=== PATIENT | female | born 1955 | race Caucasian/White ===

== ENCOUNTER 2018-10-31 10:34 | Outpatient (RCR) | payer OTHER ==
[~2018-10-31 10:34] MED LIST: LIDOCAINE/PRILOCAINE 2.5-2.5% KIT ONE; MUPIROCIN 2% OINT 22 GM TUBE ONE
[2018-10-31] MEDS ORDERED: MUPIROCIN 2% OINT 22 GM TUBE ONE (12:58)
[2018-10-31] MEDS ORDERED: LIDOCAINE/PRILOCAINE 2.5-2.5% KIT ONE (12:58)
== END 2018-11-01 ==
LOC: WCC 10:34
PROVIDERS: ATTEND Family Medicine
DX: T81.30XA Disruption of wound, unspecified, initial encounter (principal); E11.8 Type 2 diabetes mellitus with unspecified complications; I87.2 Venous insufficiency (chronic) (peripheral); L88 Pyoderma gangrenosum; D89.89 Other specified disorders involving the immune mechanism, not elsewhere classified; G99.0 Autonomic neuropathy in diseases classified elsewhere; I10 Essential (primary) hypertension; I48.91 Unspecified atrial fibrillation; M13.80 Other specified arthritis, unspecified site; W45.8XXA Other foreign body or object entering through skin, initial encounter
CPT/HCPCS: 36415; 82948; 87071; 87075; 87205

== ENCOUNTER 2018-11-20 12:02 | Outpatient (RCR) | payer MEDICARE ==
[2019-02-26] MEDS ORDERED: METFORMIN HCL500 MG PO (13:29)
[2019-02-26] MEDS ORDERED: WARFARIN SODIUM1 MG PO (13:29)
[2019-02-26] MEDS ORDERED: RESTASIS OU (13:29)
[2019-02-26] MEDS ORDERED: CYCLOBENZAPRINE10 MG PO (13:29)
[2019-02-26] MEDS ORDERED: ULTRAM50 MG PO (13:29)
[2019-02-26] MEDS ORDERED: PREDNISONE10 MG PO (13:29)
[2019-02-26] MEDS ORDERED: BETAMETHASONE D15 GM TOP (13:29)
[2019-02-26] MEDS ORDERED: LYRICA75 MG PO (13:29)
[2019-02-26] MEDS ORDERED: VITAMIN D250000 UNIT PO (13:29)
[2019-02-26] MEDS ORDERED: LISINOPRIL10 MG PO (13:29)
[2019-02-26] MEDS ORDERED: OMEPRAZOLE40 MG PO (13:29)
[2019-02-26] MEDS ORDERED: ALIGN4 MG PO (13:29)
[2019-02-26] MEDS ORDERED: FOLIC ACID1 MG PO (13:29)
[2019-02-26] MEDS ORDERED: CYMBALTA30 MG PO (13:29)
== END 2018-12-01 ==
LOC: WCC 12:02
PROVIDERS: ATTEND Family Medicine
DX: T81.30XA Disruption of wound, unspecified, initial encounter (principal); E11.8 Type 2 diabetes mellitus with unspecified complications; I87.2 Venous insufficiency (chronic) (peripheral); L88 Pyoderma gangrenosum; I10 Essential (primary) hypertension; D89.89 Other specified disorders involving the immune mechanism, not elsewhere classified; G99.0 Autonomic neuropathy in diseases classified elsewhere; I48.91 Unspecified atrial fibrillation; M13.80 Other specified arthritis, unspecified site; W45.8XXA Other foreign body or object entering through skin, initial encounter

== ENCOUNTER → 2019-01-01 | Outpatient (RCR) | payer MEDICARE ==
[~2019-01-01] MED LIST changes: +ALIGN4 MG PO; +BETAMETHASONE D15 GM TOP; +CYCLOBENZAPRINE10 MG PO; +CYMBALTA30 MG PO; +FOLIC ACID1 MG PO; +LIDOCAINE VISC 2% SOLN 15 ML UDC ONE; +LISINOPRIL10 MG PO; +LYRICA75 MG PO; +METFORMIN HCL500 MG PO; +OMEPRAZOLE40 MG PO; +PREDNISONE10 MG PO; +RESTASIS OU; +ULTRAM50 MG PO; +VITAMIN D250000 UNIT PO; +WARFARIN SODIUM1 MG PO
== END ==
LOC: WCC 12-04 09:00
PROVIDERS: ATTEND Family Medicine
DX: E11.8 Type 2 diabetes mellitus with unspecified complications (principal); S81.802A Unspecified open wound, left lower leg, initial encounter; I87.2 Venous insufficiency (chronic) (peripheral); L88 Pyoderma gangrenosum; I10 Essential (primary) hypertension; D89.89 Other specified disorders involving the immune mechanism, not elsewhere classified; G99.0 Autonomic neuropathy in diseases classified elsewhere; I48.91 Unspecified atrial fibrillation; M13.80 Other specified arthritis, unspecified site; W45.8XXA Other foreign body or object entering through skin, initial encounter

== ENCOUNTER 2019-01-22 10:50 | Outpatient (RCR) | payer MEDICARE, OTHER ==
[~2019-01-22 10:50] MED LIST changes: -ALIGN4 MG PO; -BETAMETHASONE D15 GM TOP; +COLLAGENASE OINTMENT 30 GM TUBE ONE; -CYCLOBENZAPRINE10 MG PO; -CYMBALTA30 MG PO; -FOLIC ACID1 MG PO; -LIDOCAINE VISC 2% SOLN 15 ML UDC ONE; -LISINOPRIL10 MG PO; -LYRICA75 MG PO; -METFORMIN HCL500 MG PO; -MUPIROCIN 2% OINT 22 GM TUBE ONE; -OMEPRAZOLE40 MG PO; -PREDNISONE10 MG PO; -RESTASIS OU; -ULTRAM50 MG PO; -VITAMIN D250000 UNIT PO; -WARFARIN SODIUM1 MG PO
[2019-01-22] MEDS ORDERED: LIDOCAINE/PRILOCAINE 2.5-2.5% KIT ONE (18:43)
[2019-01-22] MEDS ORDERED: MUPIROCIN 2% OINT 22 GM TUBE ONE (18:43)
[2019-01-22] MEDS ORDERED: COLLAGENASE OINTMENT 30 GM TUBE ONE (18:43)
[2019-02-26] MEDS ORDERED: BETAMETHASONE D15 GM TOP (13:29)
[2019-02-26] MEDS ORDERED: LISINOPRIL10 MG PO (13:29)
[2019-02-26] MEDS ORDERED: OMEPRAZOLE40 MG PO (13:29)
[2019-02-26] MEDS ORDERED: FOLIC ACID1 MG PO (13:29)
[2019-02-26] MEDS ORDERED: CYCLOBENZAPRINE10 MG PO (13:29)
[2019-02-26] MEDS ORDERED: VITAMIN D250000 UNIT PO (13:29)
[2019-02-26] MEDS ORDERED: METFORMIN HCL500 MG PO (13:29)
[2019-02-26] MEDS ORDERED: ALIGN4 MG PO (13:29)
[2019-02-26] MEDS ORDERED: RESTASIS OU (13:29)
[2019-02-26] MEDS ORDERED: LYRICA75 MG PO (13:29)
[2019-02-26] MEDS ORDERED: ULTRAM50 MG PO (13:29)
[2019-02-26] MEDS ORDERED: WARFARIN SODIUM1 MG PO (13:29)
[2019-02-26] MEDS ORDERED: PREDNISONE10 MG PO (13:29)
[2019-02-26] MEDS ORDERED: CYMBALTA30 MG PO (13:29)
== END 2019-02-01 ==
LOC: WCC 10:50
PROVIDERS: ATTEND Family Medicine
DX: E11.8 Type 2 diabetes mellitus with unspecified complications (principal); S81.802A Unspecified open wound, left lower leg, initial encounter; L88 Pyoderma gangrenosum; I87.2 Venous insufficiency (chronic) (peripheral); I10 Essential (primary) hypertension; D89.89 Other specified disorders involving the immune mechanism, not elsewhere classified; G99.0 Autonomic neuropathy in diseases classified elsewhere; I48.91 Unspecified atrial fibrillation; M13.80 Other specified arthritis, unspecified site; W45.8XXA Other foreign body or object entering through skin, initial encounter

== ENCOUNTER → 2019-02-27 | Day surgery (SDC) | payer MEDICARE ==
[2019-02-26 12:53] LABS: BASOPHILS % 0.1 % (0.0-1.0); EOSINOPHILS % 0.2 % (0.0-6.0); HEMATOCRIT 36.6 % (34.2-44.1); HEMOGLOBIN 11.2 g/dL (12.0-16.0); LYMPHOCYTES # (AUTO) 1.3 (1.0-3.2); LYMPHOCYTES % 13.5 % (18.0-39.1); MEAN CORPUSCULAR HEMOGLOBIN 25.3 pg (28-32); MEAN CORPUSCULAR HGB CONC 30.6 g/dL (31-35); MEAN CORPUSCULAR VOLUME 82.6 fL (81-99); MONOCYTES # (AUTO) 0.2 (0.2-0.8); MONOCYTES % 2.3 % (4.4-11.3); NEUTROPHILS # (AUTO) 8.1 (2.1-6.9); NEUTROPHILS % 83.5 % (38.7-80.0); PLATELET COUNT 212 x10e3/uL (140-360); RED BLOOD COUNT 4.43 x10e6/uL (3.6-5.1); RED CELL DISTRIBUTION WIDTH 18.1 % (11.7-14.4)
[2019-02-26 13:09] LABS: ANION GAP 15.6 mmol/L (8-16); BLOOD UREA NITROGEN 15 mg/dL (7-26); BUN/CREATININE RATIO 19 (6-25); CALCIUM 10.2 mg/dL (8.4-10.2); CARBON DIOXIDE 26 mmol/L (22-29); CHLORIDE 101 mmol/L (98-107); CREATININE, SERUM 0.79 mg/dL (0.57-1.11); EST GLOMERULAR FILTRATION RATE > 60 ML/MIN (60-); GLUCOSE 123 mg/dL (74-118); POTASSIUM 4.6 mmol/L (3.5-5.1); SODIUM 138 mmol/L (136-145)
[~2019-02-27] MED LIST changes: +ALIGN4 MG PO; +BETAMETHASONE D15 GM TOP; +CEFAZOLIN SOD 1 GM/NS 50ML 50 ML IV ONE; -COLLAGENASE OINTMENT 30 GM TUBE ONE; +CYCLOBENZAPRINE10 MG PO; +CYMBALTA30 MG PO; +DEXAMETHASONE SOD PHOS INJ 4 MG/ML VIAL ONE; +DEXTROSE 5% 250ML 250 ML IV ONE; +FENTANYL CITRATE/PF 100MCG/2 ML INJ ONE; +FOLIC ACID1 MG PO; +LIDOCAINE HCL 2% LOCAL INJ 5 ML SDV VIAL INJ ONE; -LIDOCAINE/PRILOCAINE 2.5-2.5% KIT ONE; +LISINOPRIL10 MG PO; +LYRICA75 MG PO; +METFORMIN HCL500 MG PO; +MIDAZOLAM HCL 2 MG/2 ML VIAL ONE; +OMEPRAZOLE40 MG PO; +ONDANSETRON HCL INJ 2MG/ML 2ML 2 MG/ML VIAL ONE; +PREDNISONE10 MG PO; +PROPOFOL IV EMULSION 10 MG/ML 20 ML VIAL ONE; +RESTASIS OU; +SEVOFLURANE INHAL SOLN 250 ML PEN BTL ONE; +ULTRAM50 MG PO; +VITAMIN D250000 UNIT PO; +WARFARIN SODIUM1 MG PO
--- OUTSIDE RECORDS SUMMARY | 2019-02-27 07:58 | XMS REPORT | Continuity of Care Document ---
Author Author [employer] Address Unknown Phone Unavailable Care Team Providers Care Steamfitter Apprentice Name Role Phone [employer] Unavailable Unavailable Problems Problem Status Onset Date Classification Date Reported Comments Source Hemangioma of skin and subcutaneous tissue Active Problem 03/22/2018 [facility] Unspecified osteoarthritis, unspecified site Active Problem 03/22/2018 [facility] Pyoderma gangrenosum Active Problem 03/22/2018 Madeline H Jessa,[facility] Pyoderma gangrenosum Active Problem 03/22/2018 [facility] Laceration without foreign body of left forearm, initial encounter Active Problem 03/22/2018 [facility] LDL-c greater than or equal to 100 mg/dl Active Problem 07/14/2017 Madeline H Jessa Leukocytosis, unspecified type Active Problem 07/14/2017 Madeline H Jessa Pyoderma gangrenosa Active Problem 07/14/2017 Madeline H Jessa Hyperlipidemia, unspecified hyperlipidemia type Active Problem 07/14/2017 Madeline H Jessa Diabetes mellitus Active Problem 07/14/2017 Madeline H Jessa Blurry vision Active Problem 07/14/2017 Madeline H Jessa BMI less than 19,adult Active Problem 07/14/2017 Madeline H Jessa Bronchitis Active Problem 07/14/2017 Madeline H Jessa Benign essential hypertension Active Problem 07/14/2017 Madeline H Jessa Generalized weakness Active Problem 07/14/2017 Madeline H Jessa No-show for appointment Active Problem 07/14/2017 Madeline H Jessa Unspecified open wound, left lower leg, initial encounter Active Problem 07/14/2017 Madeline H Jessa Essential hypertension, benign Active Problem 07/14/2017 Madeline H Jessa Unspecified osteoarthritis, unspecified site Active Problem 07/14/2017 Madeline H Jessa Screening for breast cancer Active Problem 07/14/2017 Madeline H Jessa Screening for osteoporosis Active Problem 07/14/2017 Madeline H Jessa Osteoarthritis, unspecified osteoarthritis type, unspecified site Active Problem 07/14/2017 Madeline H Jessa Ulcer of left lower leg Active Problem 07/14/2017 Madeline H Jessa Cellulitis of left lower limb Active Problem 07/14/2017 Madeline H Jessa Chronic pain Active Problem 07/14/2017 Madeline H Jessa BMI less than 19,adult Active Problem 07/14/2017 Madeline H Jessa Non-pressure chronic ulcer of left calf, limited to breakdown of skin Active Problem 07/14/2017 Madeline H Jessa RA Active Diagnosis 07/14/2017 Madeline H Jessa Pre-operative clearance Active Problem 07/14/2017 Madeline H Jessa Cataract, unspecified cataract type, unspecified laterality Active Problem 07/14/2017 Madeline H Jessa Dehydration Active Problem 07/14/2017 Madeline H Jessa Frequency of urination Active Problem 07/14/2017 Madeline H Jessa Gastroenteritis Active Problem 07/14/2017 Madeline H Jessa Urinary tract infection, site not specified Active Problem 03/22/2018 [facility] Dermatitis, unspecified Active Problem 03/22/2018 [facility] Impetigo, unspecified Active Problem 03/22/2018 [facility] Other skin changes due to chronic exposure to nonionizing radiation Active Problem 03/22/2018 [facility] Other respiratory tuberculosis Active Problem 03/22/2018 [facility] Frequency of micturition Active Problem 03/22/2018 [facility] Frequent falls Active Diagnosis 07/14/2017 Madeline Adrianna Germain Medications Medication Details Route Status Patient Instructions Ordering Provider Order Date Source [facility] for pyoderma gangrenosum subcutaneous injection Active 40mg/.8ml subcutaneous injection Inject 160mg on day 1, 80 mg on day 15, 40mg day 29 Kiya 03/21/2018 [facility] K-Dur 1 tablet Orally Active 10meq Orally Daily Jessa 07/10/2017 Madeline H Jessa Lasix 1 tablet Orally Active 20 mg Orally Once a day Jessa 07/10/2017 Madeline H Jessa Cipro 1 tablet Orally Active 500 mg Orally Twice a day [facility] 06/25/2017 Madeline H Jessa Glucophage 1 tablet with meals Orally Active 500 MG Orally Twice a day [facility] 10/12/2016 Madeline H Jessa Lipitor 1 tablet Orally Active 20 MG Orally Once a day [facility] 09/15/2016 Madeline H Jessa Norvasc 1 tablet Orally Active 10 mg Orally once a day [facility] 02/21/2016 Madeline H Jessa PredniSONE 1 tablet Orally Active 10 MG Orally Once a day [facility] Orally Active 20 mg Orally Once a day [facility] 02/21[facility] Om[facility] 2 capsules Orally Active 20 mg Orally Once a day [facility] 02/21/[facility] PredniSONE 1 tablet Orally Active 10 MG Orally Once a day [facility] 02/21/[facility] Norvasc 1 tablet Orally Active 10 mg Orally once a day [facility] 02/21/[facility] PredniSONE 1 tablet Orally Active 20 mg Orally Once a day [facility] 02/21/2016 [facility] Toprol XL 1 tablet Orally Active 100 mg Orally Once a day [facility] as directed Externally Active . Externally Once a Day [facility] X[facility] Petrolatum Dressing as directed Externally Active 1 Externally Once a Day [facility]/05[facility] as directed Externally Active . Externally Once a Day [facility] 10/05[facility] Petrolatum Dressing as directed Externally Active 1 Externally Once a Day [facility] 10/05/2015 [facility] Lidocaine 1 patch to intact skin remove after 12 hours Externally Active 5 % Externally Once a day [facility] 09/21[facility] Lid[facility] 1 patch to intact skin remove after 12 hours Externally Active 5 % Externally Once a day [facility] 09/21/[facility] Ultram 1 tablet as needed Orally Active 50 mg Orally every six to eight hours, PRN for Pain [facility] 05/26/2015 [facility] Protopic 1 application a thin layer to affected areas for atopic dermatitis Externally Active 0.1 % Externally Twice a day [facility] Ascorbic Acid 1 tablet Orally Active 500 MG Orally Once a day [facility] Lisinop[facility] 1 tablet Orally Active 40 MG Orally Once a day [facility] 1 tablet as needed Orally Active 50 mg Orally every six to eight hours, PRN for Pain [facility] Toprol XL 1 tablet Orally Active 200 MG Orally Once a day [facility] Zestril 1 tablet Orally Active 40 MG Orally Once a day Jessa Madeline H Jessa Zestril 1 tablet Orally Active 40 MG Orally Once a day Jessa Madeline H Jessa Glucophage 1 tablet with meals Orally Active 500 MG Orally Twice a day Jessa Madeline H Jessa Lipitor 1 tablet Orally Active 20 mg Orally Once a day Ejssa Madeline H Jessa Ultram 1 tablet as needed Orally Active 50 mg Orally every six to eight hours, PRN for Pain Jessa Madeline H Jessa Ibuprofen 1 tablet Orally Active 800 MG Orally as needed (prn) Jessa Madeline H Jessa Lyrica 1 capsule Orally Active 75 MG Orally Twice a day Jessa Madeline H Jessa Lyrica 1 capsule Orally Active 50 mg Orally Twice a day Jessa Madeline H Jessa Allergies, Adverse Reactions, Alerts Substance Category Reaction Severity Reaction type Status Date Reported Comments Source N.K.D.A. Adverse Reaction Info Not Available Adverse Reaction Active 07/10/2017 Madeline H Jessa Immunizations No Data Provided for This Section Results No Data Provided for This Section Pathology Reports No Data Provided for This Section Diagnostic Reports No Data Provided for This Section Consultation Notes No Data Provided for This Section Discharge Summaries No Data Provided for This Section History and Physicals No Data Provided for This Section Vital Signs Vital Sign Value Date Comments Source Diastolic (mm Hg) 80 07/10/2017 Madeline H Jessa Systolic (mm Hg) 140 07/10/2017 Madeline H Jessa Height 66 07/10/2017 Madeline H Jessa Temperature Oral (F) 98.0 F 07/10/2017 Madeline H Jessa Respitory Rate 16 07/10/2017 Madeline H Jessa Heart Rate 80 07/10/2017 Madeline H Jessa Diastolic (mm Hg) 60 06/25/2017 Madeline H Jessa Systolic (mm Hg) 100 06/25/2017 Madeline H Jessa Height 66 06/25/2017 Madeline H Jessa Temperature Oral (F) 97.5 F 06/25/2017 Madeline H Jessa Respitory Rate 16 06/25/2017 Madeline H Jessa Heart Rate 80 06/25/2017 Madeline H Jessa Diastolic (mm Hg) 80 06/14/2017 Madeline H Jessa Systolic (mm Hg) 140 06/14/2017 Madeline H Jessa Height 66 06/14/2017 Madeline H Jessa Temperature Oral (F) 98.2 F 06/14/2017 Madeline H Jessa Respitory Rate 16 06/14/2017 Madeline H Jessa Heart Rate 80 06/14/2017 Madeline H Jessa Diastolic (mm Hg) 80 02/26/2017 Madeline H Jessa Systolic (mm Hg) 120 02/26/2017 Madeline H Jessa Height 66 02/26/2017 Madeline H Jessa Temperature Oral (F) 98.0 F 02/26/2017 Madeline H Jessa Respitory Rate 16 02/26/2017 Madeline H Jessa Heart Rate 80 02/26/2017 Madeline H Jessa Weight 108 02/09/2017 Madeline H Jessa Height 66 02/09/2017 Madeline H Jessa Respitory Rate 16 02/09/2017 Madeline H Jessa Heart Rate 80 02/09/2017 Madeline H Jessa Diastolic (mm Hg) 80 02/09/2017 Madeline H Jessa Systolic (mm Hg) 120 02/09/2017 Madeline H Jessa Temperature Oral (F) 98.2 F 02/09/2017 Madeline H Jessa Diastolic (mm Hg) 70 10/12/2016 Madeline H Jessa Systolic (mm Hg) 120 10/12/2016 Madeline H Jessa Height 66 10/12/2016 Madeline H Jessa Temperature Oral (F) 98.0 F 10/12/2016 Madeline H Jessa Respitory Rate 16 10/12/2016 Madeline H Jessa Heart Rate 80 10/12/2016 Madeline H Jessa Weight 108 09/15/2016 Madeline H Jessa Height 66 09/15/2016 Madeline H Jessa Respitory Rate 16 09/15/2016 Madeline H Jessa Heart Rate 80 09/15/2016 Madeline H Jessa Diastolic (mm Hg) 70 09/15/2016 Madeline H Jessa Systolic (mm Hg) 120 09/15/2016 Madeline H Jessa Temperature Oral (F) 98.0 F 09/15/2016 Madeline H Jessa Weight 107 05/30/2016 Madeline H Jessa Height 66 05/30/2016 Madeline H Jessa Respitory Rate 16 05/30/2016 Madeline H Jessa Heart Rate 80 05/30/2016 Madeline H Jessa Diastolic (mm Hg) 80 05/30/2016 Madeline H Jessa Systolic (mm Hg) 130 05/30/2016 Madeline H Jessa Temperature Oral (F) 98.2 F 05/30/2016 Madeline H Jessa Diastolic (mm Hg) 80 02/21/2016 Madeline H Jessa Systolic (mm Hg) 140 02/21/2016 Madeline H Jessa Height 66 02/21/2016 Madeline H Jessa Temperature Oral (F) 98.2 F 02/21/2016 Madeline H Jessa Respitory Rate 16 02/21/2016 Madeline H Jessa Heart Rate 80 02/21/2016 Madeline H Jessa Weight 110 09/21/2015 Madeline H Jessa Height 66 09/21/2015 Madeline H Jessa Respitory Rate 16 09/21/2015 Madeline H Jessa Heart Rate 80 09/21/2015 Madeline H Jessa Diastolic (mm Hg) 80 09/21/2015 Madeline H Jessa Systolic (mm Hg) 120 09/21/2015 Madeline H Jessa Temperature Oral (F) 98.2 F 09/21/2015 Madeline H Jessa Diastolic (mm Hg) 80 07/28/2015 Madeline H Jessa Systolic (mm Hg) 120 07/28/2015 Madeline H Jessa Height 66 07/28/2015 Amdeline H Jessa Temperature Oral (F) 98.0 F 07/28/2015 Madeline H Jessa Respitory Rate 16 07/28/2015 Madeline H Jessa Heart Rate 80 07/28/2015 Madeline H Jessa Diastolic (mm Hg) 80 05/26/2015 Madeline H Jessa Systolic (mm Hg) 120 05/26/2015 Madeline H Jessa Height 66 05/26/2015 Madeline H Jessa Temperature Oral (F) 98.2 F 05/26/2015 Madeline H Jessa Respitory Rate 16 05/26/2015 Madeline H Jessa Heart Rate 80 05/26/2015 Madeline H Jessa Weight 112 02/01/2015 Madeline H Jessa Height 66 02/01/2015 Madeline H Jessa Respitory Rate 16 02/01/2015 Madeline H Jessa Heart Rate 80 02/01/2015 Madeline H Jessa Diastolic (mm Hg) 80 02/01/2015 Madeline H Jessa Systolic (mm Hg) 160 02/01/2015 Madeline H Jessa Temperature Oral (F) 98.2 F 02/01/2015 Madeline H Jessa Encounters Location Location Details Encounter Type Encounter Number Reason For Visit Attending Provider ADM Date DC Date Status Source Madeline Germain MD Refill [id number] 10/05/2015 10/05/2015 Madeline Germain MD Refill [id number] 10/05/2015 10/05/2015 Madeline Germain MD Refill [id number] 10/05/2015 10/05/2015 Madeline Germain MD Refill [id number] 10/05/2015 10/05/2015 Madeline Germain MD Referral - Eye Dr. [id number] 02/21/2016 02/21/2016 Madeline Germain MD Referral - Eye Dr. [id number] 02/21/2016 02/21/2016 Madeline Germain MD Referral - Eye Dr. [id number] 02/21/2016 02/21/2016 Madeline Germain MD F/Up from [facility] [id number] 05/30/2016 05/30/2016 Madeline Germain MD Mammogram/BMD Orders [id number] 05/30/2016 05/30/2016 Madeline Germain MD Mammogram/BMD Orders [id number] 05/30/2016 05/30/2016 Madeline Germain Procedures No Data Provided for This Section Assessment and Plan No Data Provided for This Section Plan of Care No Data Provided for This Section Social History Social History Date Source Social History ElementQualifiersDate Reported Tobacco Use: . Are you a: never smoker May 30, 2016 Marital Status: . Single May 30, 2016 Caffeine intake? . Status: Yes, What type: Coffee, 2 Cups Per Day May 30, 2016 Do you drink alcohol? . Status: No May 30, 2016 05/30/2016 Madeline Germain Family History Value Date Source QualifierDescriptionCommentDate Reported Maternal Grandmother Comment not available Feb 21, 2016 Paternal Grandmother Comment not available Feb 21, 2016 Siblings Comment not available Feb 21, 2016 Maternal Grandfather Comment not available Feb 21, 2016 Children Comment not available Feb 21, 2016 Father Parkinson Feb 21, 2016 Paternal Grandfather Comment not available Feb 21, 2016 Mother Alzheimer Feb 21, 2016 Other: Comment not available Feb 21, 2016 02/28/2016 Madeline Germain Advance Directives No Data Provided for This Section Functional Status No Data Provided for This Section
--- OUTSIDE RECORDS SUMMARY | 2019-02-27 07:58 | XMS REPORT ---
Author Author Madeline Germain Organization [employer] Address Unknown Phone Unavailable Care Team Providers Care Non Destructive Evaluation Technician Name Role Phone Madeline Germain CP Unavailable Allergies, Adverse Reactions, Alerts Substance Reaction Event Type N.K.D.A. Info Not Available Non Drug Allergy Problems Problem Type Condition Code Onset Dates Condition Status Assessment Non-pressure chronic ulcer of left calf, 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 Active Problem Unspecified osteoarthritis, unspecified site 715.90 Active Problem BMI less than 19,adult V85.0 Active Problem Pyoderma gangrenosum L88 Active Problem Ulcer of left lower leg L97.929 Active Problem Non-pressure chronic ulcer of left calf, 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 Active Problem Unspecified open wound, left lower leg, initial encounter 891.0 Active Problem Essential hypertension, benign 401.1 Active Problem Chronic pain G89.29 Active Problem Cellulitis of left lower limb 682.6 Active Assessment Chronic pain G89.29 Active Assessment Ulcer of left lower leg L97.929 Active Assessment Pyoderma gangrenosum L88 Active Medications Medication Code System Code Instructions Start Date End Date Status Dosage Lyrica [facility] [address]-21 50 mg Orally Twice a day Active 1 capsule Ibuprofen [facility] [address]-96 800 MG Orally as needed (prn) Active 1 tablet Ultram [facility] [address]-23 50 mg Orally every six to eight hours, PRN for Pain May 26, 2015 Active 1 [place] [address]-96 50 mg Orally every six to eight hours, PRN for Pain Active 1 tablet as needed Vital Signs Date/Time: May 26, 2015 Blood Pressure Diastolic 80 mm Hg Blood Pressure Systolic 120 mm Hg Height 66 in Temperature 98.2 F Respiratory Rate 16 /min Cardiac Monitoring Heart Rate 80 /min Results No Known Results Summary Purpose [employer] Submission
--- OUTSIDE RECORDS SUMMARY | 2019-02-27 07:58 | XMS REPORT ---
Author Author Madeline Germain Organization [employer] Address Unknown Phone Unavailable Care Team Providers Care Laser Beam Trim Operator Name Role Phone Madeline Germain CP Unavailable Allergies, Adverse Reactions, Alerts Substance Reaction Event Type N.K.D.A. Info Not Available Non Drug Allergy Problems Problem Type Condition Code Onset Dates Condition Status Assessment BMI less than 19,adult V85.0 Active Assessment Essential hypertension, benign 401.1 Active Assessment Unspecified osteoarthritis, unspecified site 715.90 Active Problem Unspecified open wound, left lower leg, initial encounter 891.0 Active Problem Essential hypertension, benign 401.1 Active Problem Cellulitis of left lower limb 682.6 Active Assessment Cellulitis of left lower limb 682.6 Active Assessment Unspecified open wound, left lower leg, initial encounter 891.0 Active Problem Unspecified osteoarthritis, unspecified site 715.90 Active Problem BMI less than 19,adult V85.0 Active Medications Medication Code System Code Instructions Start Date End Date Status Dosage Ibuprofen [facility] [address]-91 800 MG Orally as needed (prn) Active 1 tablet Vital Signs Date/Time: Feb 01, 2015 BMI 18.08 Index Weight 112 lbs Height 66 in Respiratory Rate 16 /min Cardiac Monitoring Heart Rate 80 /min Blood Pressure Diastolic 80 mm Hg Blood Pressure Systolic 160 mm Hg Temperature 98.2 F Results No Known Results Summary Purpose [employer] Submission
--- OUTSIDE RECORDS SUMMARY | 2019-02-27 07:58 | XMS REPORT ---
Author Author Madeline Germain Organization [employer] Address Unknown Phone Unavailable Care Team Providers Care Recovery Collector Name Role Phone Madeline Germain CP Unavailable Allergies, Adverse Reactions, Alerts Substance Reaction Event Type N.K.D.A. Info Not Available Non Drug Allergy Problems Problem Type Condition Code Onset Dates Condition Status Problem Unspecified open wound, left lower leg, initial encounter 891.0 Active Problem Chronic pain G89.29 Active Problem Cellulitis of left lower limb 682.6 Active Problem BMI less than 19,adult Z68.1 Active Problem Pyoderma gangrenosa L88 Active Problem Diabetes mellitus E11.9 Active Problem Pyoderma gangrenosum L88 Active Problem Ulcer of left lower leg L97.929 Active Problem RA (rheumatoid arthritis) M06.9 Active Problem Non-pressure chronic ulcer of left calf, 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 Active Assessment BMI less than 19,adult Z68.1 Active Assessment RA (rheumatoid arthritis) M06.9 Active Assessment Diabetes mellitus E11.9 Active Problem BMI less than 19,adult V85.0 Active Assessment Chronic pain G89.29 Active Problem Unspecified osteoarthritis, unspecified site 715.90 Active Assessment Pyoderma gangrenosa L88 Active Problem Essential hypertension, benign 401.1 Active Medications Medication Code System Code Instructions Start Date End Date Status Dosage Ultram [facility] [address]-46 50 mg Orally every six to eight hours, PRN for Pain [facility] 1 tablet [facility] [address] . Externally Once a Day October 05, 2015 Active as directed Ibuprofen [facility] [address]-89 800 MG Orally as needed (prn) Active 1 tablet Lyrica [facility] [address]-66 50 mg Orally Twice a day Active 1 capsule Lidocaine [facility] [address]-74 5 % Externally Once a day September 21, 2015 Active 1 patch to intact skin remove after 12 hours Vital Signs Date/Time: September 21, 2015 BMI 17.75 Index Weight 110 lbs Height 66 in Respiratory Rate 16 /min Cardiac Monitoring Heart Rate 80 /min Blood Pressure Diastolic 80 mm Hg Blood Pressure Systolic 120 mm Hg Temperature 98.2 F Results No Known Results Summary Purpose [employer] Submission
--- OUTSIDE RECORDS SUMMARY | 2019-02-27 07:58 | XMS REPORT ---
Author Author Madeline Germain Organization [employer] Address Unknown Phone Unavailable Care Team Providers Care Computer Network Specialist Name Role Phone Madeline Germain CP Unavailable Allergies, Adverse Reactions, Alerts Substance Reaction Event Type N.K.D.A. Info Not Available Non Drug Allergy Problems Problem Type Condition Code Onset Dates Condition Status Problem Unspecified osteoarthritis, unspecified site 715.90 Active Problem Unspecified open wound, left lower leg, initial encounter 891.0 Active Problem Essential hypertension, benign 401.1 Active Problem RA (rheumatoid arthritis) M06.9 Active Problem Non-pressure chronic ulcer of left calf, 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 Active Problem Pyoderma gangrenosa L88 Active Problem Chronic pain G89.29 Active Problem Cellulitis of left lower limb 682.6 Active Problem Pyoderma gangrenosum L88 Active Problem Ulcer of left lower leg L97.929 Active Assessment RA (rheumatoid arthritis) M06.9 Active Assessment Pyoderma gangrenosa L88 Active Problem BMI less than 19,adult V85.0 Active Medications Medication Code System Code Instructions Start Date End Date Status Dosage Ibuprofen [facility] [address]-76 800 MG Orally as needed (prn) Active 1 tablet Ultram [facility] [address]-03 50 mg Orally every six to eight hours, PRN for Pain Active 1 tablet as needed Lyrica [facility] [address]-96 50 mg Orally Twice a day Active 1 capsule Vital Signs Date/Time: Jul 28, 2015 Blood Pressure Diastolic 80 mm Hg Blood Pressure Systolic 120 mm Hg Height 66 in Temperature 98.0 F Respiratory Rate 16 /min Cardiac Monitoring Heart Rate 80 /min Results No Known Results Summary Purpose [employer] Submission
--- OUTSIDE RECORDS SUMMARY | 2019-02-27 07:58 | XMS REPORT ---
Author Author Madeline Germain Organization [employer] Address Unknown Phone Unavailable Care Team Providers Care Zoo Veterinarian Name Role Phone Madeline Germain CP Unavailable Allergies, Adverse Reactions, Alerts Substance Reaction Event Type N.K.D.A. Info Not Available Non Drug Allergy Problems Problem Type Condition Code Onset Dates Condition Status Assessment LDL-c greater than or equal to 100 mg/dl Z78.9 Active Assessment Leukocytosis, unspecified type D72.829 Active Assessment Pyoderma gangrenosa L88 Active Assessment Hyperlipidemia, unspecified hyperlipidemia type E78.5 Active Problem Diabetes mellitus E11.9 Active Assessment Diabetes mellitus E11.9 Active Problem Blurry vision H53.8 Active Problem BMI less than 19,adult V85.0 Active Problem Bronchitis J40 Active Problem Benign essential hypertension I10 Active Problem Generalized weakness R53.1 Active Problem LDL-c greater than or equal to 100 mg/dl Z78.9 Active Problem No-show for appointment Z53.29 Active Problem Unspecified open wound, left lower leg, initial encounter 891.0 Active Problem Essential hypertension, benign 401.1 Active Problem Leukocytosis, unspecified type D72.829 Active Problem Unspecified osteoarthritis, unspecified site 715.90 Active Problem Screening for breast cancer Z12.39 Active Problem Screening for osteoporosis Z13.820 Active Problem Hyperlipidemia, unspecified hyperlipidemia type E78.5 Active Problem Osteoarthritis, unspecified osteoarthritis type, unspecified site M19.90 Active Problem Ulcer of left lower leg L97.929 Active Problem Pyoderma gangrenosum L88 Active Problem Cellulitis of left lower limb 682.6 Active Problem Chronic pain G89.29 Active Problem Pyoderma gangrenosa L88 Active Problem BMI less than 19,adult Z68.1 Active Problem Non-pressure chronic ulcer of left calf, 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 Active Problem RA (rheumatoid arthritis) M06.9 Active Medications Medication Code System Code Instructions Start Date End Date Status Dosage Lipitor [facility] [address]-67 20 MG Orally Once a day September 15, 2016 Active 1 tablet Ascorbic Acid [facility] [address]-05 500 MG Orally Once a day Active 1 tablet Lisinopril [facility] [address]-55 40 MG Orally Once a day Active 1 tablet Lidocaine [facility] [address]-22 5 % Externally Once a day September 21, 2015 Active 1 patch to intact skin remove after 12 hours Norvasc [facility] [address]-58 10 mg Orally once a day Feb 21, 2016 Active 1 tablet Medihoney Wound/Burn Dressing [facility] [address]856 . Externally Once a Day October 05, 2015 Active as directed Glucophage [facility] [address]-64 500 MG Orally Twice a day October 12, 2016 Active 1 tablet with meals PredniSONE [facility] [address]-48 10 MG Orally Once a day Feb 21, 2016 Active 1 tablet Ultram [facility] [address]-86 50 mg Orally every six to eight hours, PRN for Pain Active 1 tablet as needed Omeprazole [facility] [address]-80 20 mg Orally Once a day Feb 21, 2016 Active 2 capsules Xeroform Petrolatum Dressing [facility] 8884-577480 1 Externally Once a Day October 05, 2015 Active as directed Toprol XL [facility] [address]-14 200 MG Orally Once a day Active 1 tablet Zestril [facility] [address]-61 40 MG Orally Once a day Active 1 tablet Vital Signs Date/Time: October 12, 2016 Blood Pressure Diastolic 70 mm Hg Blood Pressure Systolic 120 mm Hg Height 66 in Temperature 98.0 F Respiratory Rate 16 /min Cardiac Monitoring Heart Rate 80 /min Results No Known Results Summary Purpose [employer] Submission
--- OUTSIDE RECORDS SUMMARY | 2019-02-27 07:58 | XMS REPORT ---
Author Author Holland Huertas Organization [employer] Address Unknown Phone Unavailable Care Team Providers Care Emergency Physician Name Role Phone Holland Huertas CP Unavailable Allergies No Known Allergies Problems Problem Type Condition Code Onset Dates Condition Status Problem Hemangioma of skin and subcutaneous tissue D18.01 Active Problem Unspecified osteoarthritis, unspecified site M19.90 Active Problem Pyoderma gangrenosum L88 Active Medications No Known Medications Results No Known Results Summary Purpose [employer] Submission
--- OUTSIDE RECORDS SUMMARY | 2019-02-27 07:58 | XMS REPORT ---
Author Author Madeline Germain Organization [employer] Address Unknown Phone Unavailable Care Team Providers Care Ampoule Filler Name Role Phone Madeline Germain CP Unavailable Allergies, Adverse Reactions, Alerts Substance Reaction Event Type N.K.D.A. Info Not Available Non Drug Allergy Problems Problem Type Condition Code Onset Dates Condition Status Assessment Osteoarthritis, unspecified osteoarthritis type, unspecified site M19.90 Active Problem RA (rheumatoid arthritis) M06.9 Active Assessment Hyperlipidemia, unspecified hyperlipidemia type E78.5 Active Problem Pyoderma gangrenosa L88 Active Assessment Pyoderma gangrenosa L88 Active Problem BMI less than 19,adult Z68.1 Active Problem Blurry vision H53.8 Active Problem Diabetes mellitus E11.9 Active Problem Osteoarthritis, unspecified osteoarthritis type, unspecified site M19.90 Active Problem Screening for breast cancer Z12.39 Active Problem BMI less than 19,adult V85.0 Active Assessment Benign essential hypertension I10 Active Problem Hyperlipidemia, unspecified hyperlipidemia type E78.5 Active Assessment Diabetes mellitus E11.9 Active Problem Generalized weakness R53.1 Active Problem Bronchitis J40 Active Problem Screening for osteoporosis Z13.820 Active Problem Benign essential hypertension I10 Active Problem Unspecified open wound, left lower leg, initial encounter 891.0 Active Problem Cellulitis of left lower limb 682.6 Active Problem Unspecified osteoarthritis, unspecified site 715.90 Active Problem Essential hypertension, benign 401.1 Active Problem Pyoderma gangrenosum L88 Active Problem Non-pressure chronic ulcer of left calf, 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 Externally Once a Day October 05, 2015 Active as directed Lisinopril [facility] [address]-89 40 MG Orally Once a day Active 1 tablet Ascorbic Acid [facility] [address]-40 500 MG Orally Once a day Active 1 tablet Omeprazole [facility] [address]-96 20 mg Orally Once a day Feb 21, 2016 Active 2 capsules Lidocaine [facility] [address]-89 5 % Externally Once a day September 21, 2015 Active 1 patch to intact skin remove after 12 hours Lyrica [facility] [address]-10 75 MG Orally Twice a day Inactive 1 capsule Norvasc [facility] [address]-15 10 mg Orally once a day Feb 21, 2016 Active 1 tablet Toprol XL [facility] [address]-49 200 MG Orally Once a day Active 1 tablet Lipitor [facility] [address]-03 20 MG Orally Once a day September 15, 2016 Active 1 tablet PredniSONE [facility] [address]-09 10 MG Orally Once a day Feb 21, 2016 Active 1 tablet Ultram [facility] [address]-96 50 mg Orally every six to eight hours, PRN for Pain Active 1 tablet as needed Vital Signs Date/Time: September 15, 2016 BMI 17.43 Index Weight 108 lbs Height 66 in Respiratory Rate 16 /min Cardiac Monitoring Heart Rate 80 /min Blood Pressure Diastolic 70 mm Hg Blood Pressure Systolic 120 mm Hg Temperature 98.0 F Results No Known Results Summary Purpose [employer] Submission
--- OUTSIDE RECORDS SUMMARY | 2019-02-27 07:59 | XMS REPORT ---
Author Author Madeline Germain Organization [employer] Address Unknown Phone Unavailable Care Team Providers Care Cabinet Finisher Name Role Phone Madeline Germain CP Unavailable Allergies No Known Allergies Problems Problem Type Condition Code Onset Dates Condition Status Assessment Pre-operative clearance Z01.818 Active Problem Blurry vision H53.8 Active Problem BMI less than 19,adult V85.0 Active Problem Bronchitis J40 Active Problem Unspecified osteoarthritis, unspecified site 715.90 Active Problem Generalized weakness R53.1 Active Problem Screening for osteoporosis Z13.820 Active Problem Benign essential hypertension I10 Active Problem Leukocytosis, unspecified type D72.829 Active Problem LDL-c greater than or equal to 100 mg/dl Z78.9 Active Problem Cellulitis of left lower limb 682.6 Active Problem Unspecified open wound, left lower leg, initial encounter 891.0 Active Problem Pre-operative clearance Z01.818 Active Problem Essential hypertension, benign 401.1 Active Problem Osteoarthritis, unspecified osteoarthritis type, unspecified site M19.90 Active Problem Screening for breast cancer Z12.39 Active Problem No-show for appointment Z53.29 Active Problem Hyperlipidemia, unspecified hyperlipidemia type E78.5 Active Problem Pyoderma gangrenosum L88 Active Problem Non-pressure chronic ulcer of left calf, 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
--- OUTSIDE RECORDS SUMMARY | 2019-02-27 07:59 | XMS REPORT ---
Author Author Madeline Germain Organization [employer] Address Unknown Phone Unavailable Care Team Providers Care Credit Reporting Clerk Name Role Phone Madeline Germain CP Unavailable Allergies, Adverse Reactions, Alerts Substance Reaction Event Type N.K.D.A. Info Not Available Non Drug Allergy Problems Problem Type Condition Code Onset Dates Condition Status Assessment Pyoderma gangrenosa L88 Active Assessment Hyperlipidemia, unspecified hyperlipidemia type E78.5 Active Assessment Benign essential hypertension I10 Active Assessment Diabetes mellitus E11.9 Active Problem [...] Active Problem Pyoderma gangrenosa L88 Active Medications Medication Code System Code Instructions Start Date End Date Status Dosage Medihoney Wound/Burn Dressing [facility] [address] . Externally Once a Day October 05, 2015 Active as directed Lidocaine [facility] [address]-17 5 % Externally Once a day September 21, 2015 Active 1 patch to intact skin remove after 12 hours Lipitor [facility] 92373952177 20 MG Orally Once a day Active 1 tablet Ascorbic Acid [facility] [address]-44 500 MG Orally Once a day Active 1 tablet Glucophage [facility] [address]-63 500 MG Orally Twice a day October 12, 2016 Active 1 tablet with meals Ultram [facility] [address]-65 50 mg Orally every six to eight hours, PRN for Pain Active 1 tablet as needed Zestril [facility] [address]-45 40 MG Orally Once a day Active 1 tablet PredniSONE [facility] [address]-70 10 MG Orally Once a day Feb 21, 2016 Active 1 tablet Omeprazole [facility] [address]-49 20 mg Orally Once a day Feb 21, 2016 Active 2 capsules Xeroform Petrolatum Dressing [facility] 8884-474991 1 Externally Once a Day October 05, 2015 Active as directed Norvasc [facility] [address]-90 10 mg Orally once a day Feb 21, 2016 Active 1 tablet Toprol XL [facility] [address]-16 200 MG Orally Once a day Active 1 tablet Vital Signs Date/Time: Feb 26, 2017 Blood Pressure Diastolic 80 mm Hg Blood Pressure Systolic 120 mm Hg Height 66 in Temperature 98.0 F Respiratory Rate 16 /min Cardiac Monitoring Heart Rate 80 /min Results No Known Results Summary Purpose [employer]Clinical[employer] Submission
--- OUTSIDE RECORDS SUMMARY | 2019-02-27 07:59 | XMS REPORT ---
Author Author Holland Huertas Organization [employer] Address Unknown Phone Unavailable Care Team Providers Care Batch Heat Treat Operator Name Role Phone Holland Huertas CP Unavailable Allergies No Known Allergies Problems Problem Type Condition Code Onset Dates Condition Status Problem Pyoderma gangrenosum L88 Active Problem Hemangioma of skin and subcutaneous tissue D18.01 Active Problem Pyoderma gangrenosum 686.01 Active Problem Unspecified osteoarthritis, unspecified site M19.90 Active Assessment Pyoderma gangrenosum L88 Active Medications Medication Code System Code Instructions Start Date End Date Status Dosage Protopic [facility] [address]-96 0.1 % Externally Twice a day Active 1 application a thin layer to affected areas for atopic dermatitis Results No Known Results Summary Purpose [employer]ClinicalWorks Submission
--- OUTSIDE RECORDS SUMMARY | 2019-02-27 07:59 | XMS REPORT ---
Author Author Holland Huertas Organization [employer] Address Unknown Phone Unavailable Care Team Providers Care Instrument Calibrator Name Role Phone Holland Huertas CP Unavailable Allergies No Known Allergies Problems Problem Type Condition Code Onset Dates Condition Status Problem Pyoderma gangrenosum L88 Active Problem Pyoderma gangrenosum 686.01 Active Problem Hemangioma of skin and subcutaneous tissue D18.01 Active Problem Unspecified osteoarthritis, unspecified site M19.90 Active Problem Urinary tract infection, site not specified N39.0 Active Problem Frequency of micturition R35.0 Active Problem Impetigo, unspecified L01.00 Active Problem 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
--- OUTSIDE RECORDS SUMMARY | 2019-02-27 07:59 | XMS REPORT ---
Author Author Holland Huertas Organization [employer] Address Unknown Phone Unavailable Care Team Providers Care Machine Group Leader Name Role Phone Holland Huertas CP Unavailable Allergies No Known Allergies Problems Problem Type Condition Code Onset Dates Condition Status Problem Unspecified osteoarthritis, unspecified site M19.90 Active Problem Hemangioma of skin and subcutaneous tissue D18.01 Active Problem Pyoderma gangrenosum L88 Active Problem Urinary tract infection, site not specified N39.0 Active Problem Dermatitis, unspecified L30.9 Active Problem Impetigo, unspecified L01.00 Active Problem Laceration without foreign body of left forearm, initial encounter S51.812A Active Problem Pyoderma gangrenosum 686.01 Active Problem Other skin changes due to chronic exposure to nonionizing radiation L57.8 Active Problem 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
--- OUTSIDE RECORDS SUMMARY | 2019-02-27 07:59 | XMS REPORT ---
Author Author Holland Huertas Organization [employer] Address Unknown Phone Unavailable Care Team Providers Care Seal Extrusion Operator Name Role Phone Holland Huertas CP [...] exposure to nonionizing radiation L57.8 Active Medications Medication Code System Code Instructions Start Date End Date Status Dosage Humira [facility] [id number] 40mg/.8ml subcutaneous injection Inject 160mg on day 1, 80 mg on day 15, 40mg day 29 Mar 21, 2018 Active for pyoderma gangrenosum Results No Known Results Summary Purpose [employer]ClinicalWorks Submission
--- OUTSIDE RECORDS SUMMARY | 2019-02-27 07:59 | XMS REPORT ---
Author Author Madeline Germain Organization [employer] Address Unknown Phone Unavailable Care Team Providers Care Pari Mutuel Ticket Cashier Name Role Phone Madeline Germain CP Unavailable Encounters Encounter Location Date Refill Madeline Germain MD October 05, 2015 Problems Problem Type Condition ICD-9 Code Onset Dates Condition Status Problem Unspecified [...] to breakdown of skin L97.221 Active Problem BMI less than 19,adult V85.0 Active Problem Unspecified osteoarthritis, unspecified site 715.90 Active Problem Essential hypertension, benign 401.1 Active Medications Medication Code System Code Instructions Start Date End Date Status Dosage Xeroform Petrolatum Dressing [facility] 8884-050160 1 Externally Once a Day October 05, 2015 Active as directed Social History Social History Element Qualifiers Date Reported Tobacco Use: . Are you a: never smoker September 21, 2015 Marital Status: . Single September 21, 2015 Caffeine intake? . Status: Yes, What type: Coffee, 2 Cups Per Day September 21, 2015 Do you drink alcohol? . Status: No September 21, 2015 Summary Purpose eClinicalWorks Submission
--- OUTSIDE RECORDS SUMMARY | 2019-02-27 07:59 | XMS REPORT ---
Author Author Madeline Germain [facility] [employer] Address Unknown Phone Unavailable Care Team Providers Care Presidential Helicopter Crew Chief Name Role Phone Madeline Germain Unavailable Allergies, Adverse Reactions, Alerts Substance Reaction Event Type N.K.D.A. Info Not Available Non Drug Allergy Encounters Encounter Location Date F/Up from Hospital Madeline Germain MD May 30, 2016 Refill Madeline Germain MD October 05, 2015 Referral - Eye DrDivya Germain MD Feb 21, 2016 Mammogram/BMD Orders Madeline Germain MD May 30, 2016 Problems Problem Type Condition ICD-9 Code Onset Dates Condition Status Problem RA (rheumatoid arthritis) M06.9 Active Problem BMI less than 19,adult Z68.1 Active Problem Pyoderma gangrenosa L88 Active Problem Screening for osteoporosis Z13.820 Active Assessment Benign essential hypertension I10 Active Problem Benign essential hypertension I10 Active Assessment Diabetes mellitus E11.9 Active Problem Screening for breast cancer Z12.39 Active Problem Blurry vision H53.8 Active Problem Diabetes mellitus E11.9 Active Problem Generalized weakness R53.1 Active Problem Bronchitis J40 Active Problem Unspecified osteoarthritis, unspecified site 715.90 Active Problem Essential hypertension, benign 401.1 Active Assessment Pyoderma gangrenosum L88 Active Problem BMI less than 19,adult V85.0 Active Problem Chronic pain G89.29 Active Problem Ulcer of left lower leg L97.929 Active Problem Unspecified open wound, left lower leg, initial encounter 891.0 Active Problem Pyoderma gangrenosum L88 Active Problem Cellulitis of left lower limb 682.6 Active Problem Non-pressure chronic ulcer of left calf, 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 Externally Once a Day October 05, 2015 Active as directed Ibuprofen [facility] [address]-23 800 MG Orally as needed (prn) Active 1 tablet Xeroform Petrolatum Dressing [facility] 8884-588217 1 Externally Once a Day October 05, 2015 Active as directed Toprol XL [facility] [address]-59 200 MG Orally Once a day Active 1 tablet Omeprazole [facility] [address]-77 20 mg Orally Once a day Feb 21, 2016 Active 2 capsules PredniSONE [facility] [address]-33 20 mg Orally Once a day Feb 21, 2016 Active 1 tablet Ultram [facility] [address]-85 50 mg Orally every six to eight hours, PRN for Pain Active 1 tablet as needed Lidocaine [facility] [address]-60 5 % Externally Once a day September 21, 2015 Active 1 patch to intact skin remove after 12 hours Lyrica [facility] [address]-76 50 mg Orally Twice a day Active 1 capsule Norvasc [facility] [address]-51 10 mg Orally once a day Feb 21, 2016 Active 1 tablet Lisinopril [facility] [address]-99 40 MG Orally Once a day Active 1 tablet Ascorbic Acid [facility] [address]-26 500 MG Orally Once a day Active 1 tablet Toprol XL [facility] [address]-38 100 mg Orally Once a day Feb 21, 2016 Active 1 tablet Social History Social History Element Qualifiers Date Reported Tobacco Use: . Are you a: never smoker May 30, 2016 Marital Status: . Single May 30, 2016 Caffeine intake? . Status: Yes, What type: Coffee, 2 Cups Per Day May 30, 2016 Do you drink alcohol? . Status: No May 30, 2016 Vital Signs Date/Time: May 30, 2016 Weight 107 lbs Height 66 in Respiratory Rate 16 /min Cardiac Monitoring Heart Rate 80 /min Blood Pressure Diastolic 80 mm Hg Blood Pressure Systolic 130 mm Hg Temperature 98.2 F Summary Purpose eClinicalWorks Submission
--- OUTSIDE RECORDS SUMMARY | 2019-02-27 07:59 | XMS REPORT ---
Author Author Madeline Germain Organization [employer] Address Unknown Phone Unavailable Care Team Providers Care Surgical Assist Name Role Phone Madeline Germain Unavailable Allergies, Adverse Reactions, Alerts Substance Reaction Event Type N.K.D.A. Info Not Available Non Drug Allergy Encounters Encounter Location Date Refill Madeline Germain MD October 05, 2015 Referral - Eye Dr. 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 Active Problem Generalized weakness R53.1 Active Assessment Generalized weakness R53.1 Active Problem Bronchitis J40 Active Assessment Bronchitis J40 Active Assessment Blurry vision H53.8 Active Problem Benign essential hypertension I10 Active Problem BMI less than 19,adult Z68.1 Active Problem Pyoderma gangrenosa L88 Active Problem Blurry vision H53.8 Active Problem Diabetes mellitus E11.9 Active Assessment Pyoderma gangrenosum L88 Active Problem BMI less than 19,adult V85.0 Active Assessment Benign essential hypertension I10 Active Assessment Non-pressure chronic ulcer of left calf, 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 Externally Once a Day October 05, 2015 Active as directed Toprol XL MEDISPAN [address]-91 100 mg Orally Once a day Feb 21, 2016 Active 1 tablet Norvasc [facility] [address]-04 10 mg Orally once a day Feb 21, 2016 Active 1 tablet Lyrica [facility] [address]-92 50 mg Orally Twice a day Active 1 capsule Lidocaine [facility] [address]-64 5 % Externally Once a day September 21, 2015 Active 1 patch to intact skin remove after 12 hours Omeprazole [facility] [address]-88 20 mg Orally Once a day Feb 21, 2016 Active 2 capsules Ibuprofen [facility] [address]-57 800 MG Orally as needed (prn) Active 1 tablet Xeroform Petrolatum Dressing [facility] 8884-906239 1 Externally Once a Day October 05, 2015 Active as directed PredniSONE [facility] [address]-41 20 mg Orally Once a day Feb 21, 2016 Active 1 tablet Social History Social History Element Qualifiers Date Reported Tobacco Use: . Are you a: never smoker Feb 21, 2016 Marital Status: . Single Feb 21, 2016 Caffeine intake? . Status: Yes, What type: Coffee, 2 Cups Per Day Feb 21, 2016 Do you drink alcohol? . Status: No Feb 21, 2016 Family history Qualifier Description Comment Date Reported Maternal Grandmother Comment not available Feb [...] Other: Comment not available Feb 21, 2016 Vital Signs Date/Time: Feb 21, 2016 Blood Pressure Diastolic 80 mm Hg Blood Pressure Systolic 140 mm Hg Height 66 in Temperature 98.2 F Respiratory Rate 16 /min Cardiac Monitoring Heart Rate 80 /min Summary Purpose eClinicalWorks Submission
--- OUTSIDE RECORDS SUMMARY | 2019-02-27 07:59 | XMS REPORT ---
Author Author Madeline Germain Organization [employer] Address Unknown Phone Unavailable Care Team Providers Care Computer Systems Security Administrator Name Role Phone Madeline Germain CP Unavailable Allergies, Adverse Reactions, Alerts Substance Reaction Event Type N.K.D.A. Info Not Available Non Drug Allergy Problems Problem Type Condition Code Onset Dates Condition Status Assessment Dehydration E86.0 Active Assessment Frequency of urination R35.0 Active Assessment Generalized weakness R53.1 Active Assessment Gastroenteritis K52.9 Active Problem Unspecified osteoarthritis, unspecified site 715.90 Active Problem Unspecified open wound, left lower leg, initial encounter 891.0 Active Problem Cellulitis of left lower limb 682.6 Active Problem Essential hypertension, benign 401.1 Active Problem BMI less than 19,adult V85.0 Active Problem Screening for breast cancer Z12.39 Active Problem Chronic pain G89.29 Active Problem Osteoarthritis, unspecified osteoarthritis type, unspecified site M19.90 Active Problem Ulcer of left lower leg L97.929 Active Problem Hyperlipidemia, unspecified hyperlipidemia type E78.5 Active Problem LDL-c greater than or equal to 100 mg/dl Z78.9 Active Problem No-show for appointment Z53.29 Active Problem Dehydration E86.0 Active Problem Frequency of urination R35.0 Active Problem Pyoderma gangrenosa L88 Active Problem Pyoderma gangrenosum L88 Active Problem Gastroenteritis K52.9 Active Problem Non-pressure chronic ulcer of left calf, 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 Active Problem Pre-operative clearance Z01.818 Active Problem Leukocytosis, unspecified type D72.829 Active Problem No history of influenza vaccination Z78.9 Active Problem Cataract, unspecified cataract type, unspecified laterality H26.9 Active Problem BMI less than 19,adult Z68.1 Active Assessment Diabetes mellitus E11.9 Active Problem Blurry vision H53.8 Active Problem RA (rheumatoid arthritis) M06.9 Active Problem Diabetes mellitus E11.9 Active Problem Bronchitis J40 Active Problem Screening for osteoporosis Z13.820 Active Problem Benign essential hypertension I10 Active Problem Generalized weakness R53.1 Active Medications Medication Code System Code Instructions Start Date End Date Status Dosage Ultram [facility] 20855204676 50 mg Orally every six to eight hours, PRN for Pain Active 1 tablet as needed Cipro [facility] 53319025750 500 mg Orally Twice a day Jun 25, 2017 Active 1 tablet Lipitor [facility] 42984272645 20 MG Orally Once a day Active 1 tablet Lipitor [facility] 17531993599 20 mg Orally Once a day Active 1 tablet Norvasc [facility] 73167200029 10 mg Orally once a day Feb 21, 2016 Active 1 tablet Toprol XL [facility] [address]-26 200 MG Orally Once a day Active 1 tablet Omeprazole [facility] 37273163691 20 mg Orally Once a day Feb 21, 2016 Active 2 capsules PredniSONE [facility] 15837832336 10 MG Orally Once a day Feb 21, 2016 Active 1 tablet Glucophage [facility] 10207925333 500 MG Orally Twice a day Active 1 tablet with meals Zestril [facility] 12260281303 40 MG Orally Once a day Active 1 tablet Vital Signs Date/Time: Jun 25, 2017 Blood Pressure Diastolic 60 mm Hg Blood Pressure Systolic 100 mm Hg Height 66 in Temperature 97.5 F Respiratory Rate 16 /min Cardiac Monitoring Heart Rate 80 /min Results No Known Results Summary Purpose eClinicalWorks Submission
--- OUTSIDE RECORDS SUMMARY | 2019-02-27 07:59 | XMS REPORT ---
Author Author Holland Huertas Organization [employer] Address Unknown Phone Unavailable Care Team Providers Care Research Associate Name Role Phone Holland Huertas CP Unavailable Allergies No Known Allergies Problems Problem Type Condition Code Onset Dates Condition Status Problem Pyoderma gangrenosum L88 Active Problem Hemangioma of skin and subcutaneous tissue D18.01 Active Problem Pyoderma gangrenosum 686.01 Active Problem Unspecified osteoarthritis, unspecified site M19.90 Active Medications No Known Medications Results No Known Results Summary Purpose eClinicalWorks Submission
--- OUTSIDE RECORDS SUMMARY | 2019-02-27 07:59 | XMS REPORT ---
Author Author Madeline Germain Organization [employer] Address Unknown Phone Unavailable Care Team Providers Care Metal Solderer Name Role Phone Madeline Germain CP Unavailable Allergies, Adverse Reactions, Alerts Substance Reaction Event Type N.K.D.A. Info Not Available Non Drug Allergy Problems Problem Type Condition Code Onset Dates Condition Status Assessment BMI less than 19,adult Z68.1 Active Assessment Pre-operative clearance Z01.818 Active Assessment Pyoderma gangrenosum L88 Active Assessment Hyperlipidemia, unspecified hyperlipidemia type [...] End Date Status Dosage Medihoney Wound/Burn Dressing [facility] [address] . Externally Once a Day October 05, 2015 Active as directed Lidocaine [facility] [address]-96 5 % Externally Once a day September 21, 2015 Active 1 patch to intact skin remove after 12 hours PredniSONE [facility] [address]-06 10 MG Orally Once a day Feb 21, 2016 Active 1 tablet Xeroform Petrolatum Dressing [facility] 8884-410588 1 Externally Once a Day October 05, 2015 Active as directed Glucophage [facility] [address]-90 500 MG Orally Twice a day October 12, 2016 Active 1 tablet with meals Ultram [facility] [address]-51 50 mg Orally every six to eight hours, PRN for Pain Active 1 tablet as needed Toprol XL [facility] [address]-73 200 MG Orally Once a day Active 1 tablet Omeprazole [facility] [address]-14 20 mg Orally Once a day Feb 21, 2016 Active 2 capsules Lipitor [facility] 06798145631 20 MG Orally Once a day Active 1 tablet Ascorbic Acid [facility] [address]-28 500 MG Orally Once a day Active 1 tablet Norvasc [facility] [address]-69 10 mg Orally once a day Feb 21, 2016 Active 1 tablet Zestril [facility] [address]-58 40 MG Orally Once a day Active 1 tablet Vital Signs Date/Time: Feb 09, 2017 BMI 17.43 Index Weight 108 lbs Height 66 in Respiratory Rate 16 /min Cardiac Monitoring Heart Rate 80 /min Blood Pressure Diastolic 80 mm Hg Blood Pressure Systolic 120 mm Hg Temperature 98.2 F Results No Known Results Summary Purpose eClinicalWorks Submission
--- OUTSIDE RECORDS SUMMARY | 2019-02-27 07:59 | XMS REPORT ---
Author Author Madeline Germain Organization [employer] Address Unknown Phone Unavailable Care Team Providers Care Hatchery Supervisor Name Role Phone Madeline Germain CP Unavailable Allergies, Adverse Reactions, Alerts Substance Reaction Event Type N.K.D.A. Info Not Available Non Drug Allergy Problems Problem Type Condition Code Onset Dates Condition Status Assessment Benign essential hypertension I10 Active Assessment Hyperlipidemia, unspecified hyperlipidemia type E78.5 Active Problem Unspecified osteoarthritis, unspecified site 715.90 Active Assessment Diabetes mellitus E11.9 Active Problem Unspecified open wound, left lower leg, initial encounter 891.0 Active Problem Cellulitis of left lower limb 682.6 Active Problem Essential hypertension, benign 401.1 Active Problem BMI less than 19,adult V85.0 Active Problem Chronic pain G89.29 Active Problem Osteoarthritis, unspecified osteoarthritis type, unspecified site M19.90 Active Problem Ulcer of left lower leg L97.929 Active Problem Hyperlipidemia, unspecified hyperlipidemia type E78.5 Active Problem Non-pressure chronic ulcer of left calf, 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 Active Problem No-show for appointment Z53.29 Active Problem Leukocytosis, unspecified type D72.829 Active Problem LDL-c greater than or equal to 100 mg/dl Z78.9 Active Problem Dehydration E86.0 Active Problem Gastroenteritis K52.9 Active Problem RA (rheumatoid arthritis) M06.9 Active Problem Pyoderma gangrenosa L88 Active Problem Frequent falls R29.6 Active Problem Pyoderma gangrenosum L88 Active Problem Cataract, unspecified cataract type, unspecified laterality H26.9 Active Problem Pre-operative clearance Z01.818 Active Problem Frequency of urination R35.0 Active Problem No history of influenza vaccination Z78.9 Active Assessment Frequent falls R29.6 Active Problem Blurry vision H53.8 Active Assessment RA (rheumatoid arthritis) M06.9 Active Problem Benign essential hypertension I10 Active Problem Diabetes mellitus E11.9 Active Assessment Frequency of urination R35.0 Active Problem BMI less than 19,adult Z68.1 Active Problem Screening for osteoporosis Z13.820 Active Problem Screening for breast cancer Z12.39 Active Problem Generalized weakness R53.1 Active Problem Bronchitis J40 Active Medications Medication Code System Code Instructions Start Date End Date Status Dosage Omeprazole [facility] 77464132714 20 mg Orally Once a day Feb 21, 2016 Active 2 capsules PredniSONE [facility] 51300402805 10 MG Orally Once a day Feb 21, 2016 Active 1 tablet Ultram [facility] 05856533069 50 mg Orally every six to eight hours, PRN for Pain Active 1 tablet as needed Lipitor [facility] 99826389844 20 mg Orally Once a day Active 1 tablet Toprol XL [facility] [address]-11 200 MG Orally Once a day Active 1 tablet K-Dur [facility] 40510256602 10meq Orally Daily Jul 10, 2017 Active 1 tablet Lipitor [facility] 82711301076 20 MG Orally Once a day Active 1 tablet Norvasc [facility] 59874634605 10 mg Orally once a day Feb 21, 2016 Active 1 tablet Glucophage [facility] 44468234534 500 MG Orally Twice a day Active 1 tablet with meals Cipro [facility] 75285942684 500 mg Orally Twice a day Jun 25, 2017 Active 1 tablet Zestril [facility] 50825420989 40 MG Orally Once a day Active 1 tablet Lasix [facility] 03498741660 20 mg Orally Once a day Jul 10, 2017 Active 1 tablet Vital Signs Date/Time: Jul 10, 2017 Blood Pressure Diastolic 80 mm Hg Blood Pressure Systolic 140 mm Hg Height 66 in Temperature 98.0 F Respiratory Rate 16 /min Cardiac Monitoring Heart Rate 80 /min Results No Known Results Summary Purpose eClinicalWorks Submission
--- OUTSIDE RECORDS SUMMARY | 2019-02-27 07:59 | XMS REPORT ---
Author Author Madeline Germain Organization [employer] Address Unknown Phone Unavailable Care Team Providers Care Boring Machine Operator Double End Name Role Phone Madeline Germain CP Unavailable Allergies No Known Allergies Problems Problem Type Condition Code Onset Dates Condition Status Assessment RA (rheumatoid arthritis) M06.9 Active Problem Unspecified osteoarthritis, unspecified site 715.90 Active Assessment Frequent falls R29.6 Active Problem Unspecified open wound, left lower [...] history of influenza vaccination Z78.9 Active Problem Blurry vision H53.8 Active Problem Benign essential hypertension I10 Active Problem Diabetes mellitus E11.9 Active Problem BMI less than 19,adult Z68.1 Active Problem Screening for osteoporosis Z13.820 Active Problem Screening for breast cancer Z12.39 Active Problem Generalized weakness R53.1 Active Problem Bronchitis J40 Active Medications No Known Medications Results No Known Results Summary Purpose eClinicalWorks Submission
--- OUTSIDE RECORDS SUMMARY | 2019-02-27 07:59 | XMS REPORT ---
Author Author Holland Huertas Organization [employer] Address Unknown Phone Unavailable Care Team Providers Care Gate Supervisor Name Role Phone Holland Huertas CP Unavailable [...]
--- OUTSIDE RECORDS SUMMARY | 2019-02-27 07:59 | XMS REPORT ---
Author Author Madeline Germain Organization [employer] Address Unknown Phone Unavailable Care Team Providers Care Research Dietitian Name Role Phone Madeline Germain Unavailable Encounters Encounter Location Date Refill Madeline Germain MD October 05, 2015 Referral - Eye Dr. Madeline Germain MD Feb 21, 2016 Mammogram/BMD Orders Madeline Germain MD May 30, 2016 Problems Problem Type Condition ICD-9 Code Onset Dates Condition Status Problem RA (rheumatoid arthritis) M06.9 Active Problem BMI less than 19,adult Z68.1 Active Problem Pyoderma gangrenosa L88 Active Problem Screening for osteoporosis Z13.820 Active Assessment Screening for osteoporosis Z13.820 Active Problem Benign essential hypertension I10 Active Problem Screening for breast cancer Z12.39 Active Problem Blurry vision H53.8 Active Problem Diabetes mellitus E11.9 Active Problem Generalized weakness R53.1 Active Problem Bronchitis J40 Active Problem Unspecified osteoarthritis, unspecified site 715.90 Active Problem Essential hypertension, benign 401.1 Active Assessment Screening for breast cancer Z12.39 Active Problem [...] 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 Active Social History Social History Element Qualifiers Date Reported Tobacco Use: . Are you a: never smoker May 30, 2016 Marital Status: . Single May 30, 2016 Caffeine intake? . Status: Yes, What type: Coffee, 2 Cups Per Day May 30, 2016 Do you drink alcohol? . Status: No May 30, 2016 Summary Purpose eClinicalWorks Submission
--- OUTSIDE RECORDS SUMMARY | 2019-02-27 07:59 | XMS REPORT ---
Author Author Holland Huertas Organization [employer] Address Unknown Phone Unavailable Care Team Providers Care Vault Maker Name Role Phone Holland Huertas CP Unavailable Allergies No Known Allergies Problems Problem Type Condition Code Onset Dates Condition Status Problem Pyoderma gangrenosum 686.01 Active Problem Pyoderma gangrenosum L88 Active Problem Laceration without foreign body of left forearm, initial encounter S51.812A Active Assessment Pyoderma gangrenosum L88 Active Problem Hemangioma of skin and subcutaneous tissue D18.01 Active Problem Unspecified osteoarthritis, unspecified site M19.90 Active Medications Medication Code System Code Instructions Start Date End Date Status Dosage Protopic [facility] [address]-38 0.1 % Externally Twice a day Active 1 application a thin layer to affected areas for atopic dermatitis Results No Known Results Summary Purpose eClinicalWorks Submission
--- OUTSIDE RECORDS SUMMARY | 2019-02-27 07:59 | XMS REPORT ---
Author Author Madeline Germain Organization [employer] Address Unknown Phone Unavailable Care Team Providers Care Cleat Thrower Name Role Phone Madeline Germain CP Unavailable Allergies, Adverse Reactions, Alerts Substance Reaction Event Type N.K.D.A. Info Not Available Non Drug Allergy Problems Problem Type Condition Code Onset Dates Condition Status Assessment Cataract, unspecified cataract type, unspecified laterality H26.9 Active Assessment Pyoderma gangrenosa L88 Active Assessment RA (rheumatoid arthritis) M06.9 Active Assessment Hyperlipidemia, unspecified hyperlipidemia type E78.5 Active Assessment Diabetes mellitus E11.9 Active Assessment No history of influenza vaccination Z78.9 Active Problem Unspecified osteoarthritis, unspecified site 715.90 Active Problem Unspecified open wound, left lower leg, initial encounter 891.0 Active Problem Bronchitis J40 Active Problem Cellulitis of left lower limb 682.6 Active Problem Generalized weakness R53.1 Active Problem Essential hypertension, benign 401.1 Active Problem Screening for osteoporosis Z13.820 Active Problem Osteoarthritis, unspecified osteoarthritis type, unspecified site M19.90 Active Problem Screening for breast cancer Z12.39 Active Problem Cataract, unspecified cataract type, unspecified laterality H26.9 Active Problem Pre-operative clearance Z01.818 Active Problem Ulcer of left lower leg L97.929 Active Problem Chronic pain G89.29 Active Problem No history of influenza vaccination Z78.9 Active Problem BMI less than 19,adult V85.0 Active Problem No-show for appointment Z53.29 Active Problem Hyperlipidemia, unspecified hyperlipidemia type E78.5 Active Problem Leukocytosis, unspecified type D72.829 Active Problem LDL-c greater than or equal to 100 mg/dl Z78.9 Active Problem Pyoderma gangrenosa L88 Active Problem RA (rheumatoid arthritis) M06.9 Active Problem Non-pressure chronic ulcer of left calf, 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 64774526882 40 MG Orally Once a day Active 1 tablet Omeprazole [facility] 79401729505 20 mg Orally Once a day Feb 21, 2016 Active 2 capsules Medihoney Wound/Burn Dressing [facility] 17272791651 . Externally Once a Day October 05, 2015 Inactive as directed PredniSONE [facility] 14372646020 10 MG Orally Once a day Feb 21, 2016 Active 1 tablet Toprol XL [facility] [address]-28 200 MG Orally Once a day Active 1 tablet Glucophage [facility] 59621967070 500 MG Orally Twice a day Active 1 tablet with meals Lipitor [facility] 60208964445 20 mg Orally Once a day Active 1 tablet Xeroform Petrolatum Dressing [facility] 20058173788 1 Externally Once a Day October 05, 2015 Inactive as directed Ascorbic Acid [facility] [address]-24 500 MG Orally Once a day Inactive 1 tablet Lidocaine [facility] 45047673047 5 % Externally Once a day September 21, 2015 Inactive 1 patch to intact skin remove after 12 hours Norvasc [facility] 58684207116 10 mg Orally once a day Feb 21, 2016 Active 1 tablet Ultram [facility] 48722174596 50 mg Orally every six to eight hours, PRN for Pain Active 1 tablet as needed Lipitor [facility] 57056551672 20 MG Orally Once a day Active 1 tablet Vital Signs Date/Time: Jun 14, 2017 Blood Pressure Diastolic 80 mm Hg Blood Pressure Systolic 140 mm Hg Height 66 in Temperature 98.2 F Respiratory Rate 16 /min Cardiac Monitoring Heart Rate 80 /min Results No Known Results Summary Purpose eClinicalWorks Submission
--- OUTSIDE RECORDS SUMMARY | 2019-02-27 08:03 | XMS REPORT | Summary of Care ---
Author Author [facility] Organization [facility] Address Unknown Phone Unavailable Care Team Providers Care Paste Up Artist Name Role Phone Kelley Brody MD PCP Martín Mendoza MD Unavailable Reason for Visit * Reason Comments Disease Management * Consult, Test & Treat (Routine) Referred By Contact Referred To Contact Status Reason Specialty Diagnoses / Procedures Referral, Self Kourtney Santos MD [address] [place] [id number] Authorization Infectious Diagnoses Not Needed Diseases 2 month fu 2 month fu// OB ok'd per Simi P rocedures ESTABLISHED OFFICE VISIT Encounter Details Care Team Description [place] [address] [place] [id number] Disease Management 01/13/2019 Office Visit [facility] Infectious Disease [address] [place] [address]. 8[address]; [address] [place] [phone] Allergies No Known Allergiesdocumented as of this encounter (statuses as of 01/13/2019) Medications End Date Status Medication Sig Dispensed Refills Start Date Active RESTASIS 0.05 % ADMINISTER 1 3 ophthalmic emulsion DROP BOTH 8 EYES TWICE A DAY Active lisinopril (PRINIVIL, TAKE 1 TABLET ZESTRIL) 40 MG tablet BY MOUTH 8 EVERY DAY Active omeprazole (PRILOSEC) 40 TAKE ONE 5 MG capsule CAPSULE BY 8 MOUTH DAILY Active predniSONE (DELTASONE) 10 TAKE 1 TABLET 1 MG tablet TWICE A DAY 8 WITH MEALS Active LYRICA 75 MG capsule TAKE ONE 3 CAPSULE BY 8 MOUTH 3 TIMES A DAY Active metformin (GLUCOPHAGE-XR) TAKE 2 TABS 5 500 MG XR tablet ORAL 8 DAILY,INSTR:W ITH EVENING MEAL Active Vitamin D, TAKE 1 0 Ergocalciferol, [address]492 CAPSULE BY 8 units CAPS MOUTH EVERY WEEK FOR 8 WEEKS, THEN TAKE OTC VITAMIN D/ CALCIUM EVERY DAY Active ACCU-CHEK KELLEY PLUS TEST BLOOD 0 SUGAR EVERY 8 DAY Active ACCU-CHEK SOFTCLIX TEST BLOOD 0 LANCETS MISC SUGAR EVERY 8 DAY 07/11/2019 Active folic acid (FOLVITE) 1 MG Take 1 mg by 0 tablet mouth. 9 07/11/2019 Active senna-docusate Take 1 Tab by 0 (PERICOLACE) 8.6-50 MG mouth. 9 per tablet Active tramadol (ULTRAM) 50 MG 0 tablet 9 07/11/2019 Active warfarin (COUMADIN) 2.5 Take 5 mg by 0 MG tablet mouth. 9 Active duloxetine (CYMBALTA) 30 0 MG capsule 9 Active BD PEN NEEDLE RIKY U/F See Admin 32G X 4 MM [facility] Instructions. 9 Active betamethasone 0 dipropionate (DIPROLENE) 9 0.05 % ointment Active duloxetine (CYMBALTA) 60 TAKE 1 5 MG capsule CAPSULE BY 9 MOUTH EVERY DAY Active metoprolol (LOPRESSOR) 50 TAKE 1 TABLET 5 MG tablet BY MOUTH 9 TWICE A DAY Active mupirocin (BACTROBAN) 2 % 0 ointment 9 Active Probiotic Product (ALIGN) TAKE 1 1 CAPS CAPSULE BY 9 MOUTH EVERY DAY 01/13/2019 Discontinued thiamine 100 MG tablet Take 100 mg 0 by mouth. 9 01/13/2019 Discontinued furosemide (LASIX) 20 MG TAKE 1 TABLET 0 tablet BY MOUTH 9 EVERY DAY documented as of this encounter (statuses as of 01/13/2019) Active Problems Problem Noted Date Cellulitis of right elbow 09/06/2018 Inflammation of bursa 09/06/2018 Acute on chronic systolic (congestive) heart failure 07/13/2018 NICM (nonischemic cardiomyopathy) 07/13/2018 Essential hypertension 07/11/2018 LV (left ventricular) mural thrombus 07/11/2018 Type 2 diabetes mellitus with complication, without long-term current use 07/11/2018 of insulin Severe protein-calorie malnutrition 07/02/2018 Acute metabolic encephalopathy 06/27/2018 Chronic osteomyelitis of right humerus 06/27/2018 MRSA bacteremia 06/27/2018 Severe sepsis due to methicillin resistant Staphylococcus aureus (MRSA) 06/27/2018 with acute organ dysfunction Staphylococcal arthritis of right elbow 06/27/2018 Other specified sepsis 06/22/2018 Pyoderma gangrenosum 05/20/2018 Type 2 diabetes mellitus with diabetic neuropathic arthropathy, without 05/20/2018 long-term current use of insulin Diabetic peripheral neuropathy 05/20/2018 Corticosteroid dependence 05/20/2018 History of positive PPD 05/20/2018 documented as of this encounter (statuses as of 01/13/2019) Social History Date Tobacco Use Types Packs/Day Years Used Former Smoker Smokeless Tobacco: Never Used Drinks/Week oz/Week Comments Alcohol Use quit 13 years ago Not Currently Sex Assigned at Date Recorded Not on file Industry Job Start Date Occupation Not on file Not on file Not on file Travel End Travel History Travel Start No recent travel history available. documented as of this encounter Last Filed Vital Signs Reading Time Taken Comments Vital Sign 139/80 01/13/2019 10:01 AM CDT Blood Pressure 78 01/13/2019 10:01 AM CDT Pulse 36.6 C (97.9 F) 01/13/2019 10:01 AM CDT Temperature 18 01/13/2019 10:01 AM CDT Respiratory Rate 97% 01/13/2019 10:01 AM CDT Oxygen Saturation - - Inhaled Oxygen Concentration 57.6 kg (127 lb) 01/13/2019 10:01 AM CDT Weight - - Height 23.23 12/19/2018 2:57 PM CDT Body Mass Index documented in this encounter Patient Instructions * Patient Instructions* Kourtney Santos MD - 01/13/2019 9:30 AM CDT Thank you choosing the Infectious Diseases clinic at [facility]. Please let us know what we can do better by providing comments on the survey you will receive. We value your feedback! Here are some helpful general instructions: 1. If you have not already done so, we encourage you to sign up for [employer] as i t is a very efficient way to contact the Infectious Diseases team for non-emerge nt questions / requests. 2. Labs and X-rays can be performed / scheduled in our clinic on the 8th floor. Results will be provided to you either through [employer] or a personal communicati on (letter or phone call) from the Infectious Diseases team. 3. For medication refills, please contact your pharmacy one week before you run out of medications. 4. Please go to the service desk director on your way out today to schedule your next appoi ntment in prn 5. If you have questions after your visit, please contact us in one of the follo wing ways: For non-emergent questions / requests: PeeP Mobile Digital message For appointments: For clinical matters: ; you will be asked to leave a message an d our team will call you back as soon as possible, and definitely within 1 busin ess day. For emergent clinical issues: please call 911 or go to the emergency room. To send in clinical records: please use the fax number at . Please see below for specific information related to your diagnosis or symptoms. We appreciate the opportunity to take part in your care. Continue off abx Return as needed! Kourtney Santos MD [employer] [facility] Infectious Diseases (O)[phone] (F)[phone] 01/13/2019 10:43 AM documented in this encounter Progress Notes * Kourtney Santos MD - 01/13/2019 9:30 AM CDT Kourtney Santos MD Section of Infectious Diseases [address] [facility] [address] [place] [id number] email: [email or web address] Date: 01/13/19 Patient Name: Laly Nunes Patient Date of : 1955 Chief Complaint: Chief Complaint Patient presents with Disease Management RFC: R elbow chronic osteomyelitis REQUESTED BY: Jorge Hopkins* Subjective History of Present Illness: 63 y.o. female with history ofnon-ischemic CMP, h/o LV thrombus on warfarin, A fib, pyoderma gangrenosum of the legs (dx 2014) with h/o chronic immunosuppress ion, LTBI s/p INH x 9 months, now presenting to ID clinic for post hospital foll ow up of R distal humerus osteomyelitis / septic arthritis. Patient had compartment syndrome of the RUE in the requiring surgical inte rvention. In Jun 2018, she was admitted to [facility] for R elbow septic arthritis and distal h umerus OM complicated by MRSA bacteremia - she underwent I&D 06/25/18 and was treated with IV vancomycin for 6 weeks (end date 08/08/18). However, she developed recurrent swelling and erythema and discharge and was danielle dmitted in September 2018, s/p debridement by orthopedics 09/06/18 - intra-operative c ultures grew CoNS (sensitive to linezolid, vancomycin, rifampin, doxycycline). S urgical pathology confirmed chronic OM. The patient was discharged on oral doxycycline plus rifampin to complete 6 weeks of antibiotics (through 10/17/18 - 6 weeks from date of procedure). She saw Dr. Welch (orthopedics) in follow up and the current plan it to monito r ESR / CRP following completion of antibotics; if chronic infection persists, a mputation is under consideration. If infection is felt to be cured, orthopedics will consider fusion surgery. Initially seen in ID clinic 10/07/2018; we discussed concern regarding potential f or cure given complex history include immune suppression. Remains on prednisone 10 mg daily. Patient STOPPED doxycycline and rifampin on 11/06/2018 and has remained clinically stable off abx. Last seen in ID clinic 11/18/18 - was doing well in RUE but was working with Dr. Mendoza - wound care related to LLE prado ulceration. Also sees PCP, Dr. Mary Grace dickeyularly regarding other medical problems. INTERIM HX -saw Dr. Welch 12-19-18 -CRP 1.1; ESR 27 on 12/19/18 -R elbow with no pain and no drainage. -last imaging 12/19/18 of elbow - Dr. Welch' note indicates interpretation as f ollows: 2 views of the R elbow show absent joint, but good alignment and some donna ne formation along the anterior humerus. -overall clinically stable but still dealing with LLE prado wound - (Pyoderma ro grenosum). Dr. Mendoza is working on getting approval for a mesh overlay to spee d healing. In the meantime, she is dressing with an anti-itch cream and [facility] every other day to help with dressing changes. -ROS no fever / chills; reports she deeloped a rash on the RLE related to a medi cation but this is now improving; previously with edema - PCP is concerned for p ossible subacute heart failure - seeing veterinary manager next week. Also being evalu ated by hematology for anemia per PCP. -continues on prednisone 10 mg daily CRP levels: CRP levels 06/23 > 32 07/02 3.48 08/08 (Logan) 1.7 09/06 8.08 09/07 12.01 10/07 4.6 11/21 2.7 12/19 1.1 ESR 27 on 12/19/18 Current Medications: Current Outpatient Medications: ACCU-CHEK KELLEY PLUS, TEST BLOOD SUGAR EVERY DAY, Disp: , Rfl: 0 ACCU-CHEK SOFTCLIX LANCETS MISC, TEST BLOOD SUGAR EVERY DAY, Disp: , Rfl: 0 BD PEN NEEDLE RIKY U/F 32G X 4 MM MISC, See Admin Instructions., Disp: , Rf l: 5 betamethasone dipropionate (DIPROLENE) 0.05 % ointment, , Disp: , Rfl: duloxetine (CYMBALTA) 30 MG capsule, , Disp: , Rfl: duloxetine (CYMBALTA) 60 MG capsule, TAKE 1 CAPSULE BY MOUTH EVERY DAY, Dis p: , Rfl: 5 folic acid (FOLVITE) 1 MG tablet, Take 1 mg by mouth., Disp: , Rfl: lisinopril (PRINIVIL, ZESTRIL) 40 MG tablet, TAKE 1 TABLET BY MOUTH EVERY D AY, Disp: , Rfl: 5 LYRICA 75 MG capsule, TAKE ONE CAPSULE BY MOUTH 3 TIMES A DAY, Disp: , Rfl: 3 metformin (GLUCOPHAGE-XR) 500 MG XR tablet, TAKE 2 TABS ORAL DAILY,INSTR:WI EVENING MEAL, Disp: , Rfl: 5 metoprolol (LOPRESSOR) 50 MG tablet, TAKE 1 TABLET BY MOUTH TWICE A DAY, Di sp: , Rfl: 5 mupirocin (BACTROBAN) 2 % ointment, , Disp: , Rfl: omeprazole (PRILOSEC) 40 MG capsule, TAKE ONE CAPSULE BY MOUTH DAILY, Disp: , Rfl: 5 predniSONE (DELTASONE) 10 MG tablet, TAKE 1 TABLET TWICE A DAY WITH MEALS, Disp: , Rfl: 1 Probiotic Product (ALIGN) CAPS, TAKE 1 CAPSULE BY MOUTH EVERY DAY, Disp: , Rfl: 1 RESTASIS 0.05 % ophthalmic emulsion, ADMINISTER 1 DROP BOTH EYES TWICE A DA Y, Disp: , Rfl: 3 senna-docusate (PERICOLACE) 8.6-50 MG per tablet, Take 1 Tab by mouth., Dis p: , Rfl: tramadol (ULTRAM) 50 MG tablet, , Disp: , Rfl: Vitamin D, Ergocalciferol, 90983 units CAPS, TAKE 1 CAPSULE BY MOUTH EVERY WEEK FOR 8 WEEKS, THEN TAKE OTC VITAMIN D/ CALCIUM EVERY DAY, Disp: , Rfl: 0 warfarin (COUMADIN) 2.5 MG tablet, Take 5 mg by mouth., Disp: , Rfl: Allergies: No Known Allergies Past Medical History: Past Medical History: Diagnosis Date Pancreatic cyst Past Surgical History: Past Surgical History: Procedure Laterality Date HX ARM SURGERY Right Social History: Social History Tobacco Use Smoking status: Former Smoker Smokeless tobacco: Never Used Substance Use Topics Alcohol use: Not Currently Comment: quit 13 years ago Family History: family history is not on file. Review of Systems: Per HPI; o/w 10 pt ROS neg Examination: BP 139/80 | Pulse 78 | Temp 97.9 F (36.6 C) (Oral) | Resp 18 | Wt 127 lb (57.6 kg) | SpO2 97% | BMI 23.23 kg/m Physical Exam General calm, in no acute distress RUE - no open sores, no tenderness along elbow joint despite chronic deformities Images reviewed of open sore L prado Currently dressing in place with oozing vis ible Data: Laboratory Testing: Reviewed in Epic 09/06/18 surgical cx - CoNS Susceptibility Coagulase negative Staphylococcus Not Specified Clindamycin >=4 R Erythromycin >=8 R Linezolid 1 S Oxacillin >=4 R Rifampin <=0.5 S Tetracycline 2 S Trimethoprim + Sulfamethoxazole 160 R Vancomycin 1 S Blood cultures 06/26/18: Organism Antibiotic Method Susceptibility Methicillin resistant Staphylococcus aureus Clindamycin 0.25: Susceptible Daptomycin 0.25: Susceptible Erythromycin >=8: Resistant Linezolid 2: Susceptible Oxacillin >=4: Resistant Rifampin <=0.5: Susceptible Tetracycline >=16: Resistant Trimethoprim + Sulfamethoxazole <=10: Susceptible Vancomycin 1: Susceptible Radiology Studies: Reviewed in [facility] Impression: This is 63 y.o. female with multiple medical comorbidities, with remote h/o surg isaías to RUE for compartment syndrome, and more recently with chronic R elbow sept ic arthritis / distal humerus ostoemyelitis, requiring hospitalization and I&D in June 2018 (c/b MRSA bacteremia), s/p IV vancomycin x 6 weeks, and most r ecently s/p I&D 09/06/[address] with [address] path showing chronic OM and with cultures growing CoNS. Discharged on oral doxycycline plus rifampin, but has been OFF antibiotics since 11/06/18 and has remained clinically stable in the RUE. No e/o open sores / infection. Also following with orthopedics, Dr. Welch. ICD-10-CM 1. Chronic osteomyelitis of right humerus M86.621 2. Pyoderma gangrenosum L88 Plan: Patient continues to do well OFF antibiotics Will defer management to orthopedics regarding plan for additional surgeries Defer to wound care team re: pyoderma gangrenosum although no need for abx / no e/o superinfection at this time Last CRP downtrending on 12/19/18 Can follow up with ID on prn basis Will send notes to other members of care team COUNSELING TIME >50% of 15 min visit The plan was discussed with the patient and caregiver, Jahaira, who verbalized understanding. Kourtney Santos MD [employer] [facility] Infectious Diseases (O)[phone] (F)[phone] 01/13/2019 10:41 AM documented in this encounter Plan of Treatment Care Team Description Date Type Specialty Jorge Welch MD [address] [facility] [address] [place] [address] [phone] 01/30/2019 Office Visit Orthopedic Surgery Health Maintenance Due Date Last Done Comments COLON CANCER SCREENIN1955 COLONOSCOPY MAMMOGRAM ANNUAL 1955 MEDICARE AWV 1955 TETANUS SHOT (ADULT) 1972 ANNUAL DIABETIC FOOT EXAM 1975 ANNUAL DIABETIC 1975 RETINOPATHY SCREENING HIV SCREENING 1975 CERVICAL CANCER SCREENING 1978 3 YEAR FOLLOW UP FLU VACCINE > 6 MONTHS 01/02/2019 HEPATITIS C SCREENING Completed 06/26/2018, 05/20/2018 documented as of this encounter Results Not on filedocumented in this encounter Visit Diagnoses Diagnosis Chronic osteomyelitis of right humerus - Primary Pyoderma gangrenosum documented in this encounter Insurance Type Payer Benefit Subscriber ID Effective Phone Address Plan / Dates Group Medicare [employer] CHO[employer]/JHONATHAN xxxxxxxxx 2018-P [address] [place] [id number] PPO/[place] [address] documented as of this encounter"
--- OUTSIDE RECORDS SUMMARY | 2019-02-27 08:03 | XMS REPORT | Summary of Care ---
Author Author DREW Pettit, JENARO Organization Unknown Address [facility] Phone Unavailable Care Team Providers Care Health Services Rn Name Role Phone TONY Pettit, BRIGETTE Unavailable Unavailable Rome Pettit, Yolanda Unavailable Unavailable DREW Pettit, JENARO Unavailable Unavailable JEAN CLAUDE Pettit, PROSPER Unavailable Unavailable CAROLEE MOHR, TOMER Díaz Unavailable Unavailable Luis Carlos MOHR, Barry Unavailable Unavailable KARON MOHR, NICHO BOSCH) Unavailable Unavailable Drew MOHR, Jenaro Unavailable Unavailable Unavailable Unavailable Functional Status Name Dates Details Functional status health issues are not documented Status: Name Dates Details Cognitive status health issues are not documented Status: Problems Name Dates Details Former smoker (V15.82, Z87.891) Status: Active Chronic cough (786.2, R05) Status: Active Weight loss, unintentional (783.21, R63.4) Status: Active History of renal stone (V13.01, Z87.442) Status: Active Myopathy (359.9, G72.9) Status: Active Cachexia (799.4, R64) Status: Active Encounter for long-term current use of high risk medication (V58.69, Z79.899) Status: Active Pyoderma gangrenosum (686.01, L88) Status: Active Neuropathy (355.9, G62.9) Status: Active Malignancy (199.1, C80.1) Status: Active Anxiety (300.00, F41.9) Status: Active 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 * Start : 12-Oct-2015 Active Lyrica 75 MG Oral Capsule TAKE 1 CAPSULE 3 TIMES DAILY. * Quantity: 1 Refills: 1 Yolanda Peter M.D. Active 90 Capsule Bottle Metoprolol Succinate ER 200 MG Oral Tablet Extended Release 24 Hour * Refills: 0 Active Doxycycline Hyclate 100 MG Oral Capsule * Refills: 0 Active Omeprazole 40 MG Oral Capsule Delayed Release * Refills: 0 Active PredniSONE 10 MG Oral Tablet * Refills: 0 Active Cyclobenzaprine HCl - 10 MG Oral Tablet * Refills: 0 Active Ibuprofen 800 MG Oral Tablet * Refills: 0 Active CycloSPORINE 100 MG Oral Capsule Take 1 tablets po bid * Quantity: 60 Refills: 2 JENARO SOLIMAN M.D. * Start : 27-Mar-2018 Active Vitamin D (Ergocalciferol) 90169 UNIT Oral Capsule TAKE 1 CAPSULE BY MOUTH EVERY WEEK FOR 8 WEEKS, THEN TAKE OTC VITAMIN D/ CALCIUM EVERY DAY * Quantity: 8 Refills: 0 BRIGETTE JIMENEZ M.D. * Start : 29-Mar-2018 Active DiazePAM 5 MG Oral Tablet TAKE 1 TABLET 30 MINUTES PRIOR TO PROCEDURE. * Quantity: 2 Refills: 0 BRIGETTE JIMENEZ M.D. * Start : 10-Apr-2018 Active Allergies and Adverse Reactions Name Dates Details No Known Drug Allergies (Allergy) Status: Active Past Medical History Name Dates Details History of chronic pain (V13.89, Z87.898) Status: Resolved History of Hypertension, essential, benign (401.1, I10) Status: Resolved History of On prednisone therapy (V58.65, Z79.52) Status: Resolved History of Osteoarthritis, chronic (715.90, M19.90) Status: Resolved History of Traumatic compartment syndrome of right upper extremity, sequela (908.6, T79.A11S) Status: Resolved Procedures Procedure Dates Details Physical Therapy Date: 02-Apr-[address] Tumor imaging-whole body 31955 Date: 02-Apr-2018 History of Arm surgery Completed History of Anterior cruciate ligament repair Completed Immunization Name Dates Details Immunizations not documented Family History Name Dates Details Family history of Alzheimer's disease, familial (331.0, G30.8) Status: Active Name Dates Details Family history of Parkinson's disease, Lewy body (332.0, G31.83) Status: Active Social History Name Dates Details - Status: Name Dates Details Former smoker Former smoker Vital Signs Date Test Result Details No Known Vitals to report Results Date Description Value Details [id number] Tumor imaging-whole body [address] Tumor imaging-whole body SEE NOTES Comments: F 18 FDG PET/CT SKULL BASE TO MID THIGHDATE: 04/26/2018 1:03 PM CSTCLINICAL INDICATION: C80.1 Malignant (primary) neoplasm, unspecified -Recent blood sugar level: 69 mg/dl Total body radiation dose: CTDI: 9.2 mGyDLP: 1164 mGy-cmTECHNIQUE: Following the intravenous administration of 13.5 mCi of F-18 FDG,tomographic images were obtained from the skull base to the proximal thighs,after an interval of [address] was performed for purposesof attenuation correction and anatomical mapping.COMPARISON: Chest CT dated 01/17/2018FINDINGS:HEAD AND NECK:There are areas of white matter hypodensity bilaterally.No associated hypermetabolic activity is seen, and there may be mild photopeniaof the overlying cortex.There is increased activity in the region of the soft palate on the left with amax SUV of 3.6. However, this is in an area of misregistration due to patientmotion and may represent normal physiologic activity.There is no hypermetabolic lymphadenopathy.CHEST:There is no abnormal activity within the esophagus.There are no hypermetabolic pulmonary nodules.There is no hypermetabolic lymphadenopathy.ABDOMEN AND PELVIS: There is nonspecific activity throughout the bowel.The organs demonstrate physiologic FDG activity.There is no hypermetabolic lymphadenopathy.MUSCULOSKELETAL: The visualized portion of the skeleton and musculature demonstrate physiologicFDG uptake.IMPRESSION:1. Multiple areas of white matter hypodensity bilaterally are of uncertainclinical significance and not well characterized on this study. No associatedhypermetabolic activity is seen, but further evaluation with brain MR isrecommended.2. Possible asymmetric activity in the soft palate on the left versusmisregistration artifact.3. Otherwise no hypermetabolic disease.--Read by: Hope Gilmore MDictated Date/time: 04/26/18 14:15Electronically Signed by: Hope Gilmore 04/26/1814:46FINAL REPORT Plan of Care Name Dates Details Planned Observations Planned Goals not documented Planned Encounters Appointment; CHAPARRITA ROLDAN NP On: 02-May-2018 10:30 Appointment; JENARO SOLIMAN M.D. On: 10-Jun-2018 9:20 Interventions Provided Plan* 1. Muscle wasting/cachexia w/ neurologic symptoms: * -had elevated CEA and CA19-9 but repeat in GI showed normal levels in the [facility] system. 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 Pyoderma gangrenosum * - will increase cellcept to 1g BID, cont prednisone 10 mg BID, and doxycycline 100 mg PO daily, and Dr. Davis in wound care. * - never started cyclosporine because of interaction with omeprazole so the pharmacist didn't dispense it * RTC 6 weeks. Instructions Name Dates Details Instructions not documented Encounters Appointment; JENARO SOLIMAN M.D. Encounter Diagnosis: Problem not documented On: 23-May-2016 10:30 Appointment; JENARO SOLIMAN M.D. Encounter Diagnosis: Problem not documented On: 25-Dec-2017 9:40 Appointment; DONITA LOUISE M.D. Encounter Diagnosis: Problem not documented On: 04-Jan-2018 14:30 Appointment; BRIGETTE JIMENEZ M.D. Encounter Diagnosis: Problem not documented On: 21-Feb-2018 9:00 Appointment; JENARO SOLIMAN M.D. Encounter Diagnosis: Problem not documented On: 25-Feb-2018 9:30 Appointment; CHAPARRITA ROLDAN NP Encounter Diagnosis: Problem not documented On: 28-Feb-2018 9:30 Appointment; RAMILA RAMOS M.D. Encounter Diagnosis: Problem not documented On: 05-Mar-2018 14:30 Appointment; CHAPARRITA ROLDAN NP Encounter Diagnosis: Problem not documented On: 21-Mar-2018 9:30 Appointment; BRIGETTE JIMENEZ M.D. Encounter Diagnosis: Problem not documented On: 26-Mar-2018 13:00 Appointment; JENARO SOLIMAN M.D. Encounter Diagnosis: Problem not documented On: 27-Mar-2018 9:15 Appointment; BRIGETTE JIMENEZ M.D. Encounter Diagnosis: Problem not documented On: 02-Apr-2018 14:30 Appointment; JENARO SOLIMAN M.D. Encounter Diagnosis: Problem not documented On: 29-Apr-2018 9:20
--- OUTSIDE RECORDS SUMMARY | 2019-02-27 08:03 | XMS REPORT | Summary of Care ---
Author Author [facility] Organization [facility] Address Unknown Phone Unavailable Care Team Providers Care Seed Packer Name Role Phone Kelley Brody MD PCP Martín Mendoza MD Unavailable Reason for Visit * Reason Comments Follow Up * Consult, Test & Treat (Routine) Referred By Contact Referred To Contact Status Reason Specialty Diagnoses / Procedures Jorge Welch MD [address] [address] Jorge Welch MD [address] [address] Authorization Orthopedic Procedures Not Needed Surgery FOLLOW UP OFFICE VISIT 10 Encounter Details Care Team Description Date Type Department Jorge Welch MD [address] [address] [phone] Follow Up 01/30/2019 Office Visit [facility] Orthopedic Surgery [address] [place] [address] [address], [place] [phone] Allergies No Known Allergiesdocumented as of this encounter (statuses as of 01/30/2019) Medications End Date Status Medication Sig Dispensed Refills Start Date Active RESTASIS 0.05 % ADMINISTER 1 3 ophthalmic emulsion DROP BOTH 8 EYES TWICE A DAY Active lisinopril (PRINIVIL, TAKE 1 TABLET ZESTRIL) 40 MG tablet BY MOUTH 8 EVERY DAY Active omeprazole (PRILOSEC) 40 TAKE ONE MG capsule CAPSULE BY 8 MOUTH DAILY Active predniSONE (DELTASONE) 10 TAKE 1 TABLET 1 MG tablet TWICE A DAY 8 WITH MEALS Active LYRICA 75 MG capsule TAKE ONE 3 CAPSULE BY 8 MOUTH 3 TIMES A DAY Active metformin (GLUCOPHAGE-XR) TAKE 2 TABS 5 500 MG XR tablet ORAL 8 DAILY,INSTR:W ITH EVENING MEAL Active Vitamin D, TAKE 1 0 Ergocalciferol, [address]222 CAPSULE BY 8 units CAPS MOUTH EVERY [...] by 0 MG tablet mouth. 9 Active BD PEN NEEDLE RIKY U/F See Admin [address] [facility] Instructions. 9 Active betamethasone 0 dipropionate (DIPROLENE) 9 0.05 % ointment Active duloxetine (CYMBALTA) 60 TAKE 1 5 MG capsule CAPSULE BY 9 MOUTH EVERY DAY Active mupirocin (BACTROBAN) 2 % 0 ointment 9 Active Probiotic Product (ALIGN) TAKE 1 1 CAPS CAPSULE BY 9 MOUTH EVERY DAY Active SANTYL 250 UNIT/GM 0 ointment 9 Active cyclobenzaprine TAKE 1 TABLET 5 (FLEXERIL) 10 MG tablet BY MOUTH 9 THREE TIMES A DAY Active lidocaine-prilocaine APPLY SMALL 0 (EMLA) 2.5-2.5 % cream AMOUNT TO 9 AFFECTED AREA DAILY FOR 30 DAYS 01/30/2019 Discontinued duloxetine (CYMBALTA) 30 0 06/17/201 MG capsule 9 01/30/2019 Discontinued metoprolol (LOPRESSOR) 50 TAKE 1 TABLET 5 11/26/201 MG tablet BY MOUTH 9 TWICE A DAY documented as of this encounter (statuses as of 01/30/2019) Active Problems Problem Noted Date Cellulitis of [...] as of this encounter (statuses as of 01/30/2019) Social History Date Tobacco Use Types Packs/Day [...] Signs Reading Time Taken Comments Vital Sign - - Blood Pressure - - Pulse - - Temperature - - Respiratory Rate - - Oxygen Saturation - - Inhaled Oxygen Concentration 57.6 kg (127 lb) 01/30/2019 3:02 PM CDT Weight 157.5 cm (5' 2") 01/30/2019 3:02 PM CDT Height 23.23 01/30/2019 3:02 PM CDT Body Mass Index documented in this encounter Progress Notes * Jorge Welch MD - 01/30/2019 2:30 PM CDT [facility] Orthopedic Surgery ESTABLISHED Patient Clinic Visit ASSESSMENT: 1. Chronic osteomyelitis of right humerus 2. Staphylococcal arthritis of right elbow PLAN: Treatment Plan: Patient has resolved most pain and is currently functioning well . She has no infectious signs or symptoms off ABX and CRP nearly normal. She d oes not want to proceed with elbow fusion at this time and is functioning well w ith what she has. She may return PRN if things change. Medications: None Weight Bearing Status: WBAT PT / OT: None Follow-Up: PRN Radiographs at Follow-Up: N/A CHIEF COMPLAINT: Chief Complaint Patient presents with Follow Up HISTORY OF PRESENT ILLNESS: 63 yo F with distal humerus recurrent chronic osteomyelitis s/p debridement x 2. Last debridement 4+ months ago. She took ABX x 6 weeks and has not had return of infectious signs or symptoms since stopping. Last CRP near normal. Sees Dr. Santos from [place] who thinks her infection is resolved. Since the last visit, her p ain has reduced to minimal and she is functioning very well. ALLERGIES: No Known Allergies CURRENT MEDICATIONS: Current Outpatient Medications: ACCU-CHEK KELLEY PLUS, TEST BLOOD SUGAR EVERY DAY, Disp: , Rfl: 0 ACCU-CHEK SOFTCLIX LANCETS MISC, TEST BLOOD SUGAR EVERY DAY, Disp: , Rfl: 0 BD PEN NEEDLE RIKY U/F 32G X 4 MM MISC, See Admin Instructions., Disp: , Rf l: 5 betamethasone dipropionate (DIPROLENE) 0.05 % ointment, , Disp: , Rfl: cyclobenzaprine (FLEXERIL) 10 MG tablet, TAKE 1 TABLET BY MOUTH THREE TIMES A DAY, Disp: , Rfl: 5 duloxetine (CYMBALTA) 60 MG capsule, TAKE 1 CAPSULE BY MOUTH EVERY DAY, Dis p: , Rfl: 5 folic acid (FOLVITE) 1 MG tablet, Take 1 mg by mouth., Disp: , Rfl: lidocaine-prilocaine (EMLA) 2.5-2.5 % cream, APPLY SMALL AMOUNT TO AFFECTED AREA DAILY FOR 30 DAYS, Disp: , Rfl: 0 lisinopril (PRINIVIL, ZESTRIL) 40 MG tablet, TAKE 1 TABLET BY MOUTH EVERY D AY, Disp: , Rfl: 5 LYRICA 75 MG capsule, TAKE ONE CAPSULE BY MOUTH 3 TIMES A DAY, Disp: , Rfl: 3 metformin (GLUCOPHAGE-XR) 500 MG XR tablet, TAKE 2 TABS ORAL DAILY,INSTR:WI TH EVENING MEAL, Disp: , Rfl: 5 mupirocin (BACTROBAN) 2 % [...] A DA Y, Disp: , Rfl: 3 SANTYL 250 UNIT/GM ointment, , Disp: , Rfl: senna-docusate (PERICOLACE) 8.6-50 MG per tablet, Take 1 Tab by mouth., Dis p: , Rfl: tramadol (ULTRAM) 50 MG tablet, , Disp: , Rfl: Vitamin D, Ergocalciferol, 85547 units CAPS, TAKE 1 CAPSULE BY MOUTH EVERY WEEK FOR 8 WEEKS, THEN TAKE OTC VITAMIN D/ CALCIUM EVERY DAY, Disp: , Rfl: 0 warfarin (COUMADIN) 2.5 MG tablet, Take 5 mg by mouth., Disp: , Rfl: ACTIVE PROBLEMS: Patient Active Problem List Diagnosis Pyoderma gangrenosum Type 2 diabetes mellitus with diabetic neuropathic arthropathy, without long -term current use of insulin Diabetic peripheral neuropathy Corticosteroid dependence History of positive PPD Acute metabolic encephalopathy Acute on chronic systolic (congestive) heart failure Chronic osteomyelitis of right humerus Essential hypertension LV (left ventricular) mural thrombus MRSA bacteremia NICM (nonischemic cardiomyopathy) Other specified sepsis Severe protein-calorie malnutrition Severe sepsis due to methicillin resistant Staphylococcus aureus (MRSA) with acute organ dysfunction Staphylococcal arthritis of right elbow Type 2 diabetes mellitus with complication, without long-term current use of insulin Cellulitis of right elbow Inflammation of bursa REVIEW OF SYSTEMS: General: denies fever, chills, night sweats, nausea, or vomiting Neurologic: denies numbness, tingling, weakness, or problems with balance VITAL SIGNS: Vital Signs Height: 5' 2" (157.5 cm) Weight - Scale: 127 lb (57.6 kg) PHYSICAL EXAM: Constitutional: awake, alert, follows commands, and in no acute distress Skin: intact without abrasions, rashes, or draining sinuses Neurologic: normal gait, normal strength and sensation in extremities Musculoskeletal: right arm with healed wounds. ROM present in elbow with minima l pain. No signs of infection. No change in function of hand. IMAGING / LABORATORY FINDINGS: Last CRP 1.1 Previous CRP 2.7 PROCEDURES: None COUNSELING / PATIENT EDUCATION: None Jorge Welch M.D. [facility] [employer] Machine Servicer - Orthopedic Trauma Medical Student Selective Course Director Departmental Lead Elective Officer [facility] Department of Orthopedic Surgery C DT documented in this encounter Plan of Treatment Health Maintenance Due Date Last Done Comments [...] Chronic osteomyelitis of right humerus - Primary Staphylococcal arthritis of right elbow Pyogenic arthritis, upper arm documented in this encounter Insurance Type Payer Benefit Subscriber ID Effective Phone Address Plan / Dates Group Medicare [employer] CHOICE/JHONATHAN xxxxxxxxx 2018-P [address] [place] [id number] PPO/[place] [address] (Home) [place] [address] documented as of this encounter
--- OUTSIDE RECORDS SUMMARY | 2019-02-27 08:03 | XMS REPORT ---
Author Author [facility] Address Unknown Phone Unavailable Care Team Providers Care Trust Vault Clerk Name Role Phone Quinton Campbell Unavailable Unavailable REILLY JARQUIN Unavailable Unavailable ERICK HARPER Unavailable Unavailable DR RADHA BERNAL Unavailable Unavailable Arjun ZARCO Unavailable Unavailable AGUSTINA, SEBASTIAN Unavailable Unavailable JAITLY, KLAUS Unavailable Unavailable Problems This patient has no known problems. Allergies, Adverse Reactions, Alerts This patient has no known allergies or adverse reactions. Medications This patient has no known medications. Encounters Start Date/Time End Date/Time Encounter Type Admission Type Attending [facility] Care Facility Care Department Encounter ID 2019-02-24 11:43:00 2019-02-24 11:43:00 Emergency E [facility] [address] 2018-04-11 11:17:00 2018-05-23 23:59:00 Outpatient C RADHA BERNAL [facility] [place] [id number] 2018-03-01 09:00:00 2018-04-22 23:59:00 Outpatient TOMER PANIAGUA [facility] [place] [id number] 2017-08-06 08:30:00 2018-03-04 23:59:00 Outpatient SEBASTIAN SANDERS [facility] [place] [id number] 2017-07-05 07:53:00 2017-08-05 23:59:00 Outpatient SEBASTIAN SANDERS [facility] [place] PT [id number] Results Test Description Test Time Test Comments Text Results Atomic Results Result Comments CR - XRAY TIB-FIB XR AP/LAT LT 2018-11-04 14:07:43 CLINICAL INDICATION: D89.89 Oth disrd involving the immune mechanism, NECProcedure Code 31941 Description CR - XRAY TIB-FIB XR AP/LAT LT FINDINGS:COMPARISON: 03/07/2018No acute fracture or dislocation. No new lytic or blastic lesion. The left tibia and fibula remain intact. There is some minor hypertrophic spurring at the intercondylar tibial spines. No significant change in the soft tissues.IMPR ESSION:No significant interval change 03/07/2018 AFB CULTURE + SMEAR 2018-10-23 09:26:00 CULTURE (BEAKER) (test tpku=7394) No acid-fast bacilli isolated in 42 days AFB SMEAR (BEAKER) (test wzxa=728) No acid fast bacilli seen AFB CULTURE + [id number] 09:26:00* Test Item Value Reference Range Comments CULTURE (BEAKER) (test keqw=2781) No acid-fast bacilli isolated in 42 days AFB SMEAR (BEAKER) (test trbc=104) No acid fast bacilli seen AFB CULTURE + [id number] 09:26:00* Test Item Value Reference Range Comments CULTURE (BEAKER) (test kexj=8583) No acid-fast bacilli isolated in 42 days AFB SMEAR (BEAKER) (test kmkg=088) No acid fast bacilli seen AFB CULTURE + [id number] 09:26:00* Test Item Value Reference Range Comments CULTURE (BEAKER) (test qhsh=4382) No acid-fast bacilli isolated in 42 days AFB SMEAR (BEAKER) (test jyfa=381) No acid fast bacilli seen AFB CULTURE + [id number] 09:26:00* Test Item Value Reference Range Comments CULTURE (BEAKER) (test lrhk=3955) No acid-fast bacilli isolated in 42 days AFB SMEAR (BEAKER) (test crac=390) No acid fast bacilli seen FUNGUS CULTURE + [id number] 18:41:00* Test Item Value Reference Range Comments CULTURE (BEAKER) (test hbzq=4298) No fungus isolated in 28 days FUNGUS SMEAR (BEAKER) (test trzj=4363) No fungi seen FUNGUS CULTURE + [id number] 18:41:00* Test Item Value Reference Range Comments CULTURE (BEAKER) (test izxd=7002) No fungus isolated in 28 days FUNGUS SMEAR (BEAKER) (test ulfd=3556) No fungi seen FUNGUS CULTURE + [id number] 18:41:00* Test Item Value Reference Range Comments CULTURE (BEAKER) (test zrcp=1136) No fungus isolated in 28 days FUNGUS SMEAR (BEAKER) (test ojfc=7992) No fungi seen FUNGUS CULTURE + [id number] 18:41:00* Test Item Value Reference Range Comments CULTURE (BEAKER) (test gxxp=5657) No fungus isolated in 28 days FUNGUS SMEAR (BEAKER) (test dwyk=4765) No fungi seen FUNGUS CULTURE + [id number] 18:41:00* Test Item Value Reference Range Comments CULTURE (BEAKER) (test olqh=3037) No fungus isolated in 28 days FUNGUS SMEAR (BEAKER) (test rtlb=8521) No fungi seen POCT-GLUCOSE [id number] 12:59:00* Test Item Value Reference Range Comments POC-GLUCOSE METER (BEAKER) (test krgz=4175) 207 mg/dL 70-110 TESTED AT [facility] [address] [address] CBC W/PLT COUNT & AUTO [id number] 10:49:00* Test Item Value Reference Range Comments WHITE BLOOD CELL COUNT (BEAKER) (test xtit=782) 14.3 K/ L 3.5-10.5 RED BLOOD CELL COUNT (BEAKER) (test tvpc=379) 3.64 M/ L 3.93-5.22 HEMOGLOBIN (BEAKER) (test iozb=749) 10.1 GM/DL 11.2-15.7 HEMATOCRIT (BEAKER) (test siqv=911) 33.2 % 34.1-44.9 MEAN CORPUSCULAR VOLUME (BEAKER) (test awvx=764) 91.2 fL 79.4-94.8 MEAN CORPUSCULAR HEMOGLOBIN (BEAKER) (test rceo=560) 27.7 pg 25.6-32.2 MEAN CORPUSCULAR HEMOGLOBIN CONC (BEAKER) (test xtoh=580) 30.4 GM/DL 32.2-35.5 RED CELL DISTRIBUTION WIDTH (BEAKER) (test wzuy=669) 15.9 % 11.7-14.4 PLATELET COUNT (BEAKER) (test nbwf=276) 452 K/CU MM 150-450 MEAN PLATELET VOLUME (BEAKER) (test jofp=221) 9.5 fL 9.4-12.3 NUCLEATED RED BLOOD CELLS (BEAKER) (test pcat=272) 0 /100 WBC 0-0 (CELLAVISION MANUAL DIFF)2018-09-16 10:49:00* Test Item Value Reference Range Comments NEUTROPHILS - REL (CELLAVISION)(BEAKER) (test qfhs=4022) 65 % LYMPHOCYTES - REL (CELLAVISION)(BEAKER) (test bkvp=3811) 18 % MONOCYTES - REL (CELLAVISION)(BEAKER) (test xyjt=0322) 9 % EOSINOPHILS - REL (CELLAVISION)(BEAKER) (test gpzn=3483) 2 % ATYPICAL LYMPHOCYTES - REL (CELLAVISION)(BEAKER) (test xpju=2187) 5 % 0-0 NEUTROPHILS - ABS (CELLAVISION)(BEAKER) (test ksrt=1064) 9.30 K/ul 1.56-6.13 LYMPHOCYTES - ABS (CELLAVISION)(BEAKER) (test emkv=0646) 2.57 K/ul 1.18-3.74 MONOCYTES - ABS (CELLAVISION)(BEAKER) (test eygv=1478) 1.29 K/uL 0.24-0.36 EOSINOPHILS - ABS (CELLAVISION)(BEAKER) (test ibqc=3848) 0.29 K/uL 0.04-0.36 ATYPICAL LYMPHOCYTES - ABS (CELLAVISION)(BEAKER) (test bawp=1398) 0.72 K/uL 0.00-0.00 TOTAL COUNTED (BEAKER) (test wnmh=9062) 100 LARGE PLT(BEAKER) (test whmp=8713) Present PLASMA CELLS(BEAKER) (test fyof=1526) Present POLYCHROMATOPHILLIC RBCS(BEAKER) (test sxbr=663) 1+ few ANISOCYTOSIS (BEAKER) (test wclc=656) 2+ moderate POIKILOCYTES (BEAKER) (test anwq=137) 1+ few OVALOCYTES (BEAKER) (test knup=608) 1+ few TEAR DROP CELLS (BEAKER) (test pajn=084) 1+ few FARRAH CELLS (BEAKER) (test cyxd=654) 2+ moderate ARTIFACT (CELLAVISION)(BEAKER) (test snrj=3426) Present PLATELET CONCENTRATION (CELLAVISION)(BEAKER) (test jxqr=5760) Adequate Received comment: User comments: Slide comments: WBC: SEGMENTED WITH TOXIC GRANU LATION PRESENT BASIC METABOLIC [id number] 06:29:00* Test Item Value Reference Range Comments SODIUM (BEAKER) (test ounp=022) 137 meq/L 136-145 POTASSIUM (BEAKER) (test ktpd=573) 4.0 meq/L 3.5-5.1 CHLORIDE (BEAKER) (test nizq=852) 104 meq/L 98-107 CO2 (BEAKER) (test zwbu=476) 24 meq/L 22-29 BLOOD UREA NITROGEN (BEAKER) (test kfpn=003) 21 mg/dL 7-21 CREATININE (BEAKER) (test etau=422) 0.68 mg/dL 0.57-1.25 GLUCOSE RANDOM (BEAKER) (test innn=061) 105 mg/dL 70-105 CALCIUM (BEAKER) (test tygh=090) 9.6 mg/dL 8.4-10.2 EGFR (BEAKER) (test ebej=9031) 88 mL/min/1.73 sq m ESTIMATED GFR IS NOT ACCURATE CREATININE CLEARANCE IN PREDICTING GLOMERULAR FILTRATION RATE. ESTIMATED GFR IS NOT APPLICABLE FOR DIALYSIS PATIENTS. PROTHROMBIN TIME/[id number] 05:20:00* Test Item Value Reference Range Comments PROTIME (BEAKER) (test mbaf=719) 24.9 seconds 11.7-14.7 INR (BEAKER) (test pvuw=332) 2.3 <=5.9 RECOMMENDED COUMADIN/WARFARIN INR THERAPY RANGESSTANDARD DOSE: 2.0 - 3.0 Inclu earl: PROPHYLAXIS for venous thrombosis, systemic embolization; TREATMENT for zahra ous thrombosis and/or pulmonary embolus.HIGH RISK: Target INR is 2.5-3.5 for pat ients with mechanical heart valves.While on warfarin.POCT-GLUCOSE METER 2018-09-15 23:42:00* Test Item Value Reference Range Comments POC-GLUCOSE METER (BEAKER) (test upom=9084) 247 mg/dL 70-110 TESTED AT [facility] [address] [address] POCT-GLUCOSE [id number] 17:19:00* Test Item Value Reference Range Comments POC-GLUCOSE METER (BEAKER) (test pmyx=7694) 250 mg/dL 70-110 TESTED AT [facility] [address] [address] POCT-GLUCOSE [id number] 12:24:00* Test Item Value Reference Range Comments POC-GLUCOSE METER (BEAKER) (test oorw=3365) 157 mg/dL 70-110 TESTED AT [address] [address] POCT-GLUCOSE [id number] 08:57:00* Test Item Value Reference Range Comments POC-GLUCOSE METER (BEAKER) (test wwpa=3840) 119 mg/dL 70-110 TESTED AT [address] [address] PROTHROMBIN TIME/[id number] 06:45:00* Test Item Value Reference Range Comments PROTIME (BEAKER) (test rxjo=128) 23.9 seconds 11.7-14.7 INR (BEAKER) (test gexx=543) 2.1 <=5.9 RECOMMENDED COUMADIN/WARFARIN INR THERAPY RANGESSTANDARD DOSE: 2.0 - 3.0 Inclu earl: PROPHYLAXIS for venous thrombosis, systemic embolization; TREATMENT for zahra ous thrombosis and/or pulmonary embolus.HIGH RISK: Target INR is 2.5-3.5 for pat ients with mechanical heart valves.While on warfarin.POCT-GLUCOSE METER 2018-09-14 21:50:00* Test Item Value Reference Range Comments POC-GLUCOSE METER (BEAKER) (test sfac=1928) 152 mg/dL 70-110 TESTED AT [address] [address] POCT-GLUCOSE [id number] 17:24:00* Test Item Value Reference Range Comments POC-GLUCOSE METER (BEAKER) (test qetu=0905) 382 mg/dL 70-110 Verify with Lab draw/TESTED AT [address] [address] POCT-GLUCOSE [id number] 11:54:00* Test Item Value Reference Range Comments POC-GLUCOSE METER (BEAKER) (test fgdw=7464) 221 mg/dL 70-110 TESTED AT [address] [address] POCT-GLUCOSE [id number] 08:38:00* Test Item Value Reference Range Comments POC-GLUCOSE METER (BEAKER) (test nixp=3161) 109 mg/dL 70-110 TESTED AT [address] [address] PROTHROMBIN TIME/[id number] 06:09:00* Test Item Value Reference Range Comments PROTIME (BEAKER) (test bjjw=150) 25.2 seconds 11.7-14.7 INR (BEAKER) (test ieqe=313) 2.3 <=5.9 RECOMMENDED COUMADIN/WARFARIN INR THERAPY RANGESSTANDARD DOSE: 2.0 - 3.0 Inclu earl: PROPHYLAXIS for venous thrombosis, systemic embolization; TREATMENT for zahra ous thrombosis and/or pulmonary embolus.HIGH RISK: Target INR is 2.5-3.5 for pat ients with mechanical heart valves.While on warfarin.CBC (HEMOGRAM ONLY) 2018-09-14 05:58:00* Test Item Value Reference Range Comments WHITE BLOOD CELL COUNT (BEAKER) (test dlrw=142) 12.9 K/ L 3.5-10.5 RED BLOOD CELL COUNT (BEAKER) (test phhh=947) 3.29 M/ L 3.93-5.22 HEMOGLOBIN (BEAKER) (test dvxc=276) 9.2 GM/DL 11.2-15.7 HEMATOCRIT (BEAKER) (test moef=240) 30.1 % 34.1-44.9 MEAN CORPUSCULAR VOLUME (BEAKER) (test xlex=750) 91.5 fL 79.4-94.8 MEAN CORPUSCULAR HEMOGLOBIN (BEAKER) (test jlds=434) 28.0 pg 25.6-32.2 MEAN CORPUSCULAR HEMOGLOBIN CONC (BEAKER) (test gvkl=750) 30.6 GM/DL 32.2-35.5 RED CELL DISTRIBUTION WIDTH (BEAKER) (test oecq=305) 15.5 % 11.7-14.4 PLATELET COUNT (BEAKER) (test oqng=306) 436 K/CU MM 150-450 MEAN PLATELET VOLUME (BEAKER) (test bzvi=629) 9.9 fL 9.4-12.3 NUCLEATED RED BLOOD CELLS (BEAKER) (test czmy=567) 0 /100 WBC 0-0 POCT-GLUCOSE [id number] 22:13:00* Test Item Value Reference Range Comments POC-GLUCOSE METER (BEAKER) (test qtev=4449) 211 mg/dL 70-110 TESTED AT [facility] [address] [address] POCT-GLUCOSE [id number] 17:58:00* Test Item Value Reference Range Comments POC-GLUCOSE METER (BEAKER) (test sdsh=3238) 288 mg/dL 70-110 TESTED AT [address] [address] POCT-GLUCOSE [id number] 12:14:00* Test Item Value Reference Range Comments POC-GLUCOSE METER (BEAKER) (test yqiz=5632) 235 mg/dL 70-110 TESTED AT [address] [address] POCT-GLUCOSE [id number] 08:29:00* Test Item Value Reference Range Comments POC-GLUCOSE METER (BEAKER) (test pdkg=3962) 128 mg/dL 70-110 TESTED AT [address] [address] PROTHROMBIN TIME/[id number] 06:44:00* Test Item Value Reference Range Comments PROTIME (BEAKER) (test syvg=789) 26.5 seconds 11.7-14.7 INR (BEAKER) (test rici=831) 2.5 <=5.9 RECOMMENDED COUMADIN/WARFARIN INR THERAPY RANGESSTANDARD DOSE: 2.0 - 3.0 Inclu earl: PROPHYLAXIS for venous thrombosis, systemic embolization; TREATMENT for zahra ous thrombosis and/or pulmonary embolus.HIGH RISK: Target INR is 2.5-3.5 for pat ients with mechanical heart valves.While on warfarin.POCT-GLUCOSE METER 2018-09-13 00:15:00* Test Item Value Reference Range Comments POC-GLUCOSE METER (BEAKER) (test ysyi=8889) 245 mg/dL 70-110 TESTED AT [address] [address] POCT-GLUCOSE [id number] 18:25:00* Test Item Value Reference Range Comments POC-GLUCOSE METER (BEAKER) (test qjda=5823) 206 mg/dL 70-110 TESTED AT [address] [address] POCT-GLUCOSE [id number] 12:48:00* Test Item Value Reference Range Comments POC-GLUCOSE METER (BEAKER) (test rwjf=8074) 324 mg/dL 70-110 Notified SINAN MOHR/TESTED AT [address] [address] [id number] 07:56:00* Test Item Value Reference Range Comments MAGNESIUM (BEAKER) (test wiac=577) 1.7 mg/dL 1.6-2.6 POCT-GLUCOSE [id number] 07:48:00* Test Item Value Reference Range Comments POC-GLUCOSE METER (BEAKER) (test vmux=1634) 100 mg/dL 70-110 TESTED AT [facility] [address] [address] BASIC METABOLIC [id number] 07:35:00* Test Item Value Reference Range Comments SODIUM (BEAKER) (test kyng=985) 140 meq/L 136-145 POTASSIUM (BEAKER) (test wcey=820) 3.4 meq/L 3.5-5.1 CHLORIDE (BEAKER) (test lmqj=571) 108 meq/L 98-107 CO2 (BEAKER) (test hmlh=115) 23 meq/L 22-29 BLOOD UREA NITROGEN (BEAKER) (test puoq=043) 15 mg/dL 7-21 CREATININE (BEAKER) (test tpya=918) 0.59 mg/dL 0.57-1.25 GLUCOSE RANDOM (BEAKER) (test oqdv=055) 90 mg/dL 70-105 CALCIUM (BEAKER) (test vogo=158) 8.9 mg/dL 8.4-10.2 EGFR (BEAKER) (test ibgq=8489) 104 mL/min/1.73 sq m ESTIMATED GFR IS NOT ACCURATE CREATININE CLEARANCE IN PREDICTING GLOMERULAR FILTRATION RATE. ESTIMATED GFR IS NOT APPLICABLE FOR DIALYSIS PATIENTS. VANCOMYCIN LEVEL, [id number] 06:55:00* Test Item Value Reference Range Comments VANCOMYCIN TROUGH (BEAKER) (test ioou=329) 14.6 ug/mL 10.0-20.0 Please draw 1 hr before am vanc dose.PROTHROMBIN TIME/[id number] 06:52:00* Test Item Value Reference Range Comments PROTIME (BEAKER) (test aaqa=564) 25.7 seconds 11.7-14.7 INR (BEAKER) (test ajdp=366) 2.4 <=5.9 RECOMMENDED COUMADIN/WARFARIN INR THERAPY RANGESSTANDARD DOSE: 2.0 - 3.0 Inclu earl: PROPHYLAXIS for venous thrombosis, systemic embolization; TREATMENT for zahra ous thrombosis and/or pulmonary embolus.HIGH RISK: Target INR is 2.5-3.5 for pat ients with mechanical heart valves.While on warfarin.CBC W/PLT COUNT & AUTO [id number] 06:48:00* Test Item Value Reference Range Comments WHITE BLOOD CELL COUNT (BEAKER) (test admj=039) 9.6 K/ L 3.5-10.5 RED BLOOD CELL COUNT (BEAKER) (test zohp=006) 3.05 M/ L 3.93-5.22 HEMOGLOBIN (BEAKER) (test vyhf=469) 8.6 GM/DL 11.2-15.7 HEMATOCRIT (BEAKER) (test tlxs=214) 28.4 % 34.1-44.9 MEAN CORPUSCULAR VOLUME (BEAKER) (test nrlo=341) 93.1 fL 79.4-94.8 MEAN CORPUSCULAR HEMOGLOBIN (BEAKER) (test klzf=031) 28.2 pg 25.6-32.2 MEAN CORPUSCULAR HEMOGLOBIN CONC (BEAKER) (test dwxp=488) 30.3 GM/DL 32.2-35.5 RED CELL DISTRIBUTION WIDTH (BEAKER) (test abhy=453) 15.2 % 11.7-14.4 PLATELET COUNT (BEAKER) (test wzzt=532) 365 K/CU MM 150-450 MEAN PLATELET VOLUME (BEAKER) (test ryny=616) 9.9 fL 9.4-12.3 NUCLEATED RED BLOOD CELLS (BEAKER) (test rtpo=587) 0 /100 WBC 0-0 NEUTROPHILS RELATIVE PERCENT (BEAKER) (test facz=460) 57 % LYMPHOCYTES RELATIVE PERCENT (BEAKER) (test zcic=841) 29 % MONOCYTES RELATIVE PERCENT (BEAKER) (test ibqi=133) 10 % EOSINOPHILS RELATIVE PERCENT (BEAKER) (test bzkp=746) 2 % BASOPHILS RELATIVE PERCENT (BEAKER) (test uqco=283) 0 % NEUTROPHILS ABSOLUTE COUNT (BEAKER) (test gcjj=354) 5.49 K/ L 1.56-6.13 LYMPHOCYTES ABSOLUTE COUNT (BEAKER) (test hdap=555) 2.74 K/ L 1.18-3.74 MONOCYTES ABSOLUTE COUNT (BEAKER) (test bojp=660) 0.99 K/ L 0.24-0.36 EOSINOPHILS ABSOLUTE COUNT (BEAKER) (test kziq=628) 0.23 K/ L 0.04-0.36 BASOPHILS ABSOLUTE COUNT (BEAKER) (test qsmc=210) 0.04 K/ L 0.01-0.08 IMMATURE GRANULOCYTES-RELATIVE PERCENT (BEAKER) (test uobb=6852) 1 % 0-1 POCT-GLUCOSE [id number] 21:25:00* Test Item Value Reference Range Comments POC-GLUCOSE METER (BEAKER) (test zhms=0472) 238 mg/dL 70-110 TESTED AT [facility] [address] [address] POCT-GLUCOSE [id number] 18:35:00* Test Item Value Reference Range Comments POC-GLUCOSE METER (BEAKER) (test iwgh=3684) 240 mg/dL 70-110 TESTED AT [place] [id number] [address] ANAEROBIC [id number] 17:05:00* Test Item Value Reference Range Comments CULTURE (BEAKER) (test spnm=7810) No anaerobes isolated ANAEROBIC [id number] 17:04:00* Test Item Value Reference Range Comments CULTURE (BEAKER) (test oxlp=8131) No anaerobes isolated ANAEROBIC [id number] 17:03:00* Test Item Value Reference Range Comments CULTURE (BEAKER) (test ruyw=3155) No anaerobes isolated SURGICALLY OBTAINED CULTURE + GRAM [id number] 14:20:00* Test Item Value Reference Range Comments CULTURE (BEAKER) (test lkgx=7180) COAGULASE NEGATIVE STAPHYLOCOCCUS From Broth Only Coagulase negative Staphylococcus Clindamycin (test code=10) Erythromycin (test code=4) Linezolid (test code=40) Nitrofurantoin (test code=23) Oxacillin (test code=14) Rifampin (test code=43) Tetracycline (test code=2) Trimethoprim + Sulfamethoxazole (test code=47) Vancomycin (test code=13) GRAM STAIN RESULT (BEAKER) (test ooxu=8453) 1+ WBCs GRAM STAIN RESULT (BEAKER) (test keve=789442) <1+ gram positive rods TISSUE [id number] 14:08:00Surgical Pathology Report Case: [id number] Authorizing Provider: Jorge Welch Collected: 09/06/2018 1549 MD [place] Ordering Location: [address] Received: 09/09/2018 1005 Service Pathologist: Kathleen Crandall MD Specimens: A) - Elbow, Right, Right elbow synovium B) - Bone, Distal Humerus Bone C) - Bone, Heterotopic Bone D) - Elbow, Right, Right elbow, intramedullary A. SOFT TISSUE, RIGHT ELBOW, EXCISION: - CHRONIC SYNOVITIS - BONE WITH REACTIVE CHANGES B. BONE, DISTAL HUMERUS, EXCISION: - OSTEONECROSIS AND REACTIVE CHANGES - CONSISTENT WITH CHRONIC OSTEOMYELITISC. BONE, HETEROTOPIC, EXCISION: - REACTIVE WOVEN BONE AND CARTILAGE - CONSISTENT WITH HETEROTOPIC BONE FORMATIOND. BONE, RIGHT ELBOW INTRAMEDULLARY, EXCISION: - BONE SPICULES WITH AREAS OF OSTEONECROSIS - FIBROTIC MARROW - CONSISTENT WITH CHRONIC OSTEOMYELITIS Signing Pathologist Direct Phone Line: [phone] signed by Kathleen Crandall MD on 09/11/2018 at 2:08 PMA. 41027 X 1B. 35408 X 1; 87138 X 1C. 45303 X 1; 72052 X 1D. 14077 X 1; 50449 X 1Septic arthritis, osteomyelitis right elbowA. Right elbow synovium; B. Distal humerus bone; C. Heterotopic bone; D. Right elbow intramedullary The specimen is received in four containers of formalin all labeled with the patient's information. Part A labeled "right elbow synovium" consists of christensen- holliday soft tissue measuring 1.5 x 1 x 0.4 cm. The specimen is sectioned and submitted entirely A1. Part B labeled "distal humerus bone" consists of two seg ments of christensen-holliday bone measuring 1 and 2 cm, submitted entirely B1 for decalcifi cation. Part C labeled "heterotopic bone" consists of a segment of christensen-holliday bone and soft tissue measuring 1.5 x 1 x 0.5 cm. The specimen is bisected, submitted entirely C1 for decalcification. Part D labeled "right elbow intramedullary" co nsists of multiple fragments of christensen bone measuring 1.5 x 1 x 0.4 cm in aggregate . Submitted entirely D1 for decalcification. CG/pl A-D: [facility], [facility] of [facility]ology, [address] [place] [address] [phone], NTIM-GLUCOSE [id number] 12:02:00* Test Item Value Reference Range Comments POC-GLUCOSE METER (BIENVENIDO) (test dpda=6540) 199 mg/dL 70-110 TESTED AT [address] [address] POCT-GLUCOSE [id number] 10:37:00* Test Item Value Reference Range Comments POC-GLUCOSE METER (BEAKER) (test dwww=9136) 156 mg/dL 70-110 TESTED AT [place] [id number] BLOOD [id number] 08:01:00* Test Item Value Reference Range Comments CULTURE (BEAKER) (test lwjl=6442) No growth in 5 days BLOOD [id number] 08:01:00* Test Item Value Reference Range Comments CULTURE (BEAKER) (test gsan=1793) No growth in 5 days PROTHROMBIN TIME/[id number] 05:27:00* Test Item Value Reference Range Comments PROTIME (BEAKER) (test etgq=965) 20.0 seconds 11.7-14.7 INR (BEAKER) (test cplb=430) 1.7 <=5.9 RECOMMENDED COUMADIN/WARFARIN INR THERAPY RANGESSTANDARD DOSE: 2.0 - 3.0 Inclu earl: PROPHYLAXIS for venous thrombosis, systemic embolization; TREATMENT for zahra ous thrombosis and/or pulmonary embolus.HIGH RISK: Target INR is 2.5-3.5 for pat ients with mechanical heart valves.While on warfarin.POCT-GLUCOSE METER 2018-09-10 21:32:00* Test Item Value Reference Range Comments POC-GLUCOSE METER (BEAKER) (test prxh=3758) 211 mg/dL 70-110 TESTED AT [place] [id number] POCT-GLUCOSE [id number] 18:56:00* Test Item Value Reference Range Comments POC-GLUCOSE METER (BEAKER) (test dngx=1413) 299 mg/dL 70-110 TESTED AT [place] [id number] POCT-GLUCOSE [id number] 13:56:00* Test Item Value Reference Range Comments POC-GLUCOSE METER (BEAKER) (test svix=3600) 239 mg/dL 70-110 TESTED AT [place] [id number] POCT-GLUCOSE [id number] 07:50:00* Test Item Value Reference Range Comments POC-GLUCOSE METER (BEAKER) (test lnzi=5747) 97 mg/dL 70-110 TESTED AT [place] [id number] ANAEROBIC [id number] 07:30:00* Test Item Value Reference Range Comments CULTURE (BEAKER) (test wxbx=9284) No anaerobes isolated ANAEROBIC [id number] 07:30:00* Test Item Value Reference Range Comments CULTURE (BEAKER) (test rumc=9279) No anaerobes isolated [id number] 05:06:00* Test Item Value Reference Range Comments PHOSPHORUS (BEAKER) (test enmc=328) 2.9 mg/dL 2.3-4.7 [id number] 05:06:00* Test Item Value Reference Range Comments MAGNESIUM (BEAKER) (test iosg=119) 1.5 mg/dL 1.6-2.6 BASIC METABOLIC [id number] 05:06:00* Test Item Value Reference Range Comments SODIUM (BEAKER) (test jjrd=714) 141 meq/L 136-145 POTASSIUM (BEAKER) (test qmgs=583) 3.9 meq/L 3.5-5.1 CHLORIDE (BEAKER) (test kquj=222) 108 meq/L 98-107 CO2 (BEAKER) (test qzsd=416) 24 meq/L 22-29 BLOOD UREA NITROGEN (BEAKER) (test wxfp=067) 13 mg/dL 7-21 CREATININE (BEAKER) (test gcph=679) 0.66 mg/dL 0.57-1.25 GLUCOSE RANDOM (BEAKER) (test sckm=702) 106 mg/dL 70-105 CALCIUM (BEAKER) (test gcoz=375) 9.2 mg/dL 8.4-10.2 EGFR (BEAKER) (test qrca=3052) 91 mL/min/1.73 sq m ESTIMATED GFR IS NOT ACCURATE CREATININE CLEARANCE IN PREDICTING GLOMERULAR FILTRATION RATE. ESTIMATED GFR IS NOT APPLICABLE FOR DIALYSIS PATIENTS. VANCOMYCIN LEVEL, [id number] 05:03:00* Test Item Value Reference Range Comments VANCOMYCIN TROUGH (BEAKER) (test wddd=202) 19.9 ug/mL 10.0-20.0 PROTHROMBIN [id number] 04:57:00* Test Item Value Reference Range Comments PROTIME (BEAKER) (test ouzi=136) 21.7 seconds 11.7-14.7 INR (BEAKER) (test fwwu=903) 1.9 <=5.9 RECOMMENDED COUMADIN/WARFARIN INR THERAPY RANGESSTANDARD DOSE: 2.0 - 3.0 Inclu earl: PROPHYLAXIS for venous thrombosis, systemic embolization; TREATMENT for zahra ous thrombosis and/or pulmonary embolus.HIGH RISK: Target INR is 2.5-3.5 for pat ients with mechanical heart valves.While on warfarin.CBC W/PLT COUNT & AUTO [id number] 04:46:00* Test Item Value Reference Range Comments WHITE BLOOD CELL COUNT (BEAKER) (test hfpq=214) 12.4 K/ L 3.5-10.5 RED BLOOD CELL COUNT (BEAKER) (test qyvc=841) 3.15 M/ L 3.93-5.22 HEMOGLOBIN (BEAKER) (test bhqg=765) 8.9 GM/DL 11.2-15.7 HEMATOCRIT (BEAKER) (test vsfz=521) 29.2 % 34.1-44.9 MEAN CORPUSCULAR VOLUME (BEAKER) (test pmzv=251) 92.7 fL 79.4-94.8 MEAN CORPUSCULAR HEMOGLOBIN (BEAKER) (test yele=482) 28.3 pg 25.6-32.2 MEAN CORPUSCULAR HEMOGLOBIN CONC (BEAKER) (test xwtb=434) 30.5 GM/DL 32.2-35.5 RED CELL DISTRIBUTION WIDTH (BEAKER) (test risz=109) 14.8 % 11.7-14.4 PLATELET COUNT (BEAKER) (test diqf=072) 341 K/CU MM 150-450 MEAN PLATELET VOLUME (BEAKER) (test nbzc=408) 9.8 fL 9.4-12.3 NUCLEATED RED BLOOD CELLS (BEAKER) (test kiik=319) 0 /100 WBC 0-0 NEUTROPHILS RELATIVE PERCENT (BEAKER) (test xaab=818) 65 % LYMPHOCYTES RELATIVE PERCENT (BEAKER) (test todj=755) 24 % MONOCYTES RELATIVE PERCENT (BEAKER) (test wiqh=063) 8 % EOSINOPHILS RELATIVE PERCENT (BEAKER) (test wnik=820) 1 % BASOPHILS RELATIVE PERCENT (BEAKER) (test atae=811) 0 % NEUTROPHILS ABSOLUTE COUNT (BEAKER) (test bxvj=454) 8.07 K/ L 1.56-6.13 LYMPHOCYTES ABSOLUTE COUNT (BEAKER) (test qqes=432) 2.98 K/ L 1.18-3.74 MONOCYTES ABSOLUTE COUNT (BEAKER) (test hwgv=177) 1.03 K/ L 0.24-0.36 EOSINOPHILS ABSOLUTE COUNT (BEAKER) (test xgvt=707) 0.15 K/ L 0.04-0.36 BASOPHILS ABSOLUTE COUNT (BEAKER) (test fmod=249) 0.04 K/ L 0.01-0.08 IMMATURE GRANULOCYTES-RELATIVE PERCENT (BEAKER) (test mesr=3811) 1 % 0-1 POCT-GLUCOSE [id number] 21:50:00* Test Item Value Reference Range Comments POC-GLUCOSE METER (BEAKER) (test vgea=0366) 301 mg/dL 70-110 TESTED AT [place] [id number] [facility] [address] HEMOGLOBIN [id number] 14:06:00* Test Item Value Reference Range Comments HEMOGLOBIN A1C (BEAKER) (test ymfs=730) 6.1 % 4.3-6.1 POCT-GLUCOSE [id number] 11:59:00* Test Item Value Reference Range Comments POC-GLUCOSE METER (BEAKER) (test toxq=2875) 178 mg/dL 70-110 TESTED AT [address] [address] SURGICALLY OBTAINED CULTURE + GRAM [id number] 09:37:00* Test Item Value Reference Range Comments CULTURE (BEAKER) (test osmv=1487) No growth GRAM STAIN RESULT (BEAKER) (test bpck=7659) <1+ WBCs GRAM STAIN RESULT (BEAKER) (test ukez=99197) No organisms seen SURGICALLY OBTAINED CULTURE + GRAM [id number] 09:37:00* Test Item Value Reference Range Comments CULTURE (BEAKER) (test avul=0077) No growth GRAM STAIN RESULT (BEAKER) (test egxq=3600) <1+ WBCs GRAM STAIN RESULT (BEAKER) (test qbgm=76864) No organisms seen SURGICALLY OBTAINED CULTURE + GRAM [id number] 09:35:00* Test Item Value Reference Range Comments CULTURE (BEAKER) (test wxyg=9187) No growth GRAM STAIN RESULT (BEAKER) (test rcho=6138) <1+ WBCs GRAM STAIN RESULT (BEAKER) (test deju=46619) No organisms seen SURGICALLY OBTAINED CULTURE + GRAM [id number] 09:35:00* Test Item Value Reference Range Comments CULTURE (BEAKER) (test rdkb=2321) No growth GRAM STAIN RESULT (BEAKER) (test bblx=4006) 1+ WBCs GRAM STAIN RESULT (BEAKER) (test muhq=35724) No organisms seen POCT-GLUCOSE [id number] 08:59:00* Test Item Value Reference Range Comments POC-GLUCOSE METER (BEAKER) (test alxm=7965) 95 mg/dL 70-110 TESTED AT [address] [address] PROTHROMBIN [id number] 07:16:00* Test Item Value Reference Range Comments PROTIME (BEAKER) (test ktcd=200) 20.1 seconds 11.7-14.7 INR (BEAKER) (test tmkc=932) 1.7 <=5.9 RECOMMENDED COUMADIN/WARFARIN INR THERAPY RANGESSTANDARD DOSE: 2.0 - 3.0 Inclu earl: PROPHYLAXIS for venous thrombosis, systemic embolization; TREATMENT for zahra ous thrombosis and/or pulmonary embolus.HIGH RISK: Target INR is 2.5-3.5 for pat ients with mechanical heart valves.While on warfarin.[id number] 06:48:00 * Test Item Value Reference Range Comments FERRITIN (BEAKER) (test kqdd=358) 848 ng/mL 5-275 IRON, TIBC, % SAT. (WITHOUT FERRITIN)2018-09-09 06:42:00* Test Item Value Reference Range Comments IRON (BEAKER) (test usff=240) 18.0 ug/dL 40.0-160.0 TOTAL IRON BINDING CAPACITY (BEAKER) (test bvdm=514) 189 ug/dL 250-450 IRON % SATURATION (2) (BEAKER) (test vjkw=2729) 10 % 20-55 POCT-GLUCOSE [id number] 05:52:00* Test Item Value Reference Range Comments POC-GLUCOSE METER (BEAKER) (test efis=1309) 178 mg/dL 70-110 TESTED AT [place] [id number] [facility] [address] [id number] 05:36:00* Test Item Value Reference Range Comments PHOSPHORUS (BEAKER) (test nvkx=732) 3.5 mg/dL 2.3-4.7 [id number] 05:36:00* Test Item Value Reference Range Comments MAGNESIUM (BEAKER) (test tjst=547) 1.6 mg/dL 1.6-2.6 BASIC METABOLIC [id number] 05:36:00* Test Item Value Reference Range Comments SODIUM (BEAKER) (test xpyv=724) 140 meq/L 136-145 POTASSIUM (BEAKER) (test dxkv=399) 3.7 meq/L 3.5-5.1 CHLORIDE (BEAKER) (test fuak=281) 109 meq/L 98-107 CO2 (BEAKER) (test ocfs=832) 23 meq/L 22-29 BLOOD UREA NITROGEN (BEAKER) (test euln=150) 13 mg/dL 7-21 CREATININE (BEAKER) (test jbrl=213) 0.72 mg/dL 0.57-1.25 GLUCOSE RANDOM (BEAKER) (test dcjc=198) 113 mg/dL 70-105 CALCIUM (BEAKER) (test hpmu=249) 8.7 mg/dL 8.4-10.2 EGFR (BEAKER) (test yulm=3226) 82 mL/min/1.73 sq m ESTIMATED GFR IS NOT ACCURATE CREATININE CLEARANCE IN PREDICTING GLOMERULAR FILTRATION RATE. ESTIMATED GFR IS NOT APPLICABLE FOR DIALYSIS PATIENTS. CBC W/PLT COUNT & AUTO [id number] 04:45:00* Test Item Value Reference Range Comments WHITE BLOOD CELL COUNT (BEAKER) (test tebg=931) 10.5 K/ L 3.5-10.5 RED BLOOD CELL COUNT (BEAKER) (test uqqo=266) 2.91 M/ L 3.93-5.22 HEMOGLOBIN (BEAKER) (test jpof=787) 8.1 GM/DL 11.2-15.7 HEMATOCRIT (BEAKER) (test ibot=749) 27.1 % 34.1-44.9 MEAN CORPUSCULAR VOLUME (BEAKER) (test tsqw=534) 93.1 fL 79.4-94.8 MEAN CORPUSCULAR HEMOGLOBIN (BEAKER) (test eagb=585) 27.8 pg 25.6-32.2 MEAN CORPUSCULAR HEMOGLOBIN CONC (BEAKER) (test ddmo=938) 29.9 GM/DL 32.2-35.5 RED CELL DISTRIBUTION WIDTH (BEAKER) (test mazf=480) 14.9 % 11.7-14.4 PLATELET COUNT (BEAKER) (test fvbk=789) 268 K/CU MM 150-450 MEAN PLATELET VOLUME (BEAKER) (test rntq=287) 10.3 fL 9.4-12.3 NUCLEATED RED BLOOD CELLS (BEAKER) (test muth=168) 0 /100 WBC 0-0 NEUTROPHILS RELATIVE PERCENT (BEAKER) (test jrmt=233) 63 % LYMPHOCYTES RELATIVE PERCENT (BEAKER) (test jkxv=006) 26 % MONOCYTES RELATIVE PERCENT (BEAKER) (test mota=184) 9 % EOSINOPHILS RELATIVE PERCENT (BEAKER) (test yxii=014) 1 % BASOPHILS RELATIVE PERCENT (BEAKER) (test akky=599) 0 % NEUTROPHILS ABSOLUTE COUNT (BEAKER) (test qhni=843) 6.58 K/ L 1.56-6.13 LYMPHOCYTES ABSOLUTE COUNT (BEAKER) (test weer=986) 2.77 K/ L 1.18-3.74 MONOCYTES ABSOLUTE COUNT (BEAKER) (test gkbz=805) 0.96 K/ L 0.24-0.36 EOSINOPHILS ABSOLUTE COUNT (BEAKER) (test idgm=148) 0.12 K/ L 0.04-0.36 BASOPHILS ABSOLUTE COUNT (BEAKER) (test lwue=852) 0.04 K/ L 0.01-0.08 IMMATURE GRANULOCYTES-RELATIVE PERCENT (BEAKER) (test xjxi=1995) 1 % 0-1 POCT-GLUCOSE [id number] 21:00:00* Test Item Value Reference Range Comments POC-GLUCOSE METER (BEAKER) (test gphq=0802) 230 mg/dL 70-110 TESTED AT [address] [address] POCT-GLUCOSE [id number] 18:05:00* Test Item Value Reference Range Comments POC-GLUCOSE METER (BEAKER) (test mcyr=8724) 311 mg/dL 70-110 Notified SINAN MOHR/TESTED AT [address] [address] POCT-GLUCOSE [id number] 12:20:00* Test Item Value Reference Range Comments POC-GLUCOSE METER (BEAKER) (test flry=2871) 144 mg/dL 70-110 TESTED AT [address] [address] RAD, CHEST, 1 VIEW, NON [id number] 09:47:00Reason for exam:->check picc placementShould this be performed at the bedside?->YesFINAL REPORT Chest, one view. HISTORY: check picc placement COMPARISON: Radiograph from 06/30/2018 IMPRESSION: Interval removal of the left IJ central venous catheter. A left PICC has its tip over the lower SVC. Streaky atelectasis in the left lung base. No pleural effusion or pneumothorax. The cardiac silhouette is unchanged. No acute bony abnormality. Signed: Christian Giron MDReport Verified Date/Time: 09/08/2018 09:47:19 Reading Location: [facility] C013Y CT Body Reading Room -GLUCOSE [id number] 07:44:00* Test Item Value Reference Range Comments POC-GLUCOSE METER (BEAKER) (test onpf=7393) 95 mg/dL 70-110 TESTED AT [address] [address] PROTHROMBIN [id number] 05:12:00* Test Item Value Reference Range Comments PROTIME (BEAKER) (test imrl=134) 14.9 seconds 11.7-14.7 INR (BEAKER) (test idpi=328) 1.2 <=5.9 RECOMMENDED COUMADIN/WARFARIN INR THERAPY RANGESSTANDARD DOSE: 2.0 - 3.0 Inclu earl: PROPHYLAXIS for venous thrombosis, systemic embolization; TREATMENT for zahra ous thrombosis and/or pulmonary embolus.HIGH RISK: Target INR is 2.5-3.5 for pat ients with mechanical heart valves.While on warfarin.[id number] 03:54:00* Test Item Value Reference Range Comments MAGNESIUM (BEAKER) (test nxju=829) 1.6 mg/dL 1.6-2.6 Specimen slightly hemolyzed [id number] 03:54:00* Test Item Value Reference Range Comments PHOSPHORUS (BEAKER) (test yrsr=326) 3.6 mg/dL 2.3-4.7 Specimen slightly hemolyzed BASIC METABOLIC [id number] 03:54:00* Test Item Value Reference Range Comments SODIUM (BEAKER) (test zent=987) 141 meq/L 136-145 POTASSIUM (BEAKER) (test zkpm=772) 4.1 meq/L 3.5-5.1 Specimen slightly hemolyzed CHLORIDE (BEAKER) (test lpyj=880) 110 meq/L 98-107 CO2 (BEAKER) (test dcss=898) 23 meq/L 22-29 BLOOD UREA NITROGEN (BEAKER) (test equq=969) 14 mg/dL 7-21 CREATININE (BEAKER) (test bsuh=515) 0.73 mg/dL 0.57-1.25 Specimen slightly hemolyzed GLUCOSE RANDOM (BEAKER) (test ijap=245) 79 mg/dL 70-105 CALCIUM (BEAKER) (test xofg=768) 9.0 mg/dL 8.4-10.2 EGFR (BEAKER) (test jrav=4344) 81 mL/min/1.73 sq m ESTIMATED GFR IS NOT ACCURATE CREATININE CLEARANCE IN PREDICTING GLOMERULAR FILTRATION RATE. ESTIMATED GFR IS NOT APPLICABLE FOR DIALYSIS PATIENTS. CBC W/PLT COUNT & AUTO [id number] 03:47:00* Test Item Value Reference Range Comments WHITE BLOOD CELL COUNT (BEAKER) (test vnyy=015) 13.1 K/ L 3.5-10.5 RED BLOOD CELL COUNT (BEAKER) (test svym=124) 3.08 M/ L 3.93-5.22 HEMOGLOBIN (BEAKER) (test qyej=306) 8.7 GM/DL 11.2-15.7 HEMATOCRIT (BEAKER) (test wtpg=683) 28.9 % 34.1-44.9 MEAN CORPUSCULAR VOLUME (BEAKER) (test ulcn=273) 93.8 fL 79.4-94.8 MEAN CORPUSCULAR HEMOGLOBIN (BEAKER) (test oaxw=540) 28.2 pg 25.6-32.2 MEAN CORPUSCULAR HEMOGLOBIN CONC (BEAKER) (test ejsr=485) 30.1 GM/DL 32.2-35.5 RED CELL DISTRIBUTION WIDTH (BEAKER) (test ikfy=435) 15.7 % 11.7-14.4 PLATELET COUNT (BEAKER) (test dioz=318) 298 K/CU MM 150-450 MEAN PLATELET VOLUME (BEAKER) (test jrqa=171) 10.7 fL 9.4-12.3 NUCLEATED RED BLOOD CELLS (BEAKER) (test gudt=636) 0 /100 WBC 0-0 NEUTROPHILS RELATIVE PERCENT (BEAKER) (test pjpe=338) 66 % LYMPHOCYTES RELATIVE PERCENT (BEAKER) (test wyee=234) 23 % MONOCYTES RELATIVE PERCENT (BEAKER) (test ulfz=291) 10 % EOSINOPHILS RELATIVE PERCENT (BEAKER) (test nzcn=881) 0 % BASOPHILS RELATIVE PERCENT (BEAKER) (test gdkx=620) 0 % NEUTROPHILS ABSOLUTE COUNT (BEAKER) (test lvxa=354) 8.63 K/ L 1.56-6.13 LYMPHOCYTES ABSOLUTE COUNT (BEAKER) (test ppru=245) 3.04 K/ L 1.18-3.74 MONOCYTES ABSOLUTE COUNT (BEAKER) (test hrtl=455) 1.30 K/ L 0.24-0.36 EOSINOPHILS ABSOLUTE COUNT (BEAKER) (test rndp=209) 0.04 K/ L 0.04-0.36 BASOPHILS ABSOLUTE COUNT (BEAKER) (test sqom=912) 0.03 K/ L 0.01-0.08 IMMATURE GRANULOCYTES-RELATIVE PERCENT (BEAKER) (test kcdv=7422) 1 % 0-1 POCT-GLUCOSE [id number] 21:18:00* Test Item Value Reference Range Comments POC-GLUCOSE METER (BEAKER) (test sgtn=2323) 391 mg/dL 70-110 TESTED AT [facility] [address] [place] [address] VANCOMYCIN LEVEL, [id number] 19:27:00* Test Item Value Reference Range Comments VANCOMYCIN TROUGH (BEAKER) (test hyrn=847) 11.2 ug/mL 10.0-20.0 BASIC METABOLIC [id number] 09:32:00* Test Item Value Reference Range Comments SODIUM (BEAKER) (test keet=572) 137 meq/L 136-145 POTASSIUM (BEAKER) (test qydh=529) 4.1 meq/L 3.5-5.1 CHLORIDE (BEAKER) (test munl=601) 108 meq/L 98-107 CO2 (BEAKER) (test lbet=018) 22 meq/L 22-29 BLOOD UREA NITROGEN (BEAKER) (test jziy=678) 15 mg/dL 7-21 CREATININE (BEAKER) (test xmee=290) 0.70 mg/dL 0.57-1.25 GLUCOSE RANDOM (BEAKER) (test bmvo=487) 117 mg/dL 70-105 CALCIUM (BEAKER) (test mgsk=489) 8.9 mg/dL 8.4-10.2 EGFR (BEAKER) (test mhbu=9738) 85 mL/min/1.73 sq m ESTIMATED GFR IS NOT ACCURATE CREATININE CLEARANCE IN PREDICTING GLOMERULAR FILTRATION RATE. ESTIMATED GFR IS NOT APPLICABLE FOR DIALYSIS PATIENTS. C-REACTIVE [id number] 09:32:00* Test Item Value Reference Range Comments C-REACTIVE PROTEIN (BEAKER) (test twns=008) 12.01 mg/dL 0.00-0.50 CBC (HEMOGRAM ONLY)2018-09-07 05:25:00* Test Item Value Reference Range Comments WHITE BLOOD CELL COUNT (BEAKER) (test ektr=767) 17.4 K/ L 3.5-10.5 RED BLOOD CELL COUNT (BEAKER) (test gsdr=993) 3.52 M/ L 3.93-5.22 HEMOGLOBIN (BEAKER) (test dylg=593) 10.2 GM/DL 11.2-15.7 HEMATOCRIT (BEAKER) (test frix=658) 32.2 % 34.1-44.9 MEAN CORPUSCULAR VOLUME (BEAKER) (test gvjy=028) 91.5 fL 79.4-94.8 MEAN CORPUSCULAR HEMOGLOBIN (BEAKER) (test iadq=167) 29.0 pg 25.6-32.2 MEAN CORPUSCULAR HEMOGLOBIN CONC (BEAKER) (test vcsy=039) 31.7 GM/DL 32.2-35.5 RED CELL DISTRIBUTION WIDTH (BEAKER) (test ufyy=468) 15.3 % 11.7-14.4 PLATELET COUNT (BEAKER) (test anfd=628) 336 K/CU MM 150-450 MEAN PLATELET VOLUME (BEAKER) (test ivma=152) 10.2 fL 9.4-12.3 NUCLEATED RED BLOOD CELLS (BEAKER) (test maoi=635) 0 /100 WBC 0-0 POCT-GLUCOSE [id number] 17:41:00* Test Item Value Reference Range Comments POC-GLUCOSE METER (BEAKER) (test svia=2536) 200 mg/dL 70-110 TESTED AT [facility] [address] [facility] [address] C-REACTIVE [id number] 14:38:00* Test Item Value Reference Range Comments C-REACTIVE PROTEIN (BEAKER) (test rjdd=702) 8.08 mg/dL 0.00-0.50 RAD, ELBOW, 3 VIEWS, [id number] 06:50:00Reason for exam:->JOINT SWELLING FINAL REPORT RAD, ELBOW, 3 VIEWS, RIGHT CLINICAL INDIC ATION: JOINT SWELLING COMPARISON: Left elbow radiograph 07/09/2018 FINDINGS: Thr ee views of the right elbow were obtained. There is generalized osteopenia. Ther e is diffuse soft tissue swelling about the elbow with a large elbow joint effus ion. There is osteolysis and deformity of the distal humerus and to a lesser ext ent the proximal radius and proximal ulna. There are multiple small calcific den sities about the elbow joint which may represent loose bodies. Findings suggest an inflammatory arthropathy. There is anterior dislocation of the distal humeru s with respect to the radius and ulna. There is no acute elbow fracture. There are small linear lucencies in the distal ulnar diaphysis which may represent vas cular channels however a nondisplaced fracture cannot be excluded IMPRESSION: Di ffuse soft tissue swelling about the elbow with a large elbow joint effusion. F indings suggest an inflammatory arthropathy. Elbow joint dislocation. No acute e lbow fracture. Small linear lucencies in the distal ulnar diaphysis which may re present vascular channels however a nondisplaced fracture cannot be excluded. Co rrelate clinically. Signed: Grayson Russ MDReport Verified Date/Time: 09/07/19 06:50:15 Reading Location: [facility] C013Y CT Body Reading Room [facility] y signed by: GRAYSON RUSS MD on 09/06/2018 06:50 AM [id number] 06:29:00* Test Item Value Reference Range Comments PROTIME (BEAKER) (test wbmm=132) 14.4 seconds 11.7-14.7 INR (BEAKER) (test rhvs=029) 1.1 <=5.9 PARTIAL THROMBOPLASTIN TIME (BEAKER) (test heim=396) 35.1 seconds 22.5-36.0 RECOMMENDED COUMADIN/WARFARIN INR THERAPY RANGESSTANDARD DOSE: 2.0 - 3.0 Inclu earl: PROPHYLAXIS for venous thrombosis, systemic embolization; TREATMENT for zahra ous thrombosis and/or pulmonary embolus.HIGH RISK: Target INR is 2.5-3.5 for pat ients with mechanical heart valves.CBC W/PLT COUNT & AUTO [id number] 05:15:00* Test Item Value Reference Range Comments WHITE BLOOD CELL COUNT (BEAKER) (test pyqm=260) 21.5 K/ L 3.5-10.5 RED BLOOD CELL COUNT (BEAKER) (test jnhq=459) 4.09 M/ L 3.93-5.22 HEMOGLOBIN (BEAKER) (test ynxj=511) 11.6 GM/DL 11.2-15.7 HEMATOCRIT (BEAKER) (test lbso=982) 38.1 % 34.1-44.9 MEAN CORPUSCULAR VOLUME (BEAKER) (test exra=362) 93.2 fL 79.4-94.8 MEAN CORPUSCULAR HEMOGLOBIN (BEAKER) (test cswz=360) 28.4 pg 25.6-32.2 MEAN CORPUSCULAR HEMOGLOBIN CONC (BEAKER) (test buja=068) 30.4 GM/DL 32.2-35.5 RED CELL DISTRIBUTION WIDTH (BEAKER) (test wncr=068) 15.2 % 11.7-14.4 PLATELET COUNT (BEAKER) (test wbkq=232) 329 K/CU MM 150-450 MEAN PLATELET VOLUME (BEAKER) (test jhae=002) 10.2 fL 9.4-12.3 NUCLEATED RED BLOOD CELLS (BEAKER) (test khri=453) 0 /100 WBC 0-0 NEUTROPHILS RELATIVE PERCENT (BEAKER) (test xama=275) 81 % LYMPHOCYTES RELATIVE PERCENT (BEAKER) (test ofhr=038) 11 % MONOCYTES RELATIVE PERCENT (BEAKER) (test xamw=773) 7 % EOSINOPHILS RELATIVE PERCENT (BEAKER) (test zzrr=206) 1 % BASOPHILS RELATIVE PERCENT (BEAKER) (test kfww=754) 0 % NEUTROPHILS ABSOLUTE COUNT (BEAKER) (test ucfu=268) 17.41 K/ L 1.56-6.13 LYMPHOCYTES ABSOLUTE COUNT (BEAKER) (test lela=112) 2.29 K/ L 1.18-3.74 MONOCYTES ABSOLUTE COUNT (BEAKER) (test nilq=092) 1.39 K/ L 0.24-0.36 EOSINOPHILS ABSOLUTE COUNT (BEAKER) (test wcvy=830) 0.12 K/ L 0.04-0.36 BASOPHILS ABSOLUTE COUNT (BEAKER) (test bses=521) 0.07 K/ L 0.01-0.08 IMMATURE GRANULOCYTES-RELATIVE PERCENT (BEAKER) (test rtqj=7066) 1 % 0-1 BASIC METABOLIC [id number] 05:15:00* Test Item Value Reference Range Comments SODIUM (BEAKER) (test jnnc=889) 140 meq/L 136-145 POTASSIUM (BEAKER) (test ndll=307) 4.0 meq/L 3.5-5.1 Specimen slightly hemolyzed CHLORIDE (BEAKER) (test hnum=698) 109 meq/L 98-107 CO2 (BEAKER) (test vont=262) 19 meq/L 22-29 BLOOD UREA NITROGEN (BEAKER) (test lrbk=891) 19 mg/dL 7-21 CREATININE (BEAKER) (test uzct=959) 0.76 mg/dL 0.57-1.25 Specimen slightly hemolyzed GLUCOSE RANDOM (BEAKER) (test alod=445) 165 mg/dL 70-105 CALCIUM (BEAKER) (test fsit=259) 9.6 mg/dL 8.4-10.2 EGFR (BEAKER) (test qzyy=5410) 77 mL/min/1.73 sq m ESTIMATED GFR IS NOT ACCURATE CREATININE CLEARANCE IN PREDICTING GLOMERULAR FILTRATION RATE. ESTIMATED GFR IS NOT APPLICABLE FOR DIALYSIS PATIENTS. AFB CULTURE + [id number] 12:54:00* Test Item Value Reference Range Comments CULTURE (BEAKER) (test vaax=8494) No acid-fast bacilli isolated in 42 days AFB SMEAR (BEAKER) (test gsqb=296) No acid fast bacilli seen AFB CULTURE + [id number] 12:54:00* Test Item Value Reference Range Comments CULTURE (BEAKER) (test vyvh=6216) No acid-fast bacilli isolated in 42 days AFB SMEAR (BEAKER) (test dpdf=972) No acid fast bacilli seen AFB CULTURE + [id number] 12:54:00* Test Item Value Reference Range Comments CULTURE (BEAKER) (test pprc=0129) No acid-fast bacilli isolated in 42 days AFB SMEAR (BEAKER) (test rerk=964) No acid fast bacilli seen FUNGUS CULTURE + [id number] 16:41:00* Test Item Value Reference Range Comments CULTURE (BEAKER) (test wmev=6121) No fungus isolated in 28 days FUNGUS SMEAR (BEAKER) (test xoto=6371) No fungi seen FUNGUS CULTURE + [id number] 16:41:00* Test Item Value Reference Range Comments CULTURE (BEAKER) (test vren=5344) No fungus isolated in 28 days FUNGUS SMEAR (BEAKER) (test juse=2546) No fungi seen FUNGUS CULTURE + [id number] 16:41:00* Test Item Value Reference Range Comments CULTURE (BEAKER) (test jthy=8483) No fungus isolated in 28 days FUNGUS SMEAR (BEAKER) (test bicr=6432) No fungi seen FUNGUS CULTURE + [id number] 16:41:00* Test Item Value Reference Range Comments CULTURE (BEAKER) (test soss=6293) No fungus isolated in 28 days FUNGUS SMEAR (BEAKER) (test mgyd=1624) No fungi seen POCT-GLUCOSE [id number] 17:59:00* Test Item Value Reference Range Comments POC-GLUCOSE METER (BEAKER) (test dxzf=1868) 206 mg/dL 70-110 TESTED AT [address] [address] POCT-GLUCOSE [id number] 12:38:00* Test Item Value Reference Range Comments POC-GLUCOSE METER (BEAKER) (test qtln=9502) 185 mg/dL 70-110 TESTED AT [address] [address] VANCOMYCIN LEVEL, [id number] 10:13:00* Test Item Value Reference Range Comments VANCOMYCIN TROUGH (BEAKER) (test rgyz=390) 13.2 ug/mL 10.0-20.0 POCT-GLUCOSE [id number] 08:07:00* Test Item Value Reference Range Comments POC-GLUCOSE METER (BEAKER) (test xsbt=3389) 90 mg/dL 70-110 TESTED AT [address] [address] [id number] 06:41:00* Test Item Value Reference Range Comments PHOSPHORUS (BEAKER) (test bkhb=992) 3.4 mg/dL 2.3-4.7 [id number] 06:41:00* Test Item Value Reference Range Comments MAGNESIUM (BEAKER) (test tryr=933) 1.7 mg/dL 1.6-2.6 BASIC METABOLIC [id number] 06:41:00* Test Item Value Reference Range Comments SODIUM (BEAKER) (test rydw=903) 140 meq/L 136-145 POTASSIUM (BEAKER) (test evcr=270) 4.2 meq/L 3.5-5.1 CHLORIDE (BEAKER) (test ywgs=215) 107 meq/L 98-107 CO2 (BEAKER) (test powq=137) 27 meq/L 22-29 BLOOD UREA NITROGEN (BEAKER) (test hqmr=367) 11 mg/dL 7-21 CREATININE (BEAKER) (test opwt=486) 0.66 mg/dL 0.57-1.25 GLUCOSE RANDOM (BEAKER) (test xttd=637) 84 mg/dL 70-105 CALCIUM (BEAKER) (test tygk=169) 8.8 mg/dL 8.4-10.2 EGFR (BEAKER) (test rukj=1954) 91 mL/min/1.73 sq m ESTIMATED GFR IS NOT ACCURATE CREATININE CLEARANCE IN PREDICTING GLOMERULAR FILTRATION RATE. ESTIMATED GFR IS NOT APPLICABLE FOR DIALYSIS PATIENTS. CREATINE KINASE (CK)2018-07-11 06:41:00* Test Item Value Reference Range Comments CREATINE KINASE TOTAL (BEAKER) (test bzpp=537) 323 U/L 29-200 PROTHROMBIN [id number] 06:33:00* Test Item Value Reference Range Comments PROTIME (BEAKER) (test zyuy=441) 21.3 seconds 11.7-14.7 INR (BEAKER) (test fvui=209) 1.8 <=5.9 RECOMMENDED COUMADIN/WARFARIN INR THERAPY RANGESSTANDARD DOSE: 2.0 - 3.0 Inclu earl: PROPHYLAXIS for venous thrombosis, systemic embolization; TREATMENT for zahra ous thrombosis and/or pulmonary embolus.HIGH RISK: Target INR is 2.5-3.5 for pat ients with mechanical heart valves.While on warfarin.CBC W/PLT COUNT & AUTO [id number] 06:29:00* Test Item Value Reference Range Comments WHITE BLOOD CELL COUNT (BEAKER) (test hkrj=545) 8.9 K/ L 3.5-10.5 RED BLOOD CELL COUNT (BEAKER) (test xwko=962) 2.92 M/ L 3.93-5.22 HEMOGLOBIN (BEAKER) (test uvkk=439) 7.8 GM/DL 11.2-15.7 HEMATOCRIT (BEAKER) (test onvk=707) 25.7 % 34.1-44.9 MEAN CORPUSCULAR VOLUME (BEAKER) (test mlto=480) 88.0 fL 79.4-94.8 MEAN CORPUSCULAR HEMOGLOBIN (BEAKER) (test sjah=840) 26.7 pg 25.6-32.2 MEAN CORPUSCULAR HEMOGLOBIN CONC (BEAKER) (test jest=933) 30.4 GM/DL 32.2-35.5 RED CELL DISTRIBUTION WIDTH (BEAKER) (test upuf=529) 18.6 % 11.7-14.4 PLATELET COUNT (BEAKER) (test rcqe=905) 393 K/CU MM 150-450 MEAN PLATELET VOLUME (BEAKER) (test narp=942) 11.2 fL 9.4-12.3 NUCLEATED RED BLOOD CELLS (BEAKER) (test skvg=357) 0 /100 WBC 0-0 NEUTROPHILS RELATIVE PERCENT (BEAKER) (test pric=864) 65 % LYMPHOCYTES RELATIVE PERCENT (BEAKER) (test pzng=021) 20 % MONOCYTES RELATIVE PERCENT (BEAKER) (test rnqk=121) 13 % EOSINOPHILS RELATIVE PERCENT (BEAKER) (test rcxn=695) 1 % BASOPHILS RELATIVE PERCENT (BEAKER) (test duti=112) 0 % NEUTROPHILS ABSOLUTE COUNT (BEAKER) (test jqxk=476) 5.76 K/ L 1.56-6.13 LYMPHOCYTES ABSOLUTE COUNT (BEAKER) (test yltl=587) 1.76 K/ L 1.18-3.74 MONOCYTES ABSOLUTE COUNT (BEAKER) (test lewm=605) 1.19 K/ L 0.24-0.36 EOSINOPHILS ABSOLUTE COUNT (BEAKER) (test ubwv=798) 0.09 K/ L 0.04-0.36 BASOPHILS ABSOLUTE COUNT (BEAKER) (test oqwl=266) 0.03 K/ L 0.01-0.08 IMMATURE GRANULOCYTES-RELATIVE PERCENT (BEAKER) (test kyhm=3208) 1 % 0-1 POCT-GLUCOSE [id number] 05:45:00* Test Item Value Reference Range Comments POC-GLUCOSE METER (BEAKER) (test tkdj=5370) 276 mg/dL 70-110 TESTED AT [place] [id number] [facility] [id number] POCT-GLUCOSE [id number] 17:36:00* Test Item Value Reference Range Comments POC-GLUCOSE METER (BEAKER) (test fmbb=7335) 241 mg/dL 70-110 TESTED AT [address] [address] POCT-GLUCOSE [id number] 11:59:00* Test Item Value Reference Range Comments POC-GLUCOSE METER (BEAKER) (test ntwk=6508) 225 mg/dL 70-110 TESTED AT [address] [address] POCT-GLUCOSE [id number] 08:21:00* Test Item Value Reference Range Comments POC-GLUCOSE METER (BEAKER) (test dlkd=6752) 94 mg/dL 70-110 TESTED AT [address] [address] PROTHROMBIN [id number] 08:14:00* Test Item Value Reference Range Comments PROTIME (BEAKER) (test bjap=832) 18.8 seconds 11.7-14.7 INR (BEAKER) (test cmvt=021) 1.5 <=5.9 RECOMMENDED COUMADIN/WARFARIN INR THERAPY RANGESSTANDARD DOSE: 2.0 - 3.0 Inclu earl: PROPHYLAXIS for venous thrombosis, systemic embolization; TREATMENT for zahra ous thrombosis and/or pulmonary embolus.HIGH RISK: Target INR is 2.5-3.5 for pat ients with mechanical heart valves.This is a repeat to confirmMAGNESIUM 2018-07-10 06:28:00* Test Item Value Reference Range Comments MAGNESIUM (BEAKER) (test fkvw=730) 1.6 mg/dL 1.6-2.6 Specimen slightly hemolyzed [id number] 06:28:00* Test Item Value Reference Range Comments PHOSPHORUS (BEAKER) (test hznd=135) 2.8 mg/dL 2.3-4.7 Specimen slightly hemolyzed BASIC METABOLIC [id number] 06:28:00* Test Item Value Reference Range Comments SODIUM (BEAKER) (test lwau=506) 141 meq/L 136-145 POTASSIUM (BEAKER) (test kvfp=202) 4.1 meq/L 3.5-5.1 Specimen slightly hemolyzed CHLORIDE (BEAKER) (test aefn=257) 110 meq/L 98-107 CO2 (BEAKER) (test qepz=600) 24 meq/L 22-29 BLOOD UREA NITROGEN (BEAKER) (test kjir=257) 7 mg/dL 7-21 CREATININE (BEAKER) (test jjdv=510) 0.60 mg/dL 0.57-1.25 Specimen slightly hemolyzed GLUCOSE RANDOM (BEAKER) (test yxpn=179) 74 mg/dL 70-105 CALCIUM (BEAKER) (test qgag=735) 8.4 mg/dL 8.4-10.2 EGFR (BEAKER) (test vfyj=4914) 102 mL/min/1.73 sq m ESTIMATED GFR IS NOT ACCURATE CREATININE CLEARANCE IN PREDICTING GLOMERULAR FILTRATION RATE. ESTIMATED GFR IS NOT APPLICABLE FOR DIALYSIS PATIENTS. CREATINE KINASE (CK)2018-07-10 06:28:00* Test Item Value Reference Range Comments CREATINE KINASE TOTAL (BEAKER) (test sstm=019) 810 U/L 29-200 PROTHROMBIN TIME/[id number] 06:18:00* Test Item Value Reference Range Comments PROTIME (BEAKER) (test tyup=401) 17.5 seconds 11.7-14.7 INR (BEAKER) (test zgxd=622) 1.4 <=5.9 RECOMMENDED COUMADIN/WARFARIN INR THERAPY RANGESSTANDARD DOSE: 2.0 - 3.0 Inclu earl: PROPHYLAXIS for venous thrombosis, systemic embolization; TREATMENT for zahra ous thrombosis and/or pulmonary embolus.HIGH RISK: Target INR is 2.5-3.5 for pat ients with mechanical heart valves.While on warfarin.CBC W/PLT COUNT & AUTO [id number] 06:08:00* Test Item Value Reference Range Comments WHITE BLOOD CELL COUNT (BEAKER) (test cuuu=958) 7.4 K/ L 3.5-10.5 RED BLOOD CELL COUNT (BEAKER) (test ooug=018) 3.15 M/ L 3.93-5.22 HEMOGLOBIN (BEAKER) (test cfkw=668) 8.3 GM/DL 11.2-15.7 HEMATOCRIT (BEAKER) (test qlke=392) 27.3 % 34.1-44.9 MEAN CORPUSCULAR VOLUME (BEAKER) (test jnvv=487) 86.7 fL 79.4-94.8 MEAN CORPUSCULAR HEMOGLOBIN (BEAKER) (test auqp=366) 26.3 pg 25.6-32.2 MEAN CORPUSCULAR HEMOGLOBIN CONC (BEAKER) (test dmqa=995) 30.4 GM/DL 32.2-35.5 RED CELL DISTRIBUTION WIDTH (BEAKER) (test qtep=899) 19.0 % 11.7-14.4 PLATELET COUNT (BEAKER) (test lhbg=230) 439 K/CU MM 150-450 MEAN PLATELET VOLUME (BEAKER) (test esud=473) 11.2 fL 9.4-12.3 NUCLEATED RED BLOOD CELLS (BEAKER) (test gjad=360) 0 /100 WBC 0-0 NEUTROPHILS RELATIVE PERCENT (BEAKER) (test iwhd=167) 64 % LYMPHOCYTES RELATIVE PERCENT (BEAKER) (test rxxp=942) 22 % MONOCYTES RELATIVE PERCENT (BEAKER) (test uxiy=782) 13 % EOSINOPHILS RELATIVE PERCENT (BEAKER) (test pvra=500) 0 % BASOPHILS RELATIVE PERCENT (BEAKER) (test yjvn=272) 0 % NEUTROPHILS ABSOLUTE COUNT (BEAKER) (test gasx=773) 4.76 K/ L 1.56-6.13 LYMPHOCYTES ABSOLUTE COUNT (BEAKER) (test obej=648) 1.64 K/ L 1.18-3.74 MONOCYTES ABSOLUTE COUNT (BEAKER) (test xqha=780) 0.95 K/ L 0.24-0.36 EOSINOPHILS ABSOLUTE COUNT (BEAKER) (test uywe=108) 0.03 K/ L 0.04-0.36 BASOPHILS ABSOLUTE COUNT (BEAKER) (test kxfh=095) 0.01 K/ L 0.01-0.08 IMMATURE GRANULOCYTES-RELATIVE PERCENT (BEAKER) (test lsgm=9913) 1 % 0-1 POCT-GLUCOSE [id number] 23:32:00* Test Item Value Reference Range Comments POC-GLUCOSE METER (BEAKER) (test owrl=2676) 204 mg/dL 70-110 TESTED AT [facility] [address] [address] RAD, ELBOW, 3 VIEWS, [id number] 20:56:00Reason for exam:->Fall and increased R elbow painFINAL REPORT TECHNIQUE: Two views of the right elbow. INDICATION: Fall and increased R elbow pain. COMPARISON: Elbow radiograph from 06/22/2018. FINDINGS:There is likely dislocation of the distal humerus in relation to the trochlea. This distal humerus is malformed with a moderate-sized joint effusion which and has decreased in size compared to prior. Calcifications around the elbow may be osseous bodies in the joint. The ulna and radial head are also malformed. 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 The joint effusion has decreased compared to the prior examination. The calcifications around elbow may be osseous bodies. Signed: Christian Giron Verified Date/Time: 07/09/2018 20:56:45 Reading Location: [facility] Consult Reading Room -GLUCOSE [id number] 18:04:00* Test Item Value Reference Range Comments POC-GLUCOSE METER (BEAKER) (test slil=1723) 232 mg/dL 70-110 TESTED AT [facility] [address] [address] POCT-GLUCOSE [id number] 13:45:00* Test Item Value Reference Range Comments POC-GLUCOSE METER (BEAKER) (test csms=9001) 224 mg/dL 70-110 TESTED AT [facility] [address] [address] POCT-GLUCOSE [id number] 08:44:00* Test Item Value Reference Range Comments POC-GLUCOSE METER (BEAKER) (test fxwp=5509) 143 mg/dL 70-110 TESTED AT [place] [id number] [address] [id number] 08:34:00* Test Item Value Reference Range Comments PARTIAL THROMBOPLASTIN TIME (BEAKER) (test zmfu=205) 69.8 seconds 22.5-36.0 While on warfarin.[id number] 07:57:00* Test Item Value Reference Range Comments PHOSPHORUS (BEAKER) (test xado=345) 3.0 mg/dL 2.3-4.7 [id number] 07:57:00* Test Item Value Reference Range Comments MAGNESIUM (BEAKER) (test vkyb=296) 1.9 mg/dL 1.6-2.6 BASIC METABOLIC [id number] 07:57:00* Test Item Value Reference Range Comments SODIUM (BEAKER) (test caof=475) 140 meq/L 136-145 POTASSIUM (BEAKER) (test wdph=922) 3.7 meq/L 3.5-5.1 CHLORIDE (BEAKER) (test boaf=001) 110 meq/L 98-107 CO2 (BEAKER) (test saey=924) 24 meq/L 22-29 BLOOD UREA NITROGEN (BEAKER) (test akwz=999) 8 mg/dL 7-21 CREATININE (BEAKER) (test rtmv=316) 0.63 mg/dL 0.57-1.25 GLUCOSE RANDOM (BEAKER) (test ymsu=268) 126 mg/dL 70-105 CALCIUM (BEAKER) (test omrp=905) 8.1 mg/dL 8.4-10.2 EGFR (BEAKER) (test lutm=5833) 96 mL/min/1.73 sq m ESTIMATED GFR IS NOT ACCURATE CREATININE CLEARANCE IN PREDICTING GLOMERULAR FILTRATION RATE. ESTIMATED GFR IS NOT APPLICABLE FOR DIALYSIS PATIENTS. CREATINE KINASE (CK)2018-07-09 07:57:00* Test Item Value Reference Range Comments CREATINE KINASE TOTAL (BEAKER) (test ovqt=225) 1078 U/L 29-200 PROTHROMBIN TIME/[id number] 07:52:00* Test Item Value Reference Range Comments PROTIME (BEAKER) (test wehi=834) 24.7 seconds 11.7-14.7 INR (BEAKER) (test ethj=178) 2.2 <=5.9 RECOMMENDED COUMADIN/WARFARIN INR THERAPY RANGESSTANDARD DOSE: 2.0 - 3.0 Inclu earl: PROPHYLAXIS for venous thrombosis, systemic embolization; TREATMENT for zahra ous thrombosis and/or pulmonary embolus.HIGH RISK: Target INR is 2.5-3.5 for pat ients with mechanical heart valves.While on warfarin.CBC W/PLT COUNT & AUTO [id number] 07:42:00* Test Item Value Reference Range Comments WHITE BLOOD CELL COUNT (BEAKER) (test qtmv=280) 7.8 K/ L 3.5-10.5 RED BLOOD CELL COUNT (BEAKER) (test tngr=087) 3.27 M/ L 3.93-5.22 HEMOGLOBIN (BEAKER) (test btvh=951) 8.7 GM/DL 11.2-15.7 HEMATOCRIT (BEAKER) (test qnxh=542) 28.0 % 34.1-44.9 MEAN CORPUSCULAR VOLUME (BEAKER) (test fakw=791) 85.6 fL 79.4-94.8 MEAN CORPUSCULAR HEMOGLOBIN (BEAKER) (test qqxe=932) 26.6 pg 25.6-32.2 MEAN CORPUSCULAR HEMOGLOBIN CONC (BEAKER) (test mtko=190) 31.1 GM/DL 32.2-35.5 RED CELL DISTRIBUTION WIDTH (BEAKER) (test ykxo=321) 19.2 % 11.7-14.4 PLATELET COUNT (BEAKER) (test gurr=465) 431 K/CU MM 150-450 MEAN PLATELET VOLUME (BEAKER) (test odtr=735) 10.8 fL 9.4-12.3 NUCLEATED RED BLOOD CELLS (BEAKER) (test zwmz=113) 0 /100 WBC 0-0 NEUTROPHILS RELATIVE PERCENT (BEAKER) (test kdkt=802) 69 % LYMPHOCYTES RELATIVE PERCENT (BEAKER) (test vqsy=149) 17 % MONOCYTES RELATIVE PERCENT (BEAKER) (test akia=374) 13 % EOSINOPHILS RELATIVE PERCENT (BEAKER) (test rhzm=892) 1 % BASOPHILS RELATIVE PERCENT (BEAKER) (test ally=132) 0 % NEUTROPHILS ABSOLUTE COUNT (BEAKER) (test bymb=688) 5.36 K/ L 1.56-6.13 LYMPHOCYTES ABSOLUTE COUNT (BEAKER) (test ndcj=720) 1.34 K/ L 1.18-3.74 MONOCYTES ABSOLUTE COUNT (BEAKER) (test gfdc=643) 0.98 K/ L 0.24-0.36 EOSINOPHILS ABSOLUTE COUNT (BEAKER) (test ufgh=392) 0.06 K/ L 0.04-0.36 BASOPHILS ABSOLUTE COUNT (BEAKER) (test wwje=691) 0.02 K/ L 0.01-0.08 IMMATURE GRANULOCYTES-RELATIVE PERCENT (BEAKER) (test aicf=0669) 1 % 0-1 POCT-GLUCOSE [id number] 21:59:00* Test Item Value Reference Range Comments POC-GLUCOSE METER (BEAKER) (test rgti=0137) 190 mg/dL 70-110 TESTED AT [facility] [address] [address] [id number] 16:59:00* Test Item Value Reference Range Comments ACTIVATED CLOTTING TIME (BEAKER) (test wxgq=955) 263 sec TESTED AT [place] [id number] [address] POCT-GLUCOSE [id number] 13:39:00* Test Item Value Reference Range Comments POC-GLUCOSE METER (BEAKER) (test unxj=9663) 108 mg/dL 70-110 TESTED AT [address] [address] [id number] 09:20:00* Test Item Value Reference Range Comments MAGNESIUM (BEAKER) (test alxy=589) 1.1 mg/dL 1.6-2.6 [id number] 08:21:00* Test Item Value Reference Range Comments PARTIAL THROMBOPLASTIN TIME (BEAKER) (test vxrf=334) 48.2 seconds 22.5-36.0 [id number] 05:47:00* Test Item Value Reference Range Comments PARTIAL THROMBOPLASTIN TIME (BEAKER) (test okzw=885) 136.5 seconds 22.5-36.0 While on warfarin.[id number] 05:15:00* Test Item Value Reference Range Comments PHOSPHORUS (BEAKER) (test mego=892) 3.0 mg/dL 2.3-4.7 BASIC METABOLIC [id number] 05:15:00* Test Item Value Reference Range Comments SODIUM (BEAKER) (test dplg=454) 140 meq/L 136-145 POTASSIUM (BEAKER) (test xybo=686) 3.3 meq/L 3.5-5.1 CHLORIDE (BEAKER) (test geph=406) 112 meq/L 98-107 CO2 (BEAKER) (test jnmt=500) 22 meq/L 22-29 BLOOD UREA NITROGEN (BEAKER) (test nknb=443) 7 mg/dL 7-21 CREATININE (BEAKER) (test mocc=042) 0.66 mg/dL 0.57-1.25 GLUCOSE RANDOM (BEAKER) (test ebbe=622) 70 mg/dL 70-105 CALCIUM (BEAKER) (test uzam=062) 8.0 mg/dL 8.4-10.2 EGFR (BEAKER) (test dbty=0367) 91 mL/min/1.73 sq m ESTIMATED GFR IS NOT ACCURATE CREATININE CLEARANCE IN PREDICTING GLOMERULAR FILTRATION RATE. ESTIMATED GFR IS NOT APPLICABLE FOR DIALYSIS PATIENTS. PROTHROMBIN TIME/[id number] 05:00:00* Test Item Value Reference Range Comments PROTIME (BEAKER) (test nzqb=570) 20.2 seconds 11.7-14.7 INR (BEAKER) (test cidu=825) 1.7 <=5.9 RECOMMENDED COUMADIN/WARFARIN INR THERAPY RANGESSTANDARD DOSE: 2.0 - 3.0 Inclu earl: PROPHYLAXIS for venous thrombosis, systemic embolization; TREATMENT for zahra ous thrombosis and/or pulmonary embolus.HIGH RISK: Target INR is 2.5-3.5 for pat ients with mechanical heart valves.While on warfarin.CBC W/PLT COUNT & AUTO [id number] 04:48:00* Test Item Value Reference Range Comments WHITE BLOOD CELL COUNT (BEAKER) (test togm=231) 7.4 K/ L 3.5-10.5 RED BLOOD CELL COUNT (BEAKER) (test bpgt=780) 3.16 M/ L 3.93-5.22 HEMOGLOBIN (BEAKER) (test gjzf=671) 8.4 GM/DL 11.2-15.7 HEMATOCRIT (BEAKER) (test jadc=657) 26.9 % 34.1-44.9 MEAN CORPUSCULAR VOLUME (BEAKER) (test jsto=041) 85.1 fL 79.4-94.8 MEAN CORPUSCULAR HEMOGLOBIN (BEAKER) (test goev=929) 26.6 pg 25.6-32.2 MEAN CORPUSCULAR HEMOGLOBIN CONC (BEAKER) (test zknt=503) 31.2 GM/DL 32.2-35.5 RED CELL DISTRIBUTION WIDTH (BEAKER) (test lmcx=338) 18.8 % 11.7-14.4 PLATELET COUNT (BEAKER) (test stow=477) 398 K/CU MM 150-450 MEAN PLATELET VOLUME (BEAKER) (test vxvu=106) 10.7 fL 9.4-12.3 NUCLEATED RED BLOOD CELLS (BEAKER) (test lwxg=077) 0 /100 WBC 0-0 NEUTROPHILS RELATIVE PERCENT (BEAKER) (test jwxg=276) 67 % LYMPHOCYTES RELATIVE PERCENT (BEAKER) (test xnsa=202) 20 % MONOCYTES RELATIVE PERCENT (BEAKER) (test ugsu=410) 12 % EOSINOPHILS RELATIVE PERCENT (BEAKER) (test tlid=333) 1 % BASOPHILS RELATIVE PERCENT (BEAKER) (test lnwu=632) 0 % NEUTROPHILS ABSOLUTE COUNT (BEAKER) (test zzvz=323) 4.99 K/ L 1.56-6.13 LYMPHOCYTES ABSOLUTE COUNT (BEAKER) (test loih=696) 1.45 K/ L 1.18-3.74 MONOCYTES ABSOLUTE COUNT (BEAKER) (test pabw=518) 0.86 K/ L 0.24-0.36 EOSINOPHILS ABSOLUTE COUNT (BEAKER) (test gerc=322) 0.07 K/ L 0.04-0.36 BASOPHILS ABSOLUTE COUNT (BEAKER) (test wtcf=671) 0.02 K/ L 0.01-0.08 IMMATURE GRANULOCYTES-RELATIVE PERCENT (BEAKER) (test yjzn=0361) 1 % 0-1 POCT-GLUCOSE [id number] 23:39:00* Test Item Value Reference Range Comments POC-GLUCOSE METER (BEAKER) (test ayat=6104) 110 mg/dL 70-110 TESTED AT [place] [address] [id number] 21:43:00* Test Item Value Reference Range Comments PARTIAL THROMBOPLASTIN TIME (BEAKER) (test dpaf=446) 89.5 seconds 22.5-36.0 [id number] 17:33:00* Test Item Value Reference Range Comments PHOSPHORUS (BEAKER) (test wvls=572) 3.2 mg/dL 2.3-4.7 HEMOGLOBIN AND [id number] 16:05:00* Test Item Value Reference Range Comments HEMOGLOBIN (BEAKER) (test cjis=060) 9.4 GM/DL 11.2-15.7 HEMATOCRIT (BEAKER) (test uone=918) 29.6 % 34.1-44.9 POCT-GLUCOSE [id number] 16:03:00* Test Item Value Reference Range Comments POC-GLUCOSE METER (BEAKER) (test hjja=7410) 259 mg/dL 70-110 TESTED AT [address] [address] [id number] 14:14:00* Test Item Value Reference Range Comments PARTIAL THROMBOPLASTIN TIME (BEAKER) (test pjnj=208) 47.8 seconds 22.5-36.0 [id number] 11:51:00* Test Item Value Reference Range Comments PARTIAL THROMBOPLASTIN TIME (BEAKER) (test ixpy=291) 135.2 seconds 22.5-36.0 POCT-GLUCOSE [id number] 11:40:00* Test Item Value Reference Range Comments POC-GLUCOSE METER (BEAKER) (test nfov=4715) 226 mg/dL 70-110 TESTED AT [facility] [address] [address] POCT-GLUCOSE [id number] 07:59:00* Test Item Value Reference Range Comments POC-GLUCOSE METER (BEAKER) (test osoy=0820) 99 mg/dL 70-110 TESTED AT [place] [id number] [address] [id number] 06:26:00* Test Item Value Reference Range Comments PHOSPHORUS (BEAKER) (test afyn=593) 3.2 mg/dL 2.3-4.7 BASIC METABOLIC [id number] 06:26:00* Test Item Value Reference Range Comments SODIUM (BEAKER) (test cjye=434) 140 meq/L 136-145 POTASSIUM (BEAKER) (test fhhu=687) 3.5 meq/L 3.5-5.1 CHLORIDE (BEAKER) (test zhxx=426) 114 meq/L 98-107 CO2 (BEAKER) (test ngpz=274) 20 meq/L 22-29 BLOOD UREA NITROGEN (BEAKER) (test jyix=337) 7 mg/dL 7-21 CREATININE (BEAKER) (test fxsc=817) 0.62 mg/dL 0.57-1.25 GLUCOSE RANDOM (BEAKER) (test pzfu=653) 96 mg/dL 70-105 CALCIUM (BEAKER) (test wnkz=511) 8.0 mg/dL 8.4-10.2 EGFR (BEAKER) (test eytk=1315) 98 mL/min/1.73 sq m ESTIMATED GFR IS NOT ACCURATE CREATININE CLEARANCE IN PREDICTING GLOMERULAR FILTRATION RATE. ESTIMATED GFR IS NOT APPLICABLE FOR DIALYSIS PATIENTS. [id number] 05:36:00* Test Item Value Reference Range Comments PARTIAL THROMBOPLASTIN TIME (BEAKER) (test hlkm=871) 84.7 seconds 22.5-36.0 While on warfarin.PROTHROMBIN TIME/[id number] 05:34:00* Test Item Value Reference Range Comments PROTIME (BEAKER) (test hano=147) 14.2 seconds 11.7-14.7 INR (BEAKER) (test ghxt=592) 1.1 <=5.9 RECOMMENDED COUMADIN/WARFARIN INR THERAPY RANGESSTANDARD DOSE: 2.0 - 3.0 Inclu earl: PROPHYLAXIS for venous thrombosis, systemic embolization; TREATMENT for zahra ous thrombosis and/or pulmonary embolus.HIGH RISK: Target INR is 2.5-3.5 for pat ients with mechanical heart valves.While on warfarin.CBC W/PLT COUNT & AUTO [id number] 05:05:00* Test Item Value Reference Range Comments WHITE BLOOD CELL COUNT (BEAKER) (test pukw=157) 7.2 K/ L 3.5-10.5 RED BLOOD CELL COUNT (BEAKER) (test mlok=191) 2.69 M/ L 3.93-5.22 HEMOGLOBIN (BEAKER) (test iisw=108) 7.4 GM/DL 11.2-15.7 HEMATOCRIT (BEAKER) (test eapm=319) 23.7 % 34.1-44.9 MEAN CORPUSCULAR VOLUME (BEAKER) (test zpyn=804) 88.1 fL 79.4-94.8 MEAN CORPUSCULAR HEMOGLOBIN (BEAKER) (test nuru=032) 27.5 pg 25.6-32.2 MEAN CORPUSCULAR HEMOGLOBIN CONC (BEAKER) (test jimh=893) 31.2 GM/DL 32.2-35.5 RED CELL DISTRIBUTION WIDTH (BEAKER) (test rqye=495) 17.4 % 11.7-14.4 PLATELET COUNT (BEAKER) (test utnb=708) 431 K/CU MM 150-450 MEAN PLATELET VOLUME (BEAKER) (test mjsw=471) 10.8 fL 9.4-12.3 NUCLEATED RED BLOOD CELLS (BEAKER) (test zxlj=833) 0 /100 WBC 0-0 NEUTROPHILS RELATIVE PERCENT (BEAKER) (test fhij=142) 68 % LYMPHOCYTES RELATIVE PERCENT (BEAKER) (test beks=565) 20 % MONOCYTES RELATIVE PERCENT (BEAKER) (test bsey=474) 12 % EOSINOPHILS RELATIVE PERCENT (BEAKER) (test amcj=680) 0 % BASOPHILS RELATIVE PERCENT (BEAKER) (test vdjw=190) 0 % NEUTROPHILS ABSOLUTE COUNT (BEAKER) (test yyar=501) 4.86 K/ L 1.56-6.13 LYMPHOCYTES ABSOLUTE COUNT (BEAKER) (test fyko=086) 1.42 K/ L 1.18-3.74 MONOCYTES ABSOLUTE COUNT (BEAKER) (test xslv=365) 0.85 K/ L 0.24-0.36 EOSINOPHILS ABSOLUTE COUNT (BEAKER) (test dqzc=196) 0.02 K/ L 0.04-0.36 BASOPHILS ABSOLUTE COUNT (BEAKER) (test qkzi=976) 0.02 K/ L 0.01-0.08 IMMATURE GRANULOCYTES-RELATIVE PERCENT (BEAKER) (test ihhe=3040) 0 % 0-1 POCT-GLUCOSE [id number] 01:27:00* Test Item Value Reference Range Comments POC-GLUCOSE METER (BEAKER) (test sfqq=2959) 218 mg/dL 70-110 TESTED AT [place] [address] [id number] 21:19:00* Test Item Value Reference Range Comments PARTIAL THROMBOPLASTIN TIME (BEAKER) (test oeng=197) 107.8 seconds 22.5-36.0 POCT-GLUCOSE [id number] 17:42:00* Test Item Value Reference Range Comments POC-GLUCOSE METER (BEAKER) (test jikg=0600) 183 mg/dL 70-110 TESTED AT [address] [address] POCT-GLUCOSE [id number] 13:36:00* Test Item Value Reference Range Comments POC-GLUCOSE METER (BEAKER) (test eysk=1796) 168 mg/dL 70-110 TESTED AT [address] [address] [id number] 13:25:00* Test Item Value Reference Range Comments PARTIAL THROMBOPLASTIN TIME (BEAKER) (test uspw=671) 49.6 seconds 22.5-36.0 POCT-GLUCOSE [id number] 08:25:00* Test Item Value Reference Range Comments POC-GLUCOSE METER (BEAKER) (test ocrx=0254) 80 mg/dL 70-110 TESTED AT [facility] [address] [address] [id number] 05:07:00* Test Item Value Reference Range Comments PHOSPHORUS (BEAKER) (test nutu=433) 3.7 mg/dL 2.3-4.7 BASIC METABOLIC [id number] 05:07:00* Test Item Value Reference Range Comments SODIUM (BEAKER) (test cdik=686) 142 meq/L 136-145 POTASSIUM (BEAKER) (test kdiz=449) 3.7 meq/L 3.5-5.1 CHLORIDE (BEAKER) (test zlst=379) 115 meq/L 98-107 CO2 (BEAKER) (test tqnl=376) 22 meq/L 22-29 BLOOD UREA NITROGEN (BEAKER) (test feua=268) 8 mg/dL 7-21 CREATININE (BEAKER) (test fqcc=862) 0.66 mg/dL 0.57-1.25 GLUCOSE RANDOM (BEAKER) (test sgck=383) 69 mg/dL 70-105 CALCIUM (BEAKER) (test hmaz=911) 8.3 mg/dL 8.4-10.2 EGFR (BEAKER) (test gypk=2138) 91 mL/min/1.73 sq m ESTIMATED GFR IS NOT ACCURATE CREATININE CLEARANCE IN PREDICTING GLOMERULAR FILTRATION RATE. ESTIMATED GFR IS NOT APPLICABLE FOR DIALYSIS PATIENTS. LIPID [id number] 05:07:00* Test Item Value Reference Range Comments TRIGLYCERIDES (BEAKER) (test vrmg=488) 184 mg/dL CHOLESTEROL (BEAKER) (test sjkv=510) 114 mg/dL HDL CHOLESTEROL (BEAKER) (test qnmr=227) 40 mg/dL LDL CHOLESTEROL CALCULATED (BEAKER) (test yjmh=454) 37 mg/dL Triglyceride Reference Range: Low Risk <150 Borderline 150-199 High Risk 200-499 Very High Risk >=500Cholesterol Reference Range: Low Risk <200 Borderline 200-239 High Risk >240HDL Cholesterol Reference Range: Low Risk >=60 High Risk <40LDL Cholesterol Reference Range: Optimal <100 Near Optimal 100-129 Borderline 130-159 High 160-189 Very High >=190 CREATINE KINASE (CK)2018-07-06 05:07:00* Test Item Value Reference Range Comments CREATINE KINASE TOTAL (BEAKER) (test xanx=576) 635 U/L 29-200 [id number] 04:54:00* Test Item Value Reference Range Comments PARTIAL THROMBOPLASTIN TIME (BEAKER) (test pcfd=344) 66.5 seconds 22.5-36.0 While on warfarin.PROTHROMBIN TIME/[id number] 04:53:00* Test Item Value Reference Range Comments PROTIME (BEAKER) (test uljk=465) 13.6 seconds 11.7-14.7 INR (BEAKER) (test tdbo=896) 1.0 <=5.9 RECOMMENDED COUMADIN/WARFARIN INR THERAPY RANGESSTANDARD DOSE: 2.0 - 3.0 Inclu earl: PROPHYLAXIS for venous thrombosis, systemic embolization; TREATMENT for zahra ous thrombosis and/or pulmonary embolus.HIGH RISK: Target INR is 2.5-3.5 for pat ients with mechanical heart valves.While on warfarin.CBC W/PLT COUNT & AUTO [id number] 04:33:00* Test Item Value Reference Range Comments WHITE BLOOD CELL COUNT (BEAKER) (test dzof=885) 9.3 K/ L 3.5-10.5 RED BLOOD CELL COUNT (BEAKER) (test rklf=696) 2.79 M/ L 3.93-5.22 HEMOGLOBIN (BEAKER) (test vcmb=663) 7.5 GM/DL 11.2-15.7 HEMATOCRIT (BEAKER) (test oshp=198) 24.6 % 34.1-44.9 MEAN CORPUSCULAR VOLUME (BEAKER) (test bimm=648) 88.2 fL 79.4-94.8 MEAN CORPUSCULAR HEMOGLOBIN (BEAKER) (test gfnh=322) 26.9 pg 25.6-32.2 MEAN CORPUSCULAR HEMOGLOBIN CONC (BEAKER) (test cufw=821) 30.5 GM/DL 32.2-35.5 RED CELL DISTRIBUTION WIDTH (BEAKER) (test mwjj=209) 17.3 % 11.7-14.4 PLATELET COUNT (BEAKER) (test igpu=411) 443 K/CU MM 150-450 MEAN PLATELET VOLUME (BEAKER) (test kxfr=288) 10.8 fL 9.4-12.3 NUCLEATED RED BLOOD CELLS (BEAKER) (test jxdi=052) 0 /100 WBC 0-0 NEUTROPHILS RELATIVE PERCENT (BEAKER) (test wyfa=485) 71 % LYMPHOCYTES RELATIVE PERCENT (BEAKER) (test lwqs=060) 16 % MONOCYTES RELATIVE PERCENT (BEAKER) (test nvqi=033) 11 % EOSINOPHILS RELATIVE PERCENT (BEAKER) (test swer=546) 1 % BASOPHILS RELATIVE PERCENT (BEAKER) (test vxug=552) 0 % NEUTROPHILS ABSOLUTE COUNT (BEAKER) (test glzx=659) 6.59 K/ L 1.56-6.13 LYMPHOCYTES ABSOLUTE COUNT (BEAKER) (test bsik=056) 1.50 K/ L 1.18-3.74 MONOCYTES ABSOLUTE COUNT (BEAKER) (test wvhx=407) 1.06 K/ L 0.24-0.36 EOSINOPHILS ABSOLUTE COUNT (BEAKER) (test oitb=949) 0.05 K/ L 0.04-0.36 BASOPHILS ABSOLUTE COUNT (BEAKER) (test ecuf=217) 0.02 K/ L 0.01-0.08 IMMATURE GRANULOCYTES-RELATIVE PERCENT (BEAKER) (test igju=7413) 1 % 0-1 [id number] 02:41:00* Test Item Value Reference Range Comments PARTIAL THROMBOPLASTIN TIME (BEAKER) (test aysq=864) 122.6 seconds 22.5-36.0 POCT-GLUCOSE [id number] 01:04:00* Test Item Value Reference Range Comments POC-GLUCOSE METER (BEAKER) (test pxxx=9785) 101 mg/dL 70-110 TESTED AT [facility] [address] [address] [id number] 17:35:00* Test Item Value Reference Range Comments PHOSPHORUS (BEAKER) (test cllo=555) 3.8 mg/dL 2.3-4.7 BASIC METABOLIC [id number] 17:35:00* Test Item Value Reference Range Comments SODIUM (BEAKER) (test okmg=331) 141 meq/L 136-145 POTASSIUM (BEAKER) (test hvdy=957) 4.0 meq/L 3.5-5.1 CHLORIDE (BEAKER) (test npqo=110) 113 meq/L 98-107 CO2 (BEAKER) (test xxsv=053) 21 meq/L 22-29 BLOOD UREA NITROGEN (BEAKER) (test chox=770) 8 mg/dL 7-21 CREATININE (BEAKER) (test fvpo=590) 0.66 mg/dL 0.57-1.25 GLUCOSE RANDOM (BEAKER) (test ookq=692) 136 mg/dL 70-105 CALCIUM (BEAKER) (test subn=372) 8.7 mg/dL 8.4-10.2 EGFR (BEAKER) (test ihcz=7741) 91 mL/min/1.73 sq m ESTIMATED GFR IS NOT ACCURATE CREATININE CLEARANCE IN PREDICTING GLOMERULAR FILTRATION RATE. ESTIMATED GFR IS NOT APPLICABLE FOR DIALYSIS PATIENTS. [id number] 17:27:00* Test Item Value Reference Range Comments PROTIME (BEAKER) (test vxwj=553) 13.3 seconds 11.7-14.7 INR (BEAKER) (test bhmi=628) 1.0 <=5.9 PARTIAL THROMBOPLASTIN TIME (BEAKER) (test gvzi=387) 69.4 seconds 22.5-36.0 RECOMMENDED COUMADIN/WARFARIN INR THERAPY RANGESSTANDARD DOSE: 2.0 - 3.0 Inclu earl: PROPHYLAXIS for venous thrombosis, systemic embolization; TREATMENT for zahra ous thrombosis and/or pulmonary embolus.HIGH RISK: Target INR is 2.5-3.5 for pat ients with mechanical heart valves.POCT-GLUCOSE [id number] 17:08:00* Test Item Value Reference Range Comments POC-GLUCOSE METER (BEAKER) (test fwvt=3015) 171 mg/dL 70-110 TESTED AT [facility] [address] [address] [id number] 10:12:00* Test Item Value Reference Range Comments PROTIME (BEAKER) (test myhb=877) 13.1 seconds 11.7-14.7 INR (BEAKER) (test qkjq=458) 1.0 <=5.9 PARTIAL THROMBOPLASTIN TIME (BEAKER) (test jbsi=477) 76.8 seconds 22.5-36.0 RECOMMENDED COUMADIN/WARFARIN INR THERAPY RANGESSTANDARD DOSE: 2.0 - 3.0 Inclu earl: PROPHYLAXIS for venous thrombosis, systemic embolization; TREATMENT for zahra ous thrombosis and/or pulmonary embolus.HIGH RISK: Target INR is 2.5-3.5 for pat ients with mechanical heart valves.POCT-GLUCOSE [id number] 09:46:00* Test Item Value Reference Range Comments POC-GLUCOSE METER (BEAKER) (test bgyi=4531) 114 mg/dL 70-110 TESTED AT [facility] [address] [address] [id number] 04:39:00* Test Item Value Reference Range Comments PHOSPHORUS (BEAKER) (test cfvo=750) 3.4 mg/dL 2.3-4.7 BASIC METABOLIC [id number] 04:39:00* Test Item Value Reference Range Comments SODIUM (BEAKER) (test dryp=436) 142 meq/L 136-145 POTASSIUM (BEAKER) (test lrjc=020) 3.7 meq/L 3.5-5.1 CHLORIDE (BEAKER) (test ddhk=002) 116 meq/L 98-107 CO2 (BEAKER) (test lzwo=646) 19 meq/L 22-29 BLOOD UREA NITROGEN (BEAKER) (test fcwl=127) 9 mg/dL 7-21 CREATININE (BEAKER) (test cmyn=499) 0.67 mg/dL 0.57-1.25 GLUCOSE RANDOM (BEAKER) (test swgn=176) 88 mg/dL 70-105 CALCIUM (BEAKER) (test rbpj=647) 8.6 mg/dL 8.4-10.2 EGFR (BEAKER) (test oeaw=1602) 89 mL/min/1.73 sq m ESTIMATED GFR IS NOT ACCURATE CREATININE CLEARANCE IN PREDICTING GLOMERULAR FILTRATION RATE. ESTIMATED GFR IS NOT APPLICABLE FOR DIALYSIS PATIENTS. CBC W/PLT COUNT & AUTO [id number] 04:19:00* Test Item Value Reference Range Comments WHITE BLOOD CELL COUNT (BEAKER) (test aneh=732) 10.2 K/ L 3.5-10.5 RED BLOOD CELL COUNT (BEAKER) (test gqrs=988) 2.77 M/ L 3.93-5.22 HEMOGLOBIN (BEAKER) (test uxuf=126) 7.7 GM/DL 11.2-15.7 HEMATOCRIT (BEAKER) (test vhyu=879) 24.5 % 34.1-44.9 MEAN CORPUSCULAR VOLUME (BEAKER) (test ketw=768) 88.4 fL 79.4-94.8 MEAN CORPUSCULAR HEMOGLOBIN (BEAKER) (test ucqm=162) 27.8 pg 25.6-32.2 MEAN CORPUSCULAR HEMOGLOBIN CONC (BEAKER) (test urgp=625) 31.4 GM/DL 32.2-35.5 RED CELL DISTRIBUTION WIDTH (BEAKER) (test kxzr=351) 17.2 % 11.7-14.4 PLATELET COUNT (BEAKER) (test gvne=100) 446 K/CU MM 150-450 MEAN PLATELET VOLUME (BEAKER) (test yufp=207) 10.9 fL 9.4-12.3 NUCLEATED RED BLOOD CELLS (BEAKER) (test mjzn=814) 0 /100 WBC 0-0 NEUTROPHILS RELATIVE PERCENT (BEAKER) (test skxh=925) 73 % LYMPHOCYTES RELATIVE PERCENT (BEAKER) (test xftq=958) 14 % MONOCYTES RELATIVE PERCENT (BEAKER) (test yipk=560) 11 % EOSINOPHILS RELATIVE PERCENT (BEAKER) (test dgwz=729) 1 % BASOPHILS RELATIVE PERCENT (BEAKER) (test xdou=541) 0 % NEUTROPHILS ABSOLUTE COUNT (BEAKER) (test kufx=564) 7.42 K/ L 1.56-6.13 LYMPHOCYTES ABSOLUTE COUNT (BEAKER) (test rmaf=220) 1.47 K/ L 1.18-3.74 MONOCYTES ABSOLUTE COUNT (BEAKER) (test gzne=095) 1.16 K/ L 0.24-0.36 EOSINOPHILS ABSOLUTE COUNT (BEAKER) (test qozd=985) 0.09 K/ L 0.04-0.36 BASOPHILS ABSOLUTE COUNT (BEAKER) (test jzmw=822) 0.03 K/ L 0.01-0.08 IMMATURE GRANULOCYTES-RELATIVE PERCENT (BEAKER) (test drrz=0147) 1 % 0-1 [id number] 03:02:00* Test Item Value Reference Range Comments PARTIAL THROMBOPLASTIN TIME (BEAKER) (test ylsb=219) 36.1 seconds 22.5-36.0 Prior to initiating heparinPOCT-GLUCOSE [id number] 22:18:00* Test Item Value Reference Range Comments POC-GLUCOSE METER (BEAKER) (test spmo=0336) 119 mg/dL 70-110 TESTED AT [facility] [address] [address] [id number] 18:15:00* Test Item Value Reference Range Comments PHOSPHORUS (BEAKER) (test lltt=646) 3.4 mg/dL 2.3-4.7 BASIC METABOLIC [id number] 18:15:00* Test Item Value Reference Range Comments SODIUM (BEAKER) (test vzzo=444) 142 meq/L 136-145 POTASSIUM (BEAKER) (test ygdk=279) 3.9 meq/L 3.5-5.1 CHLORIDE (BEAKER) (test bgfp=367) 113 meq/L 98-107 CO2 (BEAKER) (test kzbg=701) 24 meq/L 22-29 BLOOD UREA NITROGEN (BEAKER) (test rjwh=604) 10 mg/dL 7-21 CREATININE (BEAKER) (test otwh=815) 0.69 mg/dL 0.57-1.25 GLUCOSE RANDOM (BEAKER) (test lndu=702) 171 mg/dL 70-105 CALCIUM (BEAKER) (test prcd=209) 8.7 mg/dL 8.4-10.2 EGFR (BEAKER) (test yxko=7149) 86 mL/min/1.73 sq m ESTIMATED GFR IS NOT ACCURATE CREATININE CLEARANCE IN PREDICTING GLOMERULAR FILTRATION RATE. ESTIMATED GFR IS NOT APPLICABLE FOR DIALYSIS PATIENTS. POCT-GLUCOSE [id number] 17:29:00* Test Item Value Reference Range Comments POC-GLUCOSE METER (BEAKER) (test hedw=9974) 214 mg/dL 70-110 TESTED AT [place] [id number] POCT-GLUCOSE [id number] 12:30:00* Test Item Value Reference Range Comments POC-GLUCOSE METER (BEAKER) (test jfuw=7937) 152 mg/dL 70-110 TESTED AT [address] [address] BLOOD [id number] 11:01:00* Test Item Value Reference Range Comments CULTURE (BEAKER) (test uzfq=3323) No growth in 5 days POCT-GLUCOSE [id number] 07:22:00* Test Item Value Reference Range Comments POC-GLUCOSE METER (BEAKER) (test ixpy=1694) 139 mg/dL 70-110 TESTED AT [place] [id number] POCT-GLUCOSE [id number] 06:26:00* Test Item Value Reference Range Comments POC-GLUCOSE METER (BEAKER) (test iaif=4332) 74 mg/dL 70-110 TESTED AT [facility] [address] [place] [address] [id number] 05:39:00* Test Item Value Reference Range Comments PHOSPHORUS (BEAKER) (test proz=367) 3.2 mg/dL 2.3-4.7 [id number] 05:39:00* Test Item Value Reference Range Comments MAGNESIUM (BEAKER) (test kbpw=875) 1.4 mg/dL 1.6-2.6 BASIC METABOLIC [id number] 05:39:00* Test Item Value Reference Range Comments SODIUM (BEAKER) (test dddk=290) 143 meq/L 136-145 POTASSIUM (BEAKER) (test wpwn=323) 3.9 meq/L 3.5-5.1 CHLORIDE (BEAKER) (test dgzk=145) 118 meq/L 98-107 CO2 (BEAKER) (test sfkv=582) 19 meq/L 22-29 BLOOD UREA NITROGEN (BEAKER) (test sreu=413) 8 mg/dL 7-21 CREATININE (BEAKER) (test xwwm=816) 0.64 mg/dL 0.57-1.25 GLUCOSE RANDOM (BEAKER) (test ixyq=374) 68 mg/dL 70-105 CALCIUM (BEAKER) (test cckp=971) 8.5 mg/dL 8.4-10.2 EGFR (BEAKER) (test mrgi=3650) 94 mL/min/1.73 sq m ESTIMATED GFR IS NOT ACCURATE CREATININE CLEARANCE IN PREDICTING GLOMERULAR FILTRATION RATE. ESTIMATED GFR IS NOT APPLICABLE FOR DIALYSIS PATIENTS. CBC W/PLT COUNT & AUTO [id number] 05:25:00* Test Item Value Reference Range Comments WHITE BLOOD CELL COUNT (BEAKER) (test leyu=045) 8.6 K/ L 3.5-10.5 RED BLOOD CELL COUNT (BEAKER) (test xuly=255) 2.70 M/ L 3.93-5.22 HEMOGLOBIN (BEAKER) (test bvlo=923) 7.4 GM/DL 11.2-15.7 HEMATOCRIT (BEAKER) (test pkgf=997) 24.5 % 34.1-44.9 MEAN CORPUSCULAR VOLUME (BEAKER) (test jlms=352) 90.7 fL 79.4-94.8 MEAN CORPUSCULAR HEMOGLOBIN (BEAKER) (test ymxl=557) 27.4 pg 25.6-32.2 MEAN CORPUSCULAR HEMOGLOBIN CONC (BEAKER) (test taud=244) 30.2 GM/DL 32.2-35.5 RED CELL DISTRIBUTION WIDTH (BEAKER) (test cucz=523) 17.5 % 11.7-14.4 PLATELET COUNT (BEAKER) (test gcaf=558) 397 K/CU MM 150-450 MEAN PLATELET VOLUME (BEAKER) (test hbij=896) 10.6 fL 9.4-12.3 NUCLEATED RED BLOOD CELLS (BEAKER) (test cari=220) 0 /100 WBC 0-0 NEUTROPHILS RELATIVE PERCENT (BEAKER) (test aszg=179) 74 % LYMPHOCYTES RELATIVE PERCENT (BEAKER) (test qcgz=348) 14 % MONOCYTES RELATIVE PERCENT (BEAKER) (test lgql=195) 12 % EOSINOPHILS RELATIVE PERCENT (BEAKER) (test lkfd=974) 0 % BASOPHILS RELATIVE PERCENT (BEAKER) (test jvzw=601) 0 % NEUTROPHILS ABSOLUTE COUNT (BEAKER) (test kggp=117) 6.36 K/ L 1.56-6.13 LYMPHOCYTES ABSOLUTE COUNT (BEAKER) (test lkcf=436) 1.19 K/ L 1.18-3.74 MONOCYTES ABSOLUTE COUNT (BEAKER) (test kzkq=291) 1.01 K/ L 0.24-0.36 EOSINOPHILS ABSOLUTE COUNT (BEAKER) (test npfo=012) 0.01 K/ L 0.04-0.36 BASOPHILS ABSOLUTE COUNT (BEAKER) (test fvhl=928) 0.01 K/ L 0.01-0.08 IMMATURE GRANULOCYTES-RELATIVE PERCENT (BEAKER) (test ozyo=2290) 1 % 0-1 POCT-GLUCOSE [id number] 22:22:00* Test Item Value Reference Range Comments POC-GLUCOSE METER (BEAKER) (test rpir=8700) 165 mg/dL 70-110 TESTED AT [place] [id number] POCT-GLUCOSE [id number] 18:59:00* Test Item Value Reference Range Comments POC-GLUCOSE METER (BEAKER) (test xzig=0955) 187 mg/dL 70-110 TESTED AT [address] [address] [id number] 18:07:00* Test Item Value Reference Range Comments PHOSPHORUS (BEAKER) (test zjor=461) 4.9 mg/dL 2.3-4.7 BASIC METABOLIC [id number] 18:07:00* Test Item Value Reference Range Comments SODIUM (BEAKER) (test skyg=815) 143 meq/L 136-145 POTASSIUM (BEAKER) (test lnfc=466) 4.4 meq/L 3.5-5.1 CHLORIDE (BEAKER) (test sahs=917) 117 meq/L 98-107 CO2 (BEAKER) (test tplt=898) 19 meq/L 22-29 BLOOD UREA NITROGEN (BEAKER) (test djwk=478) 9 mg/dL 7-21 CREATININE (BEAKER) (test ztgm=854) 0.69 mg/dL 0.57-1.25 GLUCOSE RANDOM (BEAKER) (test oqoj=718) 175 mg/dL 70-105 CALCIUM (BEAKER) (test bnki=899) 8.4 mg/dL 8.4-10.2 EGFR (BEAKER) (test thog=0190) 86 mL/min/1.73 sq m ESTIMATED GFR IS NOT ACCURATE CREATININE CLEARANCE IN PREDICTING GLOMERULAR FILTRATION RATE. ESTIMATED GFR IS NOT APPLICABLE FOR DIALYSIS PATIENTS. ANG, TUNNELED CATHETER [id number] 14:55:00FINAL REPORT Tunneled central venous catheter insertion History: Long-term IV antibiotics Modality: Sonography and fluoroscopy. Sedation: None Yoke Setter: Homa. Application Support Technician: None. Approach: Right internal jugular vein Estimated blood loss: < 5 cc. Specimen: None. Fluoroscopy Time: 0.2 min. Dose (Ka,r): 0.8 mGy. Technique: Informed written consent was obtained. Discussion of risks, benefits, and alternatives were made with the patient. The patient expressed understanding and agreed to proceed. All elements maximal sterile barrier technique was utilized for this procedure, including utilization of sterile scrub solution for skin prep, a large sterile sheet to cover the areas of the patient that were not prepped, and hand hygiene, mask, head covering, and sterile gown for performing radiologist and scrub technologist. The skin was anesthetized with 2% lidocaine.Ultrasound evaluation showed a patent and compressible right internal jugular vein, which was punctured under direct real-time ultrasound guidance with a micropuncture needle. An ultrasound image was saved to PACS. A 0.018 inch wire was placed through the needle into the right atrium. A subcutaneous tunnel was created in the right anterior chest wall by blunt dissection. A 19 cm 6 [place] [employer] catheter was brought through the tunnel. A peel-away sheath was placed in the right IJ vein and the catheter was advanced through the sheath, with its distal tip terminating in the right atrium. The peel-away sheath was removed. The ports were flushed and aspirated easily following placement. The catheter was sutured to the skin with 2-0 silk to secure its placement. The small jugular incision site was closed using resorbable suture. Vital signs were monitored throughout the procedure by a nurse, and remained stable. The patient tolerated the procedure well and left the department in the same condition. Results: Spot radiograph of the chest demonstrates the new tunneled central venous catheter to lie in the expected position with its tip overlying the superior right atrium. Impression: Successful, uncomplicated p lacement of a right internal jugular tunneled central venous catheter. Sign ed: Liu Huizar [facility] Verified Date/Time: 07/03/2018 14:55:21 Reading Lo cation: [facility] B1 P048 Angio Body Reading Room -GLUCOSE [id number] 11:44:00* Test Item Value Reference Range Comments POC-GLUCOSE METER (BEAKER) (test fuve=6812) 81 mg/dL 70-110 TESTED AT [address] [address] BLOOD [id number] 11:01:00* Test Item Value Reference Range Comments CULTURE (BEAKER) (test zgfd=6059) No growth in 5 days POCT-GLUCOSE [id number] 09:05:00* Test Item Value Reference Range Comments POC-GLUCOSE METER (BEAKER) (test fsce=3219) 125 mg/dL 70-110 TESTED AT [address] [address] POCT-GLUCOSE [id number] 09:05:00* Test Item Value Reference Range Comments POC-GLUCOSE METER (BEAKER) (test odda=1559) 68 mg/dL 70-110 TESTED AT [address] [address] POCT-GLUCOSE [id number] 05:34:00* Test Item Value Reference Range Comments POC-GLUCOSE METER (BEAKER) (test ihev=9578) 79 mg/dL 70-110 TESTED AT [facility] [address] [address] [id number] 05:03:00* Test Item Value Reference Range Comments PHOSPHORUS (BEAKER) (test eacp=128) 2.5 mg/dL 2.3-4.7 [id number] 05:03:00* Test Item Value Reference Range Comments MAGNESIUM (BEAKER) (test ivpb=418) 1.5 mg/dL 1.6-2.6 BASIC METABOLIC [id number] 05:03:00* Test Item Value Reference Range Comments SODIUM (BEAKER) (test hfig=186) 145 meq/L 136-145 POTASSIUM (BEAKER) (test aeog=403) 3.6 meq/L 3.5-5.1 CHLORIDE (BEAKER) (test sjxj=688) 119 meq/L 98-107 CO2 (BEAKER) (test sgfa=390) 20 meq/L 22-29 BLOOD UREA NITROGEN (BEAKER) (test ultm=280) 9 mg/dL 7-21 CREATININE (BEAKER) (test olcf=467) 0.62 mg/dL 0.57-1.25 GLUCOSE RANDOM (BEAKER) (test ojib=201) 63 mg/dL 70-105 CALCIUM (BEAKER) (test nhat=855) 8.4 mg/dL 8.4-10.2 EGFR (BEAKER) (test raxx=1952) 98 mL/min/1.73 sq m ESTIMATED GFR IS NOT ACCURATE CREATININE CLEARANCE IN PREDICTING GLOMERULAR FILTRATION RATE. ESTIMATED GFR IS NOT APPLICABLE FOR DIALYSIS PATIENTS. CBC W/PLT COUNT & AUTO [id number] 04:46:00* Test Item Value Reference Range Comments WHITE BLOOD CELL COUNT (BEAKER) (test txgj=949) 9.8 K/ L 3.5-10.5 RED BLOOD CELL COUNT (BEAKER) (test zdgj=030) 3.17 M/ L 3.93-5.22 HEMOGLOBIN (BEAKER) (test ljsh=650) 8.5 GM/DL 11.2-15.7 HEMATOCRIT (BEAKER) (test gynh=395) 27.8 % 34.1-44.9 MEAN CORPUSCULAR VOLUME (BEAKER) (test wtqu=620) 87.7 fL 79.4-94.8 MEAN CORPUSCULAR HEMOGLOBIN (BEAKER) (test xcsl=966) 26.8 pg 25.6-32.2 MEAN CORPUSCULAR HEMOGLOBIN CONC (BEAKER) (test xpxf=226) 30.6 GM/DL 32.2-35.5 RED CELL DISTRIBUTION WIDTH (BEAKER) (test jdtk=179) 17.7 % 11.7-14.4 PLATELET COUNT (BEAKER) (test mibg=613) 433 K/CU MM 150-450 MEAN PLATELET VOLUME (BEAKER) (test uvyi=871) 10.6 fL 9.4-12.3 NUCLEATED RED BLOOD CELLS (BEAKER) (test jcpt=816) 0 /100 WBC 0-0 NEUTROPHILS RELATIVE PERCENT (BEAKER) (test xohl=961) 73 % LYMPHOCYTES RELATIVE PERCENT (BEAKER) (test xhcr=217) 13 % MONOCYTES RELATIVE PERCENT (BEAKER) (test vzvn=899) 12 % EOSINOPHILS RELATIVE PERCENT (BEAKER) (test wccm=215) 1 % BASOPHILS RELATIVE PERCENT (BEAKER) (test cazl=328) 0 % NEUTROPHILS ABSOLUTE COUNT (BEAKER) (test gebx=477) 7.16 K/ L 1.56-6.13 LYMPHOCYTES ABSOLUTE COUNT (BEAKER) (test fwsg=948) 1.28 K/ L 1.18-3.74 MONOCYTES ABSOLUTE COUNT (BEAKER) (test shgm=351) 1.21 K/ L 0.24-0.36 EOSINOPHILS ABSOLUTE COUNT (BEAKER) (test yqwl=905) 0.09 K/ L 0.04-0.36 BASOPHILS ABSOLUTE COUNT (BEAKER) (test xgut=970) 0.01 K/ L 0.01-0.08 IMMATURE GRANULOCYTES-RELATIVE PERCENT (BEAKER) (test otbf=8893) 1 % 0-1 POCT-GLUCOSE [id number] 22:28:00* Test Item Value Reference Range Comments POC-GLUCOSE METER (BEAKER) (test nvtx=5179) 97 mg/dL 70-110 TESTED AT [facility] [address] [address] HEMOGLOBIN AND [id number] 20:34:00* Test Item Value Reference Range Comments HEMOGLOBIN (BEAKER) (test yvlx=550) 9.1 GM/DL 11.2-15.7 HEMATOCRIT (BEAKER) (test hmzp=094) 29.6 % 34.1-44.9 [id number] 18:51:00* Test Item Value Reference Range Comments PHOSPHORUS (BEAKER) (test khin=635) 2.8 mg/dL 2.3-4.7 BASIC METABOLIC [id number] 18:51:00* Test Item Value Reference Range Comments SODIUM (BEAKER) (test gysn=573) 143 meq/L 136-145 POTASSIUM (BEAKER) (test ayri=397) 3.8 meq/L 3.5-5.1 CHLORIDE (BEAKER) (test lojw=909) 118 meq/L 98-107 CO2 (BEAKER) (test xwek=936) 19 meq/L 22-29 BLOOD UREA NITROGEN (BEAKER) (test jhgk=334) 10 mg/dL 7-21 CREATININE (BEAKER) (test rjta=719) 0.66 mg/dL 0.57-1.25 GLUCOSE RANDOM (BEAKER) (test uzsy=726) 90 mg/dL 70-105 CALCIUM (BEAKER) (test mbma=173) 8.5 mg/dL 8.4-10.2 EGFR (BEAKER) (test ackj=6157) 91 mL/min/1.73 sq m ESTIMATED GFR IS NOT ACCURATE CREATININE CLEARANCE IN PREDICTING GLOMERULAR FILTRATION RATE. ESTIMATED GFR IS NOT APPLICABLE FOR DIALYSIS PATIENTS. POCT-GLUCOSE [id number] 18:29:00* Test Item Value Reference Range Comments POC-GLUCOSE METER (BEAKER) (test zzra=5630) 116 mg/dL 70-110 TESTED AT [facility] [address] [address] PERIPHERAL BLOOD SMEAR - HOLD [id number] 15:56:00* Test Item Value Reference Range Comments PERIPHERAL SMEAR SAVE (BEAKER) (test tets=6618) saved [id number] 14:43:00* Test Item Value Reference Range Comments MAGNESIUM (BEAKER) (test qmjx=868) 2.5 mg/dL 1.6-2.6 LACTATE DEHYDROGENASE (LDH)2018-07-02 14:43:00* Test Item Value Reference Range Comments LACTATE DEHYDROGENASE (BEAKER) (test bfdf=981) 453 U/L 125-220 C-REACTIVE [id number] 14:42:00* Test Item Value Reference Range Comments C-REACTIVE PROTEIN (BEAKER) (test vsks=994) 3.48 mg/dL 0.00-0.50 [id number] 14:25:00* Test Item Value Reference Range Comments HAPTOGLOBIN (BEAKER) (test bxfr=971) 278 mg/dL 14-258 [id number] 14:06:00* Test Item Value Reference Range Comments FIBRINOGEN LEVEL (BEAKER) (test gwso=614) 525 mg/dl 225-434 [id number] 14:04:00* Test Item Value Reference Range Comments D-DIMER QUANTITATIVE (BEAKER) (test johc=833) 1.23 MG/L FEU <0.50 Intended Use: The D-Dimer Assay can be used to aid in the diagnosis of Deep Vein Thrombosis (DVT) and Pulmonary Embolism Disease (PED).In patients with low pre- test probability, various studies concerning STA Liatest D-dimer test have repor joey that with a cutoff value of 0.50 MG/L FEU, the Negative Predictive Value (RECEIVER V) regarding the exclusion of thrombosis is within 95-100% range.[id number] 14:01:00* Test Item Value Reference Range Comments PARTIAL THROMBOPLASTIN TIME (BEAKER) (test rhdp=418) 29.8 seconds 22.5-36.0 HEMOGLOBIN AND [id number] 13:53:00* Test Item Value Reference Range Comments HEMOGLOBIN (BEAKER) (test kehr=996) 9.1 GM/DL 11.2-15.7 HEMATOCRIT (BEAKER) (test mtcd=900) 29.0 % 34.1-44.9 POCT-GLUCOSE [id number] 12:19:00* Test Item Value Reference Range Comments POC-GLUCOSE METER (BEAKER) (test jugx=7462) 137 mg/dL 70-110 TESTED AT [facility] [address] [address] BLOOD [id number] 11:01:00* Test Item Value Reference Range Comments CULTURE (BEAKER) (test nrxy=0531) No growth in 5 days BLOOD [id number] 11:01:00* Test Item Value Reference Range Comments CULTURE (BEAKER) (test ykiz=9582) No growth in 5 days [id number] 09:32:00* Test Item Value Reference Range Comments PHOSPHORUS (BEAKER) (test nrpl=198) 3.0 mg/dL 2.3-4.7 CREATINE KINASE (CK)2018-07-02 08:53:00* Test Item Value Reference Range Comments CREATINE KINASE TOTAL (BEAKER) (test ixly=776) 82 U/L 29-200 [id number] 06:33:00* Test Item Value Reference Range Comments HOMOCYSTEINE (BEAKER) (test apqt=686) 4.0 umol/L 5.1-15.4 [id number] 05:17:00* Test Item Value Reference Range Comments MAGNESIUM (BEAKER) (test qaiz=878) 1.5 mg/dL 1.6-2.6 BASIC METABOLIC [id number] 05:17:00* Test Item Value Reference Range Comments SODIUM (BEAKER) (test suyu=509) 141 meq/L 136-145 POTASSIUM (BEAKER) (test nkyv=775) 3.8 meq/L 3.5-5.1 CHLORIDE (BEAKER) (test eueh=553) 117 meq/L 98-107 CO2 (BEAKER) (test weue=708) 19 meq/L 22-29 BLOOD UREA NITROGEN (BEAKER) (test ffcm=162) 11 mg/dL 7-21 CREATININE (BEAKER) (test fcjw=312) 0.65 mg/dL 0.57-1.25 GLUCOSE RANDOM (BEAKER) (test jeyo=677) 129 mg/dL 70-105 CALCIUM (BEAKER) (test uogc=941) 8.4 mg/dL 8.4-10.2 EGFR (BEAKER) (test bamg=5058) 93 mL/min/1.73 sq m ESTIMATED GFR IS NOT ACCURATE CREATININE CLEARANCE IN PREDICTING GLOMERULAR FILTRATION RATE. ESTIMATED GFR IS NOT APPLICABLE FOR DIALYSIS PATIENTS. PT/[id number] 04:56:00* Test Item Value Reference Range Comments PROTIME (BEAKER) (test pwdr=230) 14.3 seconds 11.7-14.7 INR (BEAKER) (test dbna=364) 1.1 <=5.9 PARTIAL THROMBOPLASTIN TIME (BEAKER) (test dnxh=311) 64.7 seconds 22.5-36.0 RECOMMENDED COUMADIN/WARFARIN INR THERAPY RANGESSTANDARD DOSE: 2.0 - 3.0 Inclu earl: PROPHYLAXIS for venous thrombosis, systemic embolization; TREATMENT for zahra ous thrombosis and/or pulmonary embolus.HIGH RISK: Target INR is 2.5-3.5 for pat ients with mechanical heart valves.CBC W/PLT COUNT & AUTO [id number] 04:45:00* Test Item Value Reference Range Comments WHITE BLOOD CELL COUNT (BEAKER) (test bhgw=877) 9.1 K/ L 3.5-10.5 RED BLOOD CELL COUNT (BEAKER) (test rubn=825) 3.24 M/ L 3.93-5.22 HEMOGLOBIN (BEAKER) (test phvi=926) 8.8 GM/DL 11.2-15.7 HEMATOCRIT (BEAKER) (test ybzy=481) 28.1 % 34.1-44.9 MEAN CORPUSCULAR VOLUME (BEAKER) (test yuaq=080) 86.7 fL 79.4-94.8 MEAN CORPUSCULAR HEMOGLOBIN (BEAKER) (test bwft=327) 27.2 pg 25.6-32.2 MEAN CORPUSCULAR HEMOGLOBIN CONC (BEAKER) (test qmyh=706) 31.3 GM/DL 32.2-35.5 RED CELL DISTRIBUTION WIDTH (BEAKER) (test jewi=304) 17.7 % 11.7-14.4 PLATELET COUNT (BEAKER) (test yjey=716) 401 K/CU MM 150-450 MEAN PLATELET VOLUME (BEAKER) (test jovn=094) 10.5 fL 9.4-12.3 NUCLEATED RED BLOOD CELLS (BEAKER) (test galo=782) 0 /100 WBC 0-0 NEUTROPHILS RELATIVE PERCENT (BEAKER) (test dyzx=673) 73 % LYMPHOCYTES RELATIVE PERCENT (BEAKER) (test wbkr=553) 12 % MONOCYTES RELATIVE PERCENT (BEAKER) (test goeb=609) 14 % EOSINOPHILS RELATIVE PERCENT (BEAKER) (test avdf=911) 1 % BASOPHILS RELATIVE PERCENT (BEAKER) (test ruvu=159) 0 % NEUTROPHILS ABSOLUTE COUNT (BEAKER) (test qejx=376) 6.68 K/ L 1.56-6.13 LYMPHOCYTES ABSOLUTE COUNT (BEAKER) (test jkci=696) 1.06 K/ L 1.18-3.74 MONOCYTES ABSOLUTE COUNT (BEAKER) (test rxui=523) 1.24 K/ L 0.24-0.36 EOSINOPHILS ABSOLUTE COUNT (BEAKER) (test xbri=899) 0.05 K/ L 0.04-0.36 BASOPHILS ABSOLUTE COUNT (BEAKER) (test yzkd=784) 0.01 K/ L 0.01-0.08 IMMATURE GRANULOCYTES-RELATIVE PERCENT (BEAKER) (test waqm=0796) 1 % 0-1 [id number] 03:21:00* Test Item Value Reference Range Comments PARTIAL THROMBOPLASTIN TIME (BEAKER) (test aded=001) 125.8 seconds 22.5-36.0 POCT-GLUCOSE [id number] 22:42:00* Test Item Value Reference Range Comments POC-GLUCOSE METER (BEAKER) (test nttx=1620) 225 mg/dL 70-110 TESTED AT [facility] [address] [address] TROPONIN [id number] 20:24:00* Test Item Value Reference Range Comments TROPONIN I (BEAKER) (test dkpq=808) 0.07 ng/mL 0.00-0.03 Troponin I (TnI) levels must be interpreted in the context of the presenting sym ptoms and the clinical findings. Elevated TnI levels indicate myocardial damage, but are not specific for ischemic heart disease. Elevated TnI levels are seen in patients with other cardiac conditions (including myocarditis and congestive h eart failure), and slight TnI elevations occur in patients with other conditions , including sepsis, renal failure, acidosis, acute neurological disease, and per sistent tachyarrhythmia.BASIC METABOLIC [id number] 20:16:00* Test Item Value Reference Range Comments SODIUM (BEAKER) (test jjcd=627) 141 meq/L 136-145 POTASSIUM (BEAKER) (test vaop=864) 4.1 meq/L 3.5-5.1 CHLORIDE (BEAKER) (test ytqx=285) 115 meq/L 98-107 CO2 (BEAKER) (test trkg=399) 19 meq/L 22-29 BLOOD UREA NITROGEN (BEAKER) (test omnw=636) 11 mg/dL 7-21 CREATININE (BEAKER) (test yyzo=211) 0.67 mg/dL 0.57-1.25 GLUCOSE RANDOM (BEAKER) (test wufd=131) 140 mg/dL 70-105 CALCIUM (BEAKER) (test zkbz=673) 8.5 mg/dL 8.4-10.2 EGFR (BEAKER) (test azwl=7511) 89 mL/min/1.73 sq m ESTIMATED GFR IS NOT ACCURATE CREATININE CLEARANCE IN PREDICTING GLOMERULAR FILTRATION RATE. ESTIMATED GFR IS NOT APPLICABLE FOR DIALYSIS PATIENTS. [id number] 20:11:00* Test Item Value Reference Range Comments PARTIAL THROMBOPLASTIN TIME (BEAKER) (test lqjl=333) 52.2 seconds 22.5-36.0 HEMOGLOBIN AND [id number] 19:57:00* Test Item Value Reference Range Comments HEMOGLOBIN (BEAKER) (test zkec=429) 10.1 GM/DL 11.2-15.7 HEMATOCRIT (BEAKER) (test ltme=082) 31.0 % 34.1-44.9 BLOOD [id number] 19:01:00* Test Item Value Reference Range Comments CULTURE (BEAKER) (test vxrg=4266) No growth in 5 days POCT-GLUCOSE [id number] 18:01:00* Test Item Value Reference Range Comments POC-GLUCOSE METER (BEAKER) (test ancl=1501) 181 mg/dL 70-110 TESTED AT [address] [address] BASIC METABOLIC [id number] 13:00:00* Test Item Value Reference Range Comments SODIUM (BEAKER) (test wgmf=542) 142 meq/L 136-145 POTASSIUM (BEAKER) (test kawo=997) 4.0 meq/L 3.5-5.1 CHLORIDE (BEAKER) (test rbvs=606) 115 meq/L 98-107 CO2 (BEAKER) (test nsru=021) 18 meq/L 22-29 BLOOD UREA NITROGEN (BEAKER) (test wcnh=944) 11 mg/dL 7-21 CREATININE (BEAKER) (test cexb=419) 0.68 mg/dL 0.57-1.25 GLUCOSE RANDOM (BEAKER) (test ddry=770) 124 mg/dL 70-105 CALCIUM (BEAKER) (test mbsy=837) 8.5 mg/dL 8.4-10.2 EGFR (BEAKER) (test eqag=5001) 88 mL/min/1.73 sq m ESTIMATED GFR IS NOT ACCURATE CREATININE CLEARANCE IN PREDICTING GLOMERULAR FILTRATION RATE. ESTIMATED GFR IS NOT APPLICABLE FOR DIALYSIS PATIENTS. HEPATIC FUNCTION [id number] 13:00:00* Test Item Value Reference Range Comments TOTAL PROTEIN (BEAKER) (test qkws=731) 5.0 gm/dL 6.0-8.3 ALBUMIN (BEAKER) (test nuga=2262) 2.3 g/dL 3.5-5.0 BILIRUBIN TOTAL (BEAKER) (test jyad=103) 0.5 mg/dL 0.2-1.2 BILIRUBIN DIRECT (BEAKER) (test cdiz=303) 0.3 mg/dL 0.1-0.5 ALKALINE PHOSPHATASE (BEAKER) (test iuin=761) 152 U/L 40-150 AST (SGOT) (BEAKER) (test kirt=914) 15 U/L 5-34 ALT (SGPT) (BEAKER) (test ooqn=571) 16 U/L 6-55 PT/[id number] 13:00:00* Test Item Value Reference Range Comments PROTIME (BEAKER) (test samw=519) 14.1 seconds 11.7-14.7 INR (BEAKER) (test ahzk=522) 1.1 <=5.9 PARTIAL THROMBOPLASTIN TIME (BEAKER) (test jicb=837) 60.8 seconds 22.5-36.0 RECOMMENDED COUMADIN/WARFARIN INR THERAPY RANGESSTANDARD DOSE: 2.0 - 3.0 Inclu earl: PROPHYLAXIS for venous thrombosis, systemic embolization; TREATMENT for zahra ous thrombosis and/or pulmonary embolus.HIGH RISK: Target INR is 2.5-3.5 for pat ients with mechanical heart valves.HEMOGLOBIN AND [id number] 12:42:00 * Test Item Value Reference Range Comments HEMOGLOBIN (BEAKER) (test fqun=260) 10.4 GM/DL 11.2-15.7 HEMATOCRIT (BEAKER) (test lhir=269) 32.6 % 34.1-44.9 POCT-GLUCOSE [id number] 12:21:00* Test Item Value Reference Range Comments POC-GLUCOSE METER (BEAKER) (test fklt=1994) 146 mg/dL 70-110 TESTED AT [facility] [address] [address] POCT-GLUCOSE [id number] 08:24:00* Test Item Value Reference Range Comments POC-GLUCOSE METER (BEAKER) (test rxwe=7313) 113 mg/dL 70-110 TESTED AT [facility] [address] [address] TROPONIN [id number] 06:38:00* Test Item Value Reference Range Comments TROPONIN I (BEAKER) (test rcgn=783) 0.08 ng/mL 0.00-0.03 Troponin I (TnI) levels must be interpreted in the context of the presenting sym ptoms and the clinical findings. Elevated TnI levels indicate myocardial damage, but are not specific for ischemic heart disease. Elevated TnI levels are seen in patients with other cardiac conditions (including myocarditis and congestive h eart failure), and slight TnI elevations occur in patients with other conditions , including sepsis, renal failure, acidosis, acute neurological disease, and per sistent tachyarrhythmia.[id number] 06:07:00* Test Item Value Reference Range Comments PHOSPHORUS (BEAKER) (test kmck=586) 4.0 mg/dL 2.3-4.7 [id number] 06:07:00* Test Item Value Reference Range Comments MAGNESIUM (BEAKER) (test rbkg=755) 1.8 mg/dL 1.6-2.6 BASIC METABOLIC [id number] 06:07:00* Test Item Value Reference Range Comments SODIUM (BEAKER) (test lrpl=353) 140 meq/L 136-145 POTASSIUM (BEAKER) (test shfd=824) 4.0 meq/L 3.5-5.1 CHLORIDE (BEAKER) (test anup=772) 115 meq/L 98-107 CO2 (BEAKER) (test yqca=372) 17 meq/L 22-29 BLOOD UREA NITROGEN (BEAKER) (test zxtr=119) 10 mg/dL 7-21 CREATININE (BEAKER) (test oqjc=216) 0.66 mg/dL 0.57-1.25 GLUCOSE RANDOM (BEAKER) (test rtlb=292) 118 mg/dL 70-105 CALCIUM (BEAKER) (test dxtp=027) 8.3 mg/dL 8.4-10.2 EGFR (BEAKER) (test vlwz=5252) 91 mL/min/1.73 sq m ESTIMATED GFR IS NOT ACCURATE CREATININE CLEARANCE IN PREDICTING GLOMERULAR FILTRATION RATE. ESTIMATED GFR IS NOT APPLICABLE FOR DIALYSIS PATIENTS. [id number] 06:02:00* Test Item Value Reference Range Comments PARTIAL THROMBOPLASTIN TIME (BEAKER) (test nyab=761) 48.3 seconds 22.5-36.0 CBC W/PLT COUNT & AUTO [id number] 05:19:00* Test Item Value Reference Range Comments WHITE BLOOD CELL COUNT (BEAKER) (test kcnf=577) 9.0 K/ L 3.5-10.5 RED BLOOD CELL COUNT (BEAKER) (test loyn=497) 3.78 M/ L 3.93-5.22 HEMOGLOBIN (BEAKER) (test rozj=746) 10.4 GM/DL 11.2-15.7 HEMATOCRIT (BEAKER) (test bjpa=879) 31.9 % 34.1-44.9 MEAN CORPUSCULAR VOLUME (BEAKER) (test biuw=928) 84.4 fL 79.4-94.8 MEAN CORPUSCULAR HEMOGLOBIN (BEAKER) (test fetz=355) 27.5 pg 25.6-32.2 MEAN CORPUSCULAR HEMOGLOBIN CONC (BEAKER) (test lrbe=318) 32.6 GM/DL 32.2-35.5 RED CELL DISTRIBUTION WIDTH (BEAKER) (test skho=162) 18.1 % 11.7-14.4 PLATELET COUNT (BEAKER) (test ocrg=123) 391 K/CU MM 150-450 MEAN PLATELET VOLUME (BEAKER) (test fhod=367) 10.8 fL 9.4-12.3 NUCLEATED RED BLOOD CELLS (BEAKER) (test fncb=037) 0 /100 WBC 0-0 NEUTROPHILS RELATIVE PERCENT (BEAKER) (test jizv=944) 76 % LYMPHOCYTES RELATIVE PERCENT (BEAKER) (test hoxs=149) 12 % MONOCYTES RELATIVE PERCENT (BEAKER) (test xyyp=160) 11 % EOSINOPHILS RELATIVE PERCENT (BEAKER) (test rmyi=709) 0 % BASOPHILS RELATIVE PERCENT (BEAKER) (test pswk=068) 0 % NEUTROPHILS ABSOLUTE COUNT (BEAKER) (test zpnk=745) 6.81 K/ L 1.56-6.13 LYMPHOCYTES ABSOLUTE COUNT (BEAKER) (test qejx=413) 1.10 K/ L 1.18-3.74 MONOCYTES ABSOLUTE COUNT (BEAKER) (test xwhy=954) 1.01 K/ L 0.24-0.36 EOSINOPHILS ABSOLUTE COUNT (BEAKER) (test vsmd=937) 0.02 K/ L 0.04-0.36 BASOPHILS ABSOLUTE COUNT (BEAKER) (test bbqy=858) 0.01 K/ L 0.01-0.08 IMMATURE GRANULOCYTES-RELATIVE PERCENT (BEAKER) (test jtsn=8031) 1 % 0-1 TROPONIN [id number] 03:51:00* Test Item Value Reference Range Comments TROPONIN I (BEAKER) (test npgb=060) 0.08 ng/mL 0.00-0.03 Troponin I (TnI) levels must be interpreted in the context of the presenting sym ptoms and the clinical findings. Elevated TnI levels indicate myocardial damage, but are not specific for ischemic heart disease. Elevated TnI levels are seen in patients with other cardiac conditions (including myocarditis and congestive h eart failure), and slight TnI elevations occur in patients with other conditions , including sepsis, renal failure, acidosis, acute neurological disease, and per sistent tachyarrhythmia.HEMOGLOBIN AND [id number] 03:19:00* Test Item Value Reference Range Comments HEMOGLOBIN (BEAKER) (test ubki=983) 10.6 GM/DL 11.2-15.7 HEMATOCRIT (BEAKER) (test paap=568) 33.5 % 34.1-44.9 BLOOD [id number] 03:07:00* Test Item Value Reference Range Comments CULTURE (BEAKER) (test ocpk=1375) METHICILLIN RESISTANT STAPHYLOCOCCUS AUREUS From Anaerobic Bottle Only Methicillin resistant Staphylococcus aureus Clindamycin (test code=10) Daptomycin (test code=59) Erythromycin (test code=4) Linezolid (test code=40) Nitrofurantoin (test code=23) Oxacillin (test code=14) Rifampin (test code=43) Tetracycline (test code=2) Trimethoprim + Sulfamethoxazole (test code=47) Vancomycin (test code=13) CULTURE (BEAKER) (test uhhk=3397) From Anaerobic Bottle Only Coagulase negative Staphylococcus GRAM STAIN RESULT (BEAKER) (test rfji=5069) From anaerobic bottle only: gram positive cocci in clusters POCT-GLUCOSE [id number] 00:31:00* Test Item Value Reference Range Comments POC-GLUCOSE METER (BEAKER) (test xkua=5907) 120 mg/dL 70-110 TESTED AT [facility] [address] [place] [address] [id number] 21:36:00* Test Item Value Reference Range Comments PARTIAL THROMBOPLASTIN TIME (BEAKER) (test czxc=095) 31.0 seconds 22.5-36.0 Prior to initiating heparinTROPONIN [id number] 21:27:00* Test Item Value Reference Range Comments TROPONIN I (BEAKER) (test qtmb=515) 0.09 ng/mL 0.00-0.03 Troponin I (TnI) levels must be interpreted in the context of the presenting sym ptoms and the clinical findings. Elevated TnI levels indicate myocardial damage, but are not specific for ischemic heart disease. Elevated TnI levels are seen in patients with other cardiac conditions (including myocarditis and congestive h eart failure), and slight TnI elevations occur in patients with other conditions , including sepsis, renal failure, acidosis, acute neurological disease, and per sistent tachyarrhythmia.PLATELET [id number] 21:05:00* Test Item Value Reference Range Comments PLATELET COUNT (BEAKER) (test bjyc=336) 380 K/CU MM 150-450 HEMOGLOBIN AND [id number] 20:07:00* Test Item Value Reference Range Comments HEMOGLOBIN (BEAKER) (test hihd=598) 10.7 GM/DL 11.2-15.7 HEMATOCRIT (BEAKER) (test knan=302) 32.7 % 34.1-44.9 [id number] 19:53:00* Test Item Value Reference Range Comments MAGNESIUM (BEAKER) (test leql=826) 1.9 mg/dL 1.6-2.6 Please check 1h after 2nd dose of magnesiumBASIC METABOLIC [id number] 19:53:00* Test Item Value Reference Range Comments SODIUM (BEAKER) (test dxpo=735) 141 meq/L 136-145 POTASSIUM (BEAKER) (test yiqy=189) 3.7 meq/L 3.5-5.1 CHLORIDE (BEAKER) (test lovu=298) 115 meq/L 98-107 CO2 (BEAKER) (test fwrp=899) 16 meq/L 22-29 BLOOD UREA NITROGEN (BEAKER) (test opdq=449) 10 mg/dL 7-21 CREATININE (BEAKER) (test pqzr=863) 0.65 mg/dL 0.57-1.25 GLUCOSE RANDOM (BEAKER) (test acri=374) 105 mg/dL 70-105 CALCIUM (BEAKER) (test ynql=914) 8.4 mg/dL 8.4-10.2 EGFR (BEAKER) (test ljze=9386) 93 mL/min/1.73 sq m ESTIMATED GFR IS NOT ACCURATE CREATININE CLEARANCE IN PREDICTING GLOMERULAR FILTRATION RATE. ESTIMATED GFR IS NOT APPLICABLE FOR DIALYSIS PATIENTS. Please check 1h after 2nd dose of magnesiumPOCT-GLUCOSE [id number] 19:02:00 * Test Item Value Reference Range Comments POC-GLUCOSE METER (BEAKER) (test byod=0654) 112 mg/dL 70-110 TESTED AT [place] [id number] [facility] [address] POCT-GLUCOSE [id number] 14:36:00* Test Item Value Reference Range Comments POC-GLUCOSE METER (BEAKER) (test guzv=5503) 127 mg/dL 70-110 TESTED AT [address] [address] BASIC METABOLIC [id number] 11:43:00* Test Item Value Reference Range Comments SODIUM (BEAKER) (test kqpd=757) 141 meq/L 136-145 POTASSIUM (BEAKER) (test yupa=922) 3.6 meq/L 3.5-5.1 CHLORIDE (BEAKER) (test zgpw=052) 116 meq/L 98-107 CO2 (BEAKER) (test imzb=839) 16 meq/L 22-29 BLOOD UREA NITROGEN (BEAKER) (test mqhp=591) 9 mg/dL 7-21 CREATININE (BEAKER) (test vdxn=394) 0.58 mg/dL 0.57-1.25 GLUCOSE RANDOM (BEAKER) (test ylvu=482) 65 mg/dL 70-105 CALCIUM (BEAKER) (test txag=165) 8.3 mg/dL 8.4-10.2 EGFR (BEAKER) (test sgfh=5788) 106 mL/min/1.73 sq m ESTIMATED GFR IS NOT ACCURATE CREATININE CLEARANCE IN PREDICTING GLOMERULAR FILTRATION RATE. ESTIMATED GFR IS NOT APPLICABLE FOR DIALYSIS PATIENTS. POCT-GLUCOSE [id number] 11:34:00* Test Item Value Reference Range Comments POC-GLUCOSE METER (BEAKER) (test mbks=3322) 72 mg/dL 70-110 TESTED AT [facility] [address] [address] RAD, CHEST, 1 VIEW, NON [id number] 09:08:00Reason for exam:->pleural effusion, pulmonary htn, dyspnea, chf, extubated 06/30 AMShould this be performed at the bedside?->YesFINAL REPORT AP chest HISTORY: Effusion. COMPARISON: 06/29/2018. IMPRESSION: Endotracheal tube removed. A left IJ catheter present. Stable cardiac silhouette. Interval improvement in interstitial prominence. Focal opacity in the left midlung unchanged. Small left effusion. No pneumothorax. Signed: Fouzia Araujoeport Verified Date/Time: 06/30/2018 09:08:40 Reading Location: [address] Ortho Consult Reading Room -GLUCOSE [id number] 07:26:00* Test Item Value Reference Range Comments POC-GLUCOSE METER (BEAKER) (test rfyx=3893) 114 mg/dL 70-110 TESTED AT [place] [id number] [facility] [address] [id number] 05:26:00* Test Item Value Reference Range Comments PHOSPHORUS (BEAKER) (test btst=141) 2.7 mg/dL 2.3-4.7 [id number] 05:26:00* Test Item Value Reference Range Comments MAGNESIUM (BEAKER) (test cksy=859) 1.2 mg/dL 1.6-2.6 BASIC METABOLIC [id number] 05:26:00* Test Item Value Reference Range Comments SODIUM (BEAKER) (test tfko=757) 141 meq/L 136-145 POTASSIUM (BEAKER) (test kzdj=239) 3.5 meq/L 3.5-5.1 CHLORIDE (BEAKER) (test mdto=644) 118 meq/L 98-107 CO2 (BEAKER) (test hgoi=798) 18 meq/L 22-29 BLOOD UREA NITROGEN (BEAKER) (test myag=212) 10 mg/dL 7-21 CREATININE (BEAKER) (test sltc=361) 0.61 mg/dL 0.57-1.25 GLUCOSE RANDOM (BEAKER) (test jiet=989) 78 mg/dL 70-105 CALCIUM (BEAKER) (test dzei=041) 8.5 mg/dL 8.4-10.2 EGFR (BEAKER) (test nqzp=0676) 100 mL/min/1.73 sq m ESTIMATED GFR IS NOT ACCURATE CREATININE CLEARANCE IN PREDICTING GLOMERULAR FILTRATION RATE. ESTIMATED GFR IS NOT APPLICABLE FOR DIALYSIS PATIENTS. CBC W/PLT COUNT & AUTO [id number] 04:55:00* Test Item Value Reference Range Comments WHITE BLOOD CELL COUNT (BEAKER) (test nrxe=041) 8.3 K/ L 3.5-10.5 RED BLOOD CELL COUNT (BEAKER) (test jddg=953) 3.28 M/ L 3.93-5.22 HEMOGLOBIN (BEAKER) (test watv=831) 8.9 GM/DL 11.2-15.7 HEMATOCRIT (BEAKER) (test bmil=808) 27.7 % 34.1-44.9 MEAN CORPUSCULAR VOLUME (BEAKER) (test ickt=590) 84.5 fL 79.4-94.8 MEAN CORPUSCULAR HEMOGLOBIN (BEAKER) (test irsn=070) 27.1 pg 25.6-32.2 MEAN CORPUSCULAR HEMOGLOBIN CONC (BEAKER) (test lvmb=433) 32.1 GM/DL 32.2-35.5 RED CELL DISTRIBUTION WIDTH (BEAKER) (test nfug=277) 18.2 % 11.7-14.4 PLATELET COUNT (BEAKER) (test paff=541) 284 K/CU MM 150-450 MEAN PLATELET VOLUME (BEAKER) (test lftk=024) 11.4 fL 9.4-12.3 NUCLEATED RED BLOOD CELLS (BEAKER) (test vqct=082) 0 /100 WBC 0-0 NEUTROPHILS RELATIVE PERCENT (BEAKER) (test fcud=914) 79 % LYMPHOCYTES RELATIVE PERCENT (BEAKER) (test umzw=152) 12 % MONOCYTES RELATIVE PERCENT (BEAKER) (test kzpl=485) 7 % EOSINOPHILS RELATIVE PERCENT (BEAKER) (test xski=254) 2 % BASOPHILS RELATIVE PERCENT (BEAKER) (test miel=641) 0 % NEUTROPHILS ABSOLUTE COUNT (BEAKER) (test vrxc=882) 6.49 K/ L 1.56-6.13 LYMPHOCYTES ABSOLUTE COUNT (BEAKER) (test lgvz=604) 0.98 K/ L 1.18-3.74 MONOCYTES ABSOLUTE COUNT (BEAKER) (test vlij=710) 0.59 K/ L 0.24-0.36 EOSINOPHILS ABSOLUTE COUNT (BEAKER) (test xuhv=752) 0.15 K/ L 0.04-0.36 BASOPHILS ABSOLUTE COUNT (BEAKER) (test eikn=390) 0.00 K/ L 0.01-0.08 IMMATURE GRANULOCYTES-RELATIVE PERCENT (BEAKER) (test txcs=2097) 1 % 0-1 POCT-GLUCOSE [id number] 00:34:00* Test Item Value Reference Range Comments POC-GLUCOSE METER (BEAKER) (test nutu=7108) 101 mg/dL 70-110 TESTED AT [place] [address] BASIC METABOLIC [id number] 21:33:00* Test Item Value Reference Range Comments SODIUM (BEAKER) (test acdw=192) 143 meq/L 136-145 POTASSIUM (BEAKER) (test aorf=940) 3.9 meq/L 3.5-5.1 CHLORIDE (BEAKER) (test eixh=654) 121 meq/L 98-107 CO2 (BEAKER) (test tfix=662) 16 meq/L 22-29 BLOOD UREA NITROGEN (BEAKER) (test tfdb=065) 11 mg/dL 7-21 CREATININE (BEAKER) (test ovme=688) 0.62 mg/dL 0.57-1.25 GLUCOSE RANDOM (BEAKER) (test jmpe=220) 89 mg/dL 70-105 CALCIUM (BEAKER) (test sekz=591) 8.7 mg/dL 8.4-10.2 EGFR (BEAKER) (test rdqf=3916) 98 mL/min/1.73 sq m ESTIMATED GFR IS NOT ACCURATE CREATININE CLEARANCE IN PREDICTING GLOMERULAR FILTRATION RATE. ESTIMATED GFR IS NOT APPLICABLE FOR DIALYSIS PATIENTS. POCT-GLUCOSE [id number] 17:49:00* Test Item Value Reference Range Comments POC-GLUCOSE METER (BEAKER) (test ytil=4139) 118 mg/dL 70-110 TESTED AT [place] [id number] BASIC METABOLIC [id number] 16:30:00* Test Item Value Reference Range Comments SODIUM (BEAKER) (test ptdw=427) 140 meq/L 136-145 POTASSIUM (BEAKER) (test cvel=592) 3.8 meq/L 3.5-5.1 CHLORIDE (BEAKER) (test tout=229) 119 meq/L 98-107 CO2 (BEAKER) (test ztrf=196) 16 meq/L 22-29 BLOOD UREA NITROGEN (BEAKER) (test wwus=988) 11 mg/dL 7-21 CREATININE (BEAKER) (test maob=836) 0.65 mg/dL 0.57-1.25 GLUCOSE RANDOM (BEAKER) (test xias=156) 103 mg/dL 70-105 CALCIUM (BEAKER) (test jukg=561) 8.5 mg/dL 8.4-10.2 EGFR (BEAKER) (test jkuf=0798) 93 mL/min/1.73 sq m ESTIMATED GFR IS NOT ACCURATE CREATININE CLEARANCE IN PREDICTING GLOMERULAR FILTRATION RATE. ESTIMATED GFR IS NOT APPLICABLE FOR DIALYSIS PATIENTS. VITAMIN B12 AND [id number] 16:17:00* Test Item Value Reference Range Comments VITAMIN B12 (BEAKER) (test linu=660) 1551 pg/mL 211-911 FOLATE (BEAKER) (test oawr=402) 10.1 ng/mL >=5.4 POCT-GLUCOSE [id number] 12:13:00* Test Item Value Reference Range Comments POC-GLUCOSE METER (BEAKER) (test dtyu=5588) 146 mg/dL 70-110 TESTED AT [address] [address] BASIC METABOLIC [id number] 11:42:00* Test Item Value Reference Range Comments SODIUM (BEAKER) (test javd=045) 143 meq/L 136-145 POTASSIUM (BEAKER) (test hudn=868) 3.8 meq/L 3.5-5.1 CHLORIDE (BEAKER) (test hijr=735) 121 meq/L 98-107 CO2 (BEAKER) (test fdfl=604) 16 meq/L 22-29 BLOOD UREA NITROGEN (BEAKER) (test ivbq=341) 11 mg/dL 7-21 CREATININE (BEAKER) (test cnoq=897) 0.68 mg/dL 0.57-1.25 GLUCOSE RANDOM (BEAKER) (test hgsa=186) 117 mg/dL 70-105 CALCIUM (BEAKER) (test qzbm=178) 8.3 mg/dL 8.4-10.2 EGFR (BEAKER) (test jekc=8082) 88 mL/min/1.73 sq m ESTIMATED GFR IS NOT ACCURATE CREATININE CLEARANCE IN PREDICTING GLOMERULAR FILTRATION RATE. ESTIMATED GFR IS NOT APPLICABLE FOR DIALYSIS PATIENTS. LACTIC ACID, VENOUS, WHOLE [id number] 09:30:00* Test Item Value Reference Range Comments LACTATE BLOOD VENOUS (2) (BEAKER) (test owwq=7043) 1.1 mmol/L 0.5-2.2 RETICULOCYTE [id number] 09:20:00* Test Item Value Reference Range Comments RETICULOCYTE COUNT PCT (BEAKER) (test nzie=272) 0.5 % 0.5-1.7 BASIC METABOLIC [id number] 07:51:00* Test Item Value Reference Range Comments SODIUM (BEAKER) (test ghwf=737) 144 meq/L 136-145 POTASSIUM (BEAKER) (test zeya=033) 4.0 meq/L 3.5-5.1 CHLORIDE (BEAKER) (test tkiw=454) 124 meq/L 98-107 CO2 (BEAKER) (test wlbp=433) 15 meq/L 22-29 BLOOD UREA NITROGEN (BEAKER) (test lizs=105) 11 mg/dL 7-21 CREATININE (BEAKER) (test hidf=447) 0.69 mg/dL 0.57-1.25 GLUCOSE RANDOM (BEAKER) (test ptxo=975) 142 mg/dL 70-105 CALCIUM (BEAKER) (test rvnj=710) 8.3 mg/dL 8.4-10.2 EGFR (BEAKER) (test csfz=3838) 86 mL/min/1.73 sq m ESTIMATED GFR IS NOT ACCURATE CREATININE CLEARANCE IN PREDICTING GLOMERULAR FILTRATION RATE. ESTIMATED GFR IS NOT APPLICABLE FOR DIALYSIS PATIENTS. RAD, CHEST, 1 VIEW, NON [id number] 07:44:00Reason for exam:->intubatedShould this be performed at the bedside?->YesFINAL REPORT Chest, one view. HISTORY: intubated COMPARISON: Radiograph from 06/28/2018 IMPRESSION: The endotracheal is 1.9 cm above the rashi. Support lines and tubes are otherwise unchanged in position. The left cardiac atelectasis unchanged. Scattered interstitial and alveolar opacities of the lungs are unchanged. No pneumothorax. The cardiac silhouette is unchanged. No acute bony abnormality. Signed: Christian Giron MDReport Verified Date/Time: 06/29/2018 07:44:26 Reading Location: [facility] C013Y CT Body Reading Room [id number] 07:36:00* Test Item Value Reference Range Comments PHOSPHORUS (BEAKER) (test aemf=335) 2.6 mg/dL 2.3-4.7 [id number] 07:36:00* Test Item Value Reference Range Comments MAGNESIUM (BEAKER) (test qooq=268) 1.6 mg/dL 1.6-2.6 CREATINE KINASE (CK)2018-06-29 07:36:00* Test Item Value Reference Range Comments CREATINE KINASE TOTAL (BEAKER) (test ascs=765) 22 U/L 29-200 VANCOMYCIN LEVEL, [id number] 07:12:00* Test Item Value Reference Range Comments VANCOMYCIN RANDOM (BEAKER) (test wevs=938) 11.5 ug/mL Reference Range: No NormalsCBC W/PLT COUNT & AUTO [id number] 07:07:00* Test Item Value Reference Range Comments WHITE BLOOD CELL COUNT (BEAKER) (test tqov=718) 8.1 K/ L 3.5-10.5 RED BLOOD CELL COUNT (BEAKER) (test rtem=096) 2.40 M/ L 3.93-5.22 HEMOGLOBIN (BEAKER) (test trkj=023) 6.4 GM/DL 11.2-15.7 HEMATOCRIT (BEAKER) (test dqvn=325) 21.0 % 34.1-44.9 MEAN CORPUSCULAR VOLUME (BEAKER) (test thir=702) 87.5 fL 79.4-94.8 Discordant MCV result compared to previous one; Clinical correlation required. MEAN CORPUSCULAR HEMOGLOBIN (BEAKER) (test idkx=614) 26.7 pg 25.6-32.2 MEAN CORPUSCULAR HEMOGLOBIN CONC (BEAKER) (test xhia=648) 30.5 GM/DL 32.2-35.5 RED CELL DISTRIBUTION WIDTH (BEAKER) (test kium=409) 20.1 % 11.7-14.4 PLATELET COUNT (BEAKER) (test pkfv=142) 219 K/CU MM 150-450 MEAN PLATELET VOLUME (BEAKER) (test zxlq=983) 11.8 fL 9.4-12.3 NUCLEATED RED BLOOD CELLS (BEAKER) (test pmca=345) 1 /100 WBC 0-0 NEUTROPHILS RELATIVE PERCENT (BEAKER) (test ygss=796) 73 % LYMPHOCYTES RELATIVE PERCENT (BEAKER) (test euje=411) 16 % MONOCYTES RELATIVE PERCENT (BEAKER) (test hkqf=135) 8 % EOSINOPHILS RELATIVE PERCENT (BEAKER) (test ynyd=068) 2 % BASOPHILS RELATIVE PERCENT (BEAKER) (test qapi=203) 0 % NEUTROPHILS ABSOLUTE COUNT (BEAKER) (test mrlk=007) 5.92 K/ L 1.56-6.13 LYMPHOCYTES ABSOLUTE COUNT (BEAKER) (test orjm=880) 1.31 K/ L 1.18-3.74 MONOCYTES ABSOLUTE COUNT (BEAKER) (test opva=073) 0.63 K/ L 0.24-0.36 EOSINOPHILS ABSOLUTE COUNT (BEAKER) (test qydi=717) 0.13 K/ L 0.04-0.36 BASOPHILS ABSOLUTE COUNT (BEAKER) (test znjx=543) 0.01 K/ L 0.01-0.08 IMMATURE GRANULOCYTES-RELATIVE PERCENT (BEAKER) (test gxku=4486) 1 % 0-1 BLOOD GAS, [id number] 05:26:00* Test Item Value Reference Range Comments PH ARTERIAL (BEAKER) (test rciw=663) 7.43 7.35-7.45 PCO2 ARTERIAL (BEAKER) (test yyqj=551) 25 mmHg 35-45 PO2 ARTERIAL (BEAKER) (test skue=902) 213 mmHg 80-90 O2 SATURATION ARTERIAL (BEAKER) (test xrif=653) 99.5 % 96.0-97.0 HCO3 ARTERIAL (BEAKER) (test zczu=919) 17 mmol/L 21-29 BASE EXCESS ARTERIAL (BEAKER) (test enwv=397) -6.9 mmol/L -2.0-3.0 PATIENT TEMPERATURE (BEAKER) (test brhk=4686) 37.0 C FIO2 (BEAKER) (test obwq=2312) 40.0 % ANAEROBIC [id number] 02:45:00* Test Item Value Reference Range Comments CULTURE (BEAKER) (test hunh=1838) No anaerobes isolated BASIC METABOLIC [id number] 01:04:00* Test Item Value Reference Range Comments SODIUM (BEAKER) (test yruh=736) 144 meq/L 136-145 POTASSIUM (BEAKER) (test ixwa=033) 4.0 meq/L 3.5-5.1 CHLORIDE (BEAKER) (test oaik=721) 123 meq/L 98-107 CO2 (BEAKER) (test dgka=264) 17 meq/L 22-29 BLOOD UREA NITROGEN (BEAKER) (test ofnd=248) 11 mg/dL 7-21 CREATININE (BEAKER) (test tmwb=409) 0.67 mg/dL 0.57-1.25 GLUCOSE RANDOM (BEAKER) (test xcwq=429) 141 mg/dL 70-105 CALCIUM (BEAKER) (test meyg=149) 8.4 mg/dL 8.4-10.2 EGFR (BEAKER) (test hydn=6947) 89 mL/min/1.73 sq m ESTIMATED GFR IS NOT ACCURATE CREATININE CLEARANCE IN PREDICTING GLOMERULAR FILTRATION RATE. ESTIMATED GFR IS NOT APPLICABLE FOR DIALYSIS PATIENTS. POCT-GLUCOSE [id number] 00:50:00* Test Item Value Reference Range Comments POC-GLUCOSE METER (BEAKER) (test ljqj=8978) 189 mg/dL 70-110 TESTED AT [facility] [address] [address] POCT-GLUCOSE [id number] 19:51:00* Test Item Value Reference Range Comments POC-GLUCOSE METER (BEAKER) (test wwhc=6365) 205 mg/dL 70-110 TESTED AT [facility] [address] [address] BASIC METABOLIC [id number] 19:43:00* Test Item Value Reference Range Comments SODIUM (BEAKER) (test lxxq=262) 146 meq/L 136-145 POTASSIUM (BEAKER) (test lkqk=358) 4.1 meq/L 3.5-5.1 CHLORIDE (BEAKER) (test nnnu=691) 125 meq/L 98-107 CO2 (BEAKER) (test grnf=115) 18 meq/L 22-29 BLOOD UREA NITROGEN (BEAKER) (test ofpe=420) 11 mg/dL 7-21 CREATININE (BEAKER) (test bzye=782) 0.69 mg/dL 0.57-1.25 GLUCOSE RANDOM (BEAKER) (test ruid=548) 167 mg/dL 70-105 CALCIUM (BEAKER) (test fmmz=935) 8.6 mg/dL 8.4-10.2 EGFR (BEAKER) (test yexp=4793) 86 mL/min/1.73 sq m ESTIMATED GFR IS NOT ACCURATE CREATININE CLEARANCE IN PREDICTING GLOMERULAR FILTRATION RATE. ESTIMATED GFR IS NOT APPLICABLE FOR DIALYSIS PATIENTS. MR, SPINE, LUMBAR, [id number] 18:43:00FINAL REPORT MRI lumbar spine with and without contrast 06/28/2018 at 1825. CLINICAL HISTORY: Bacteremia. TECHNIQUE: MRI of the lumbar spine was performed, utilizing the following sequences: Sagittal T1, T2, STIR; axial T1 and T2; postcontrast sagittal and axial T1 with fat suppression. COMPARISON: None available. FINDINGS: There is no evidence for infection within or about the lumbar spine. There is arcuate dextroscoliosis, apex L4-5. There is degeneration mediated left lateral subluxation of L2 on L3, with degeneration mediated right lateral subluxation of L4 on L5. There is degeneration mediated grade 1 anterolisthesis of L3 on L4. Bone marrow signal intensity is unremarkable. The conus medullaris terminates at L1. The distal spinal cord and terminal nerve roots are unremarkable. Spinal canal diameter is within normal limits. There are relativ humaira extensive degenerative changes resulting in varying degrees of foraminal heriberto nosis, with severe central canal stenosis at L3-4 and moderate central canal heriberto nosis at L2-3, L4-5, and L5-S1. There is deconditioning of the posterior inferio r paraspinal musculature. There is anasarca in the dependent soft tissue. IMPRES JAYLEEN: 1. No evidence for infection within or about the lumbar spine. 2. Chronic appearing degenerative changes. Signed: Minh Arguello Verified Date/T helen: 06/28/2018 18:43:19 Reading Location: [facility] Radiology Reading Room , SPINE, CERVICAL, [id number] 18:18:00FINAL REPORT MRI cervical spine with and without contrast 06/28/2018 at 1808. CLINICAL HISTORY: Bacteremia. TECHNIQUE: MRI of the cervical spine was performed utilizing the following sequences: Sagittal T1, T2, STIR; axial T1 and T2; postcontrast sagittal and axial T1. COMPARISON: None available. FINDINGS: There is no evidence for infectious process within or about the cervical spine. There is mild arcuate levoscoliosis, with degeneration mediated shallow anterolisthesis of C3 on C4, C4 on C5, and C6 on C7. There is compensatory retrolisthesis of C5 on C6. The skeleton is osteopenic. There are no obstructive osseous lesions. The spinal cord is normal in size and signal intensity. Spinal canal diameter is within normal limits. There are multilevel degenerative changes resulting in varying degrees of foraminal stenosis, without high-grade central canal stenosis. There are partially visualized bilateral pleural effusions with a djacent dependent atelectasis. IMPRESSION: 1. No evidence for infectious process within or about the cervical spine. 2. Chronic appearing degenerative changes. 3. Bilateral pleural effusions with adjacent dependent atelectasis. Superimposed pneumonia should be excluded clinically. Signed: Minh Arguello Date/Time: 06/28/2018 18:18:14 Reading Location: [facility] 06 :18 PM MR, SPINE, THORACIC, [id number] 17:56:00FINAL REPORT MRI thoracic spine with and without contrast 06/28/2018 5:54 PM CLINICAL HISTORY: epidural abscess, persistent MRSA bacteremia TECHNIQUE: MRI of the thoracic spine was performed utilizing the following sequences: Sagittal T1, T2, STIR; axial T1 and T2; postcontrast sagittal and axial T1. COMPARISON: None available FINDINGS: There is no infectious process within are about the thoracic spine. There is no fracture or malalignment. The skeleton is osteopenic. There are no osteolytic or osteoblastic lesions. The spinal cord is normal in size and signal intensity. Spinal canal diameter is within normal limits. There are multilevel degenerative changes, without high-grade central canal stenosis. There are moderate volume right and small volume left pleural effusions with adjacent dependent atelectasis. IMPRESSION: 1. No evidence for infectious process within or about the thoracic spine. 2. Chronic appearing degenerative changes, without spinal canal compromise. 3. Bilateral pleural effusions with adjacent dependent atelectasis. Superimposed pneumonia should be excreted clini rachael. Signed: Minh Arguello Verified Date/Time: 06/28/2018 17:56:14 Reading Location: [facility] Radiology Reading Room , CHEST, 1 VIEW, NON DEPT 2018-06-28 13:31:00Reason for exam:->post-intubationShould this be performed at the bedside?->YesFINAL REPORT TECHNIQUE: Frontal chest radiograph dated 06/28/2018. CLINICAL HISTORY: Postintubation COMPARISON STUDY: Chest radiograph performed 06/27/2018 IMPRESSION:The endotracheal tube is at the level of the rashi and should be pulled back approximately 5 cm. Left-sided vascular line and enteric tube are stable. There is no change in bilateral airspace opacities. No pleural effusion or pneumothorax. Cardiomediastinal silhouette is normal in size. No pulmonary edema. Bones are osteopenic. Signed: Luna Ospinaeport Verified Date/Time: 06/28/2018 13:31:03 Reading Location: [facility] Radiology Reading Room ICALLY OBTAINED CULTURE + GRAM [id number] 13:20:00* Test Item Value Reference Range Comments CULTURE (BEAKER) (test mnju=2849) 2+ Same organism has been isolated from cultures(s) of the same body site and collection date. Repeat identification and susceptibility testing performed only after consultation with the clinical microbiology laboratory.Refer to previous culture ofMethicillin resistant Staphylococcus aureus GRAM STAIN RESULT (BEAKER) (test fiom=2568) <1+ WBCs GRAM STAIN RESULT (BEAKER) (test fntn=095672) No organisms seen BLOOD [id number] 10:46:00* Test Item Value Reference Range Comments CULTURE (BEAKER) (test rvrh=6420) From Aerobic And Anaerobic Bottles Same organism has been isolated from cultures(s) of the same body site within 3 days. Repeat identification and susceptibility testing performed only after consultation with the clinical microbiology laboratory.Refer to previous culture ofMethicillin resistant Staphylococcus aureus GRAM STAIN RESULT (BEAKER) (test gvir=2487) From aerobic and anaerobic bottles: gram positive cocci in clusters POCT-GLUCOSE [id number] 06:46:00* Test Item Value Reference Range Comments POC-GLUCOSE METER (BEAKER) (test qnsu=3895) 213 mg/dL 70-110 TESTED AT [facility] [address] [address] CBC W/PLT COUNT & AUTO [id number] 04:48:00* Test Item Value Reference Range Comments WHITE BLOOD CELL COUNT (BEAKER) (test nhuz=182) 13.8 K/ L 3.5-10.5 RED BLOOD CELL COUNT (BEAKER) (test zjoq=088) 3.04 M/ L 3.93-5.22 HEMOGLOBIN (BEAKER) (test zcny=112) 8.2 GM/DL 11.2-15.7 HEMATOCRIT (BEAKER) (test qnqc=533) 25.3 % 34.1-44.9 MEAN CORPUSCULAR VOLUME (BEAKER) (test limz=758) 83.2 fL 79.4-94.8 MEAN CORPUSCULAR HEMOGLOBIN (BEAKER) (test iozu=340) 27.0 pg 25.6-32.2 MEAN CORPUSCULAR HEMOGLOBIN CONC (BEAKER) (test lste=309) 32.4 GM/DL 32.2-35.5 RED CELL DISTRIBUTION WIDTH (BEAKER) (test anfl=161) 19.4 % 11.7-14.4 PLATELET COUNT (BEAKER) (test xcop=026) 275 K/CU MM 150-450 MEAN PLATELET VOLUME (BEAKER) (test gnuv=667) 11.5 fL 9.4-12.3 NUCLEATED RED BLOOD CELLS (BEAKER) (test zxba=096) 0 /100 WBC 0-0 NEUTROPHILS RELATIVE PERCENT (BEAKER) (test yosq=947) 86 % LYMPHOCYTES RELATIVE PERCENT (BEAKER) (test kwxu=172) 8 % MONOCYTES RELATIVE PERCENT (BEAKER) (test gtxz=844) 5 % EOSINOPHILS RELATIVE PERCENT (BEAKER) (test cpxd=564) 0 % BASOPHILS RELATIVE PERCENT (BEAKER) (test oabq=180) 0 % NEUTROPHILS ABSOLUTE COUNT (BEAKER) (test nkra=676) 11.83 K/ L 1.56-6.13 LYMPHOCYTES ABSOLUTE COUNT (BEAKER) (test fuoc=607) 1.03 K/ L 1.18-3.74 MONOCYTES ABSOLUTE COUNT (BEAKER) (test blle=007) 0.74 K/ L 0.24-0.36 EOSINOPHILS ABSOLUTE COUNT (BEAKER) (test ywnr=471) 0.02 K/ L 0.04-0.36 BASOPHILS ABSOLUTE COUNT (BEAKER) (test bvuu=310) 0.01 K/ L 0.01-0.08 IMMATURE GRANULOCYTES-RELATIVE PERCENT (BEAKER) (test nwmz=0948) 1 % 0-1 BASIC METABOLIC [id number] 04:44:00* Test Item Value Reference Range Comments SODIUM (BEAKER) (test ljfm=771) 148 meq/L 136-145 POTASSIUM (BEAKER) (test lbaa=518) 3.3 meq/L 3.5-5.1 CHLORIDE (BEAKER) (test tjnt=458) 124 meq/L 98-107 CO2 (BEAKER) (test ktlt=493) 17 meq/L 22-29 BLOOD UREA NITROGEN (BEAKER) (test iohl=035) 10 mg/dL 7-21 CREATININE (BEAKER) (test zpwn=117) 0.70 mg/dL 0.57-1.25 GLUCOSE RANDOM (BEAKER) (test ceva=384) 170 mg/dL 70-105 CALCIUM (BEAKER) (test cdtl=861) 9.2 mg/dL 8.4-10.2 EGFR (BEAKER) (test dbqn=7367) 85 mL/min/1.73 sq m ESTIMATED GFR IS NOT ACCURATE CREATININE CLEARANCE IN PREDICTING GLOMERULAR FILTRATION RATE. ESTIMATED GFR IS NOT APPLICABLE FOR DIALYSIS PATIENTS. POCT-GLUCOSE [id number] 00:29:00* Test Item Value Reference Range Comments POC-GLUCOSE METER (BEAKER) (test gioi=7088) 343 mg/dL 70-110 TESTED AT [facility] [address] [address] BASIC METABOLIC [id number] 22:20:00* Test Item Value Reference Range Comments SODIUM (BEAKER) (test nhmw=600) 146 meq/L 136-145 POTASSIUM (BEAKER) (test xcxv=065) 3.2 meq/L 3.5-5.1 CHLORIDE (BEAKER) (test vssv=495) 122 meq/L 98-107 CO2 (BEAKER) (test qxtt=639) 16 meq/L 22-29 BLOOD UREA NITROGEN (BEAKER) (test gech=551) 11 mg/dL 7-21 CREATININE (BEAKER) (test iibu=714) 0.72 mg/dL 0.57-1.25 GLUCOSE RANDOM (BEAKER) (test sewk=727) 249 mg/dL 70-105 CALCIUM (BEAKER) (test yscb=464) 9.4 mg/dL 8.4-10.2 EGFR (BEAKER) (test oddj=3628) 82 mL/min/1.73 sq m ESTIMATED GFR IS NOT ACCURATE CREATININE CLEARANCE IN PREDICTING GLOMERULAR FILTRATION RATE. ESTIMATED GFR IS NOT APPLICABLE FOR DIALYSIS PATIENTS. POCT-GLUCOSE [id number] 19:05:00* Test Item Value Reference Range Comments POC-GLUCOSE METER (BEAKER) (test bfnm=5056) 141 mg/dL 70-110 TESTED AT [address] [address] ANAEROBIC [id number] 15:56:00* Test Item Value Reference Range Comments CULTURE (BEAKER) (test welj=2679) No anaerobes isolated ANAEROBIC [id number] 15:56:00* Test Item Value Reference Range Comments CULTURE (BEAKER) (test egdu=0855) No anaerobes isolated ANAEROBIC [id number] 15:56:00* Test Item Value Reference Range Comments CULTURE (BEAKER) (test bdfb=1157) No anaerobes isolated CREATINE KINASE (CK)2018-06-27 14:23:00* Test Item Value Reference Range Comments CREATINE KINASE TOTAL (BEAKER) (test mgxx=029) 85 U/L 29-200 BASIC METABOLIC [id number] 14:23:00* Test Item Value Reference Range Comments SODIUM (BEAKER) (test erun=061) 147 meq/L 136-145 POTASSIUM (BEAKER) (test vvlc=819) 4.0 meq/L 3.5-5.1 CHLORIDE (BEAKER) (test jnsx=404) 123 meq/L 98-107 CO2 (BEAKER) (test nepf=130) 17 meq/L 22-29 BLOOD UREA NITROGEN (BEAKER) (test srjd=874) 11 mg/dL 7-21 CREATININE (BEAKER) (test cjij=605) 0.71 mg/dL 0.57-1.25 GLUCOSE RANDOM (BEAKER) (test vbgm=497) 128 mg/dL 70-105 CALCIUM (BEAKER) (test axyw=652) 10.1 mg/dL 8.4-10.2 EGFR (BEAKER) (test llef=2567) 84 mL/min/1.73 sq m ESTIMATED GFR IS NOT ACCURATE CREATININE CLEARANCE IN PREDICTING GLOMERULAR FILTRATION RATE. ESTIMATED GFR IS NOT APPLICABLE FOR DIALYSIS PATIENTS. [id number] 14:15:00* Test Item Value Reference Range Comments MAGNESIUM (BEAKER) (test cmrs=012) 2.2 mg/dL 1.6-2.6 RAD, CHEST, 1 VIEW, NON [id number] 10:25:00Reason for exam:->hypoxic respiratory falureShould this be performed at the bedside?->YesFINAL REPORT TECHNIQUE: Frontal chest radiograph dated 06/27/2018. CLINICAL HISTORY: Hypoxic respiratory failure COMPARISON STUDY: Chest radiograph dated 06/25/2018 IMPRESSION:Endotracheal tube has been removed. An enteric tube has been placed. The tip is below the edge of the film. Left-sided vascular line is unchanged. Stable bilateral airspace disease. No pleural effusion or pneumothorax. Cardiomediastinal silhouette is normal in size. No fracture. Si gned: Luna Ospina MDReport Verified Date/Time: 06/27/2018 10:25:13 Readi talha Location: [facility] Radiology Reading Room C METABOLIC [id number] 09:55:00 * Test Item Value Reference Range Comments SODIUM (BEAKER) (test hazc=872) 147 meq/L 136-145 POTASSIUM (BEAKER) (test reyp=596) 3.6 meq/L 3.5-5.1 CHLORIDE (BEAKER) (test emyx=352) 123 meq/L 98-107 CO2 (BEAKER) (test frag=717) 16 meq/L 22-29 BLOOD UREA NITROGEN (BEAKER) (test rdxv=824) 11 mg/dL 7-21 CREATININE (BEAKER) (test jewx=182) 0.68 mg/dL 0.57-1.25 GLUCOSE RANDOM (BEAKER) (test iapu=852) 78 mg/dL 70-105 CALCIUM (BEAKER) (test zllm=904) 10.1 mg/dL 8.4-10.2 EGFR (BEAKER) (test sbfq=1410) 88 mL/min/1.73 sq m ESTIMATED GFR IS NOT ACCURATE CREATININE CLEARANCE IN PREDICTING GLOMERULAR FILTRATION RATE. ESTIMATED GFR IS NOT APPLICABLE FOR DIALYSIS PATIENTS. POCT-GLUCOSE [id number] 06:45:00* Test Item Value Reference Range Comments POC-GLUCOSE METER (BEAKER) (test oleg=4307) 95 mg/dL 70-110 TESTED AT [address] [address] BASIC METABOLIC [id number] 04:55:00* Test Item Value Reference Range Comments SODIUM (BEAKER) (test tjgw=480) 148 meq/L 136-145 POTASSIUM (BEAKER) (test qhne=120) 4.0 meq/L 3.5-5.1 CHLORIDE (BEAKER) (test avro=636) 126 meq/L 98-107 CO2 (BEAKER) (test jlpu=899) 17 meq/L 22-29 BLOOD UREA NITROGEN (BEAKER) (test qztu=449) 11 mg/dL 7-21 CREATININE (BEAKER) (test ezpk=190) 0.71 mg/dL 0.57-1.25 GLUCOSE RANDOM (BEAKER) (test ncuo=029) 76 mg/dL 70-105 CALCIUM (BEAKER) (test xvwx=089) 10.0 mg/dL 8.4-10.2 EGFR (BEAKER) (test pqud=8999) 84 mL/min/1.73 sq m ESTIMATED GFR IS NOT ACCURATE CREATININE CLEARANCE IN PREDICTING GLOMERULAR FILTRATION RATE. ESTIMATED GFR IS NOT APPLICABLE FOR DIALYSIS PATIENTS. [id number] 04:51:00* Test Item Value Reference Range Comments MAGNESIUM (BEAKER) (test knnr=928) 1.2 mg/dL 1.6-2.6 CBC W/PLT COUNT & AUTO [id number] 04:30:00* Test Item Value Reference Range Comments WHITE BLOOD CELL COUNT (BEAKER) (test vmpj=919) 11.7 K/ L 3.5-10.5 RED BLOOD CELL COUNT (BEAKER) (test qoor=422) 2.94 M/ L 3.93-5.22 HEMOGLOBIN (BEAKER) (test usin=001) 8.0 GM/DL 11.2-15.7 HEMATOCRIT (BEAKER) (test yzke=847) 24.4 % 34.1-44.9 MEAN CORPUSCULAR VOLUME (BEAKER) (test aovi=766) 83.0 fL 79.4-94.8 MEAN CORPUSCULAR HEMOGLOBIN (BEAKER) (test dsox=138) 27.2 pg 25.6-32.2 MEAN CORPUSCULAR HEMOGLOBIN CONC (BEAKER) (test mtnn=117) 32.8 GM/DL 32.2-35.5 RED CELL DISTRIBUTION WIDTH (BEAKER) (test wtyx=849) 19.4 % 11.7-14.4 PLATELET COUNT (BEAKER) (test phrk=977) 194 K/CU MM 150-450 MEAN PLATELET VOLUME (BEAKER) (test wkwc=792) 11.3 fL 9.4-12.3 NUCLEATED RED BLOOD CELLS (BEAKER) (test gyyb=614) 0 /100 WBC 0-0 NEUTROPHILS RELATIVE PERCENT (BEAKER) (test dnbu=020) 85 % LYMPHOCYTES RELATIVE PERCENT (BEAKER) (test ddtx=320) 8 % MONOCYTES RELATIVE PERCENT (BEAKER) (test amrw=384) 6 % EOSINOPHILS RELATIVE PERCENT (BEAKER) (test ojyd=719) 0 % BASOPHILS RELATIVE PERCENT (BEAKER) (test krgg=373) 0 % NEUTROPHILS ABSOLUTE COUNT (BEAKER) (test nvfe=490) 9.88 K/ L 1.56-6.13 LYMPHOCYTES ABSOLUTE COUNT (BEAKER) (test dapz=360) 0.98 K/ L 1.18-3.74 MONOCYTES ABSOLUTE COUNT (BEAKER) (test pdib=748) 0.71 K/ L 0.24-0.36 EOSINOPHILS ABSOLUTE COUNT (BEAKER) (test zxqp=932) 0.00 K/ L 0.04-0.36 BASOPHILS ABSOLUTE COUNT (BEAKER) (test rifs=596) 0.01 K/ L 0.01-0.08 IMMATURE GRANULOCYTES-RELATIVE PERCENT (BEAKER) (test ahld=9482) 1 % 0-1 POCT-GLUCOSE [id number] 23:59:00* Test Item Value Reference Range Comments POC-GLUCOSE METER (BEAKER) (test pgyb=5712) 206 mg/dL 70-110 TESTED AT [facility] [address] [address] SURGICALLY OBTAINED CULTURE + GRAM [id number] 18:54:00* Test Item Value Reference Range Comments CULTURE (BEAKER) (test qess=2796) 2+ Same organism has been isolated from cultures(s) of the same body site and collection date. Repeat identification and susceptibility testing performed only after consultation with the clinical microbiology laboratory.Refer to previous culture ofMethicillin resistant Staphylococcus aureus GRAM STAIN RESULT (BEAKER) (test nbow=3706) <1+ WBCs GRAM STAIN RESULT (BEAKER) (test sgzk=309696) No organisms seen SURGICALLY OBTAINED CULTURE + GRAM [id number] 18:53:00* Test Item Value Reference Range Comments CULTURE (BEAKER) (test dqdb=0153) METHICILLIN RESISTANT STAPHYLOCOCCUS AUREUS 3+ Methicillin resistant Staphylococcus aureus Clindamycin (test code=10) Erythromycin (test code=4) Linezolid (test code=40) Oxacillin (test code=14) Rifampin (test code=43) Tetracycline (test code=2) Trimethoprim + Sulfamethoxazole (test code=47) Vancomycin (test code=13) GRAM STAIN RESULT (BEAKER) (test vcry=4843) <1+ WBCs GRAM STAIN RESULT (BEAKER) (test lysz=626690) No organisms seen BASIC METABOLIC [id number] 14:04:00* Test Item Value Reference Range Comments SODIUM (BEAKER) (test arsz=027) 148 meq/L 136-145 POTASSIUM (BEAKER) (test hedi=941) 2.8 meq/L 3.5-5.1 CHLORIDE (BEAKER) (test yrqr=973) 123 meq/L 98-107 CO2 (BEAKER) (test ihch=055) 16 meq/L 22-29 BLOOD UREA NITROGEN (BEAKER) (test pfpl=277) 14 mg/dL 7-21 CREATININE (BEAKER) (test jecb=624) 0.69 mg/dL 0.57-1.25 GLUCOSE RANDOM (BEAKER) (test omqc=179) 138 mg/dL 70-105 CALCIUM (BEAKER) (test tzla=715) 9.5 mg/dL 8.4-10.2 EGFR (BIENVENIDO) (test rdjz=8600) 86 mL/min/1.73 sq m ESTIMATED GFR IS NOT ACCURATE CREATININE CLEARANCE IN PREDICTING GLOMERULAR FILTRATION RATE. ESTIMATED GFR IS NOT APPLICABLE FOR DIALYSIS PATIENTS. U/S, ABDOMINAL, [id number] 13:36:00Reason for exam:->r/o alcoholic liver diseaseFINAL REPORT History: Alcohol use, evaluate for evidence for alcoholic liver disease. FINDINGS: No comparisons are available. Real-time sonographic examination of the abdomen reveals a normal-size liver measuring up to 15.3 cm in length. Hepatic echotexture appears normal. There are no sonographically detectable masses or focal intrahepatic abnormalities identified. The gallbladder is normal size measuring up to 3.3 cm in greatest transverse diameter. A trace amount of gallbladder sludge is present in its lumen. There are no visible stones. No wall thickening or pericholecystic fluid to suggest acute cholecystitis. No intra or extra hepatic biliary ductal dilatation is present. The common bile duct measures up to 4 mm in diameter. The portal vein measures 12 mm in diameter and appears patent by Limited Doppler examination. The spleen is normal size and echogenicity measuring up to 8.5 cm in length. There are no focal splenic abnormalities. The right and left kidneys are normal size and echogenicity measuring up to 11.1 and 10.5 cm in length, respectively. No visible solid masses, cysts, stones or evidence for obstruction. The pancreas is unremarkable where visible. Aorta and IVC are unremarkable. A trace amount of ascites is seen around the spleen. A small to moderate right pleural effusion is present. IMPRESSION: 1. Normal-appearing liver without sonographic evidence for cirrhosis. 2. Trace gallbladder sludge without ultrasound evidence for acute cholecystitis or other acute biliary abnormalities. 3. Trace ascites. 4. Right pleural effusion. Signed: Toshia Mccallumeport Verified Date/Time: 06/26/2018 13:36:50 Reading Location: [facility] Ultrasound Reading Room , ABDOMEN/KUB, 1 VIEW [id number] 13:22:00Reason for exam:->post corpak placement Should this be performed at the bedside?->Yes FINAL REPORT Nasogastric tube x-ray localization Clinical Diagnosis: Corpak placementComparison: No comparisonViews: One Report:Abdomen:T here is a nonspecific bowel gas pattern. There is no evidence of GI tract obst ruction. A Corpak is seen with it' s distal tip in the distal stomach. . S igned: Ana Maria Armas MDReport Verified Date/Time: 06/26/2018 13:22:59 Reading Loc ation: [facility] B1 C013W Consult Reading Room D [id number] 10:40:00* Test Item Value Reference Range Comments CULTURE (BEAKER) (test ipmv=6610) From Aerobic Bottle Only Same organism has been isolated from cultures(s) of the same body site within 3 days. Repeat identification and susceptibility testing performed only after consultation with the clinical microbiology laboratory.Refer to previous culture ofMethicillin resistant Staphylococcus aureus GRAM STAIN RESULT (BEAKER) (test ajst=7220) From aerobic and anaerobic bottles: gram positive cocci in clusters VANCOMYCIN LEVEL, [id number] 07:22:00* Test Item Value Reference Range Comments VANCOMYCIN TROUGH (BEAKER) (test pddb=866) 33.3 ug/mL 10.0-20.0 BASIC METABOLIC [id number] 07:20:00* Test Item Value Reference Range Comments SODIUM (BEAKER) (test jxkw=889) 148 meq/L 136-145 POTASSIUM (BEAKER) (test kbga=126) 4.4 meq/L 3.5-5.1 CHLORIDE (BEAKER) (test eqwo=935) 125 meq/L 98-107 CO2 (BEAKER) (test ukce=417) 14 meq/L 22-29 BLOOD UREA NITROGEN (BEAKER) (test reem=520) 14 mg/dL 7-21 CREATININE (BEAKER) (test ssym=904) 0.72 mg/dL 0.57-1.25 GLUCOSE RANDOM (BEAKER) (test rrah=636) 124 mg/dL 70-105 CALCIUM (BEAKER) (test mija=530) 10.0 mg/dL 8.4-10.2 EGFR (BEAKER) (test dfrz=6203) 82 mL/min/1.73 sq m ESTIMATED GFR IS NOT ACCURATE CREATININE CLEARANCE IN PREDICTING GLOMERULAR FILTRATION RATE. ESTIMATED GFR IS NOT APPLICABLE FOR DIALYSIS PATIENTS. POCT-GLUCOSE [id number] 06:51:00* Test Item Value Reference Range Comments POC-GLUCOSE METER (BEAKER) (test zsln=7091) 158 mg/dL 70-110 TESTED AT [facility] [address] [address] HEPATITIS PANEL, [id number] 03:12:00* Test Item Value Reference Range Comments HEPATITIS A IGM ANTIBODY (BEAKER) (test qxsp=509) Nonreactive Nonreactive HEPATITIS B CORE IGM ANTIBODY (BEAKER) (test wmyf=958) Nonreactive Nonreactive HEPATITIS C ANTIBODY (BEAKER) (test audg=192) Nonreactive Nonreactive HEPATITIS B SURFACE ANTIGEN (2) (BEAKER) (test mnml=8846) Nonreactive Nonreactive BASIC METABOLIC [id number] 01:46:00* Test Item Value Reference Range Comments SODIUM (BEAKER) (test ahme=328) 148 meq/L 136-145 POTASSIUM (BEAKER) (test oftb=264) 4.1 meq/L 3.5-5.1 Specimen slightly hemolyzed CHLORIDE (BEAKER) (test jrbc=338) 124 meq/L 98-107 CO2 (BEAKER) (test ncxz=062) 16 meq/L 22-29 BLOOD UREA NITROGEN (BEAKER) (test mmzh=914) 14 mg/dL 7-21 CREATININE (BEAKER) (test buzc=754) 0.68 mg/dL 0.57-1.25 Specimen slightly hemolyzed GLUCOSE RANDOM (BEAKER) (test mizg=171) 86 mg/dL 70-105 CALCIUM (BEAKER) (test gmcf=068) 10.2 mg/dL 8.4-10.2 EGFR (BEAKER) (test mipw=2436) 88 mL/min/1.73 sq m ESTIMATED GFR IS NOT ACCURATE CREATININE CLEARANCE IN PREDICTING GLOMERULAR FILTRATION RATE. ESTIMATED GFR IS NOT APPLICABLE FOR DIALYSIS PATIENTS. CBC W/PLT COUNT & AUTO [id number] 01:24:00* Test Item Value Reference Range Comments WHITE BLOOD CELL COUNT (BEAKER) (test seqh=475) 16.0 K/ L 3.5-10.5 RED BLOOD CELL COUNT (BEAKER) (test rfgc=117) 3.19 M/ L 3.93-5.22 HEMOGLOBIN (BEAKER) (test fosa=504) 8.7 GM/DL 11.2-15.7 HEMATOCRIT (BEAKER) (test feyl=651) 26.9 % 34.1-44.9 MEAN CORPUSCULAR VOLUME (BEAKER) (test bhqy=183) 84.3 fL 79.4-94.8 MEAN CORPUSCULAR HEMOGLOBIN (BEAKER) (test jkzb=724) 27.3 pg 25.6-32.2 MEAN CORPUSCULAR HEMOGLOBIN CONC (BEAKER) (test opjx=679) 32.3 GM/DL 32.2-35.5 RED CELL DISTRIBUTION WIDTH (BEAKER) (test bdgf=535) 19.2 % 11.7-14.4 PLATELET COUNT (BEAKER) (test nldh=972) 217 K/CU MM 150-450 MEAN PLATELET VOLUME (BEAKER) (test snrc=786) 12.4 fL 9.4-12.3 NUCLEATED RED BLOOD CELLS (BEAKER) (test frzq=882) 0 /100 WBC 0-0 NEUTROPHILS RELATIVE PERCENT (BEAKER) (test bbqq=044) 87 % LYMPHOCYTES RELATIVE PERCENT (BEAKER) (test szal=751) 9 % MONOCYTES RELATIVE PERCENT (BEAKER) (test ybmi=413) 3 % EOSINOPHILS RELATIVE PERCENT (BEAKER) (test vtwm=641) 0 % BASOPHILS RELATIVE PERCENT (BEAKER) (test cvyw=657) 0 % NEUTROPHILS ABSOLUTE COUNT (BEAKER) (test auer=566) 13.93 K/ L 1.56-6.13 LYMPHOCYTES ABSOLUTE COUNT (BEAKER) (test xxqg=458) 1.42 K/ L 1.18-3.74 MONOCYTES ABSOLUTE COUNT (BEAKER) (test pyto=934) 0.52 K/ L 0.24-0.36 EOSINOPHILS ABSOLUTE COUNT (BEAKER) (test cyfi=256) 0.06 K/ L 0.04-0.36 BASOPHILS ABSOLUTE COUNT (BEAKER) (test iouq=612) 0.01 K/ L 0.01-0.08 IMMATURE GRANULOCYTES-RELATIVE PERCENT (BEAKER) (test uhey=5235) 0 % 0-1 POCT-GLUCOSE [id number] 00:49:00* Test Item Value Reference Range Comments POC-GLUCOSE METER (BEAKER) (test giez=6665) 109 mg/dL 70-110 TESTED AT [facility] [address] [address] BASIC METABOLIC [id number] 19:09:00* Test Item Value Reference Range Comments SODIUM (BEAKER) (test tfwr=006) 147 meq/L 136-145 POTASSIUM (BEAKER) (test wntn=575) 3.6 meq/L 3.5-5.1 CHLORIDE (BEAKER) (test mpbi=014) 124 meq/L 98-107 CO2 (BEAKER) (test caxv=987) 16 meq/L 22-29 BLOOD UREA NITROGEN (BEAKER) (test hjkr=392) 16 mg/dL 7-21 CREATININE (BEAKER) (test zuoz=391) 0.74 mg/dL 0.57-1.25 GLUCOSE RANDOM (BEAKER) (test fnrn=445) 93 mg/dL 70-105 CALCIUM (BEAKER) (test prcj=115) 9.8 mg/dL 8.4-10.2 EGFR (BEAKER) (test crcd=9647) 80 mL/min/1.73 sq m ESTIMATED GFR IS NOT ACCURATE CREATININE CLEARANCE IN PREDICTING GLOMERULAR FILTRATION RATE. ESTIMATED GFR IS NOT APPLICABLE FOR DIALYSIS PATIENTS. POCT-GLUCOSE [id number] 18:37:00* Test Item Value Reference Range Comments POC-GLUCOSE METER (BEAKER) (test micn=9755) 119 mg/dL 70-110 TESTED AT [address] [address] VITAMIN B12 AND [id number] 14:56:00* Test Item Value Reference Range Comments VITAMIN B12 (BEAKER) (test afnf=470) 1679 pg/mL 213-816 FOLATE (BEAKER) (test etse=788) 6.3 ng/mL >=7.0 [id number] 14:21:00* Test Item Value Reference Range Comments PROCALCITONIN (BEAKER) (test azro=3984) 0.19 ng/mL <0.05 SEPSIS RISK (ng/mL)Low: 0.05-0.50Intermediate: 0.51-2.00High: > =2.01BODY FLUID CULTURE + GRAM [id number] 13:40:00* Test Item Value Reference Range Comments CULTURE (BEAKER) (test yrea=2363) METHICILLIN RESISTANT STAPHYLOCOCCUS AUREUS 4+ Methicillin resistant Staphylococcus aureus Clindamycin (test code=10) Erythromycin (test code=4) Linezolid (test code=40) Oxacillin (test code=14) Rifampin (test code=43) Tetracycline (test code=2) Trimethoprim + Sulfamethoxazole (test code=47) Vancomycin (test code=13) GRAM STAIN RESULT (BEAKER) (test dqhl=4448) 3+ WBCs GRAM STAIN RESULT (BEAKER) (test bgme=884666) 2+ gram positive cocci in pairs [id number] 13:36:00* Test Item Value Reference Range Comments HAPTOGLOBIN (BEAKER) (test qsfr=306) 260 mg/dL 14-258 BASIC METABOLIC [id number] 13:36:00* Test Item Value Reference Range Comments SODIUM (BEAKER) (test dbiz=701) 145 meq/L 136-145 POTASSIUM (BEAKER) (test jjtn=999) 3.7 meq/L 3.5-5.1 CHLORIDE (BEAKER) (test mfwp=460) 123 meq/L 98-107 CO2 (BEAKER) (test xvip=666) 16 meq/L 22-29 BLOOD UREA NITROGEN (BEAKER) (test ctzd=018) 16 mg/dL 7-21 CREATININE (BEAKER) (test agos=588) 0.74 mg/dL 0.57-1.25 GLUCOSE RANDOM (BEAKER) (test vayn=246) 117 mg/dL 70-105 CALCIUM (BEAKER) (test qjhp=819) 9.5 mg/dL 8.4-10.2 EGFR (BEAKER) (test hrlt=7586) 80 mL/min/1.73 sq m ESTIMATED GFR IS NOT ACCURATE CREATININE CLEARANCE IN PREDICTING GLOMERULAR FILTRATION RATE. ESTIMATED GFR IS NOT APPLICABLE FOR DIALYSIS PATIENTS. LACTATE DEHYDROGENASE (LDH)2018-06-25 13:35:00* Test Item Value Reference Range Comments LACTATE DEHYDROGENASE (BEAKER) (test veix=948) 341 U/L 125-220 [id number] 13:34:00* Test Item Value Reference Range Comments D-DIMER QUANTITATIVE (BEAKER) (test cscy=057) 2.03 MG/L FEU <0.50 Intended Use: The D-Dimer Assay can be used to aid in the diagnosis of Deep Vein Thrombosis (DVT) and Pulmonary Embolism Disease (PED).In patients with low pre- test probability, various studies concerning STA Liatest D-dimer test have repor joey that with a cutoff value of 0.50 MG/L FEU, the Negative Predictive Value (RECEIVER V) regarding the exclusion of thrombosis is within 95-100% range.FIBRINOGEN 2018-06-25 13:32:00* Test Item Value Reference Range Comments FIBRINOGEN LEVEL (BEAKER) (test cwiq=625) 496 mg/dl 225-434 PT/[id number] 13:32:00* Test Item Value Reference Range Comments PROTIME (BEAKER) (test ovqj=903) 14.3 seconds 11.7-14.7 INR (BEAKER) (test vjvj=708) 1.1 <=5.9 PARTIAL THROMBOPLASTIN TIME (BEAKER) (test vjoz=413) 37.3 seconds 22.5-36.0 RECOMMENDED COUMADIN/WARFARIN INR THERAPY RANGESSTANDARD DOSE: 2.0 - 3.0 Inclu earl: PROPHYLAXIS for venous thrombosis, systemic embolization; TREATMENT for zahra ous thrombosis and/or pulmonary embolus.HIGH RISK: Target INR is 2.5-3.5 for pat ients with mechanical heart valves.RETICULOCYTE [id number] 13:16:00* Test Item Value Reference Range Comments RETICULOCYTE COUNT PCT (BEAKER) (test ewuz=739) 1.0 % 0.5-1.7 HEMOGLOBIN AND [id number] 13:16:00* Test Item Value Reference Range Comments HEMOGLOBIN (BEAKER) (test wqsj=114) 8.4 GM/DL 11.2-15.7 HEMATOCRIT (BEAKER) (test yvdi=396) 25.0 % 34.1-44.9 SPIN/CONCENTRATION [id number] 13:13:00* Test Item Value Reference Range Comments CONCENTRATION CHARGED (BEAKER) (test tnny=8041) Done POCT-GLUCOSE [id number] 13:12:00* Test Item Value Reference Range Comments POC-GLUCOSE METER (BEAKER) (test hvzu=5246) 154 mg/dL 70-110 TESTED AT [facility] [address] [address] BLOOD [id number] 11:04:00* Test Item Value Reference Range Comments CULTURE (BEAKER) (test axdn=6267) From Aerobic And Anaerobic Bottles Same organism has been isolated from culture(s) of the same body site and collection date. Repeat identification performed only after consultation with the clinical microbiology laboratory.Refer to previous culture ofStaphylococcus aureus GRAM STAIN RESULT (BEAKER) (test omae=4639) From aerobic and anaerobic bottles: gram positive cocci in clusters BLOOD CULTURE IDENTIFICATION [id number] 10:47:00* Test Item Value Reference Range Comments LISTERIA MONOCYTOGENES (test vucq=7582910) Not detected Not detected STAPHYLOCOCCUS (test smaz=2718088) Detected Not detected STAPHYLOCOCCUS AUREUS (test ssdu=8241390) Detected Not detected First line therapy: VancomycinID consultation strongly encouraged. Staphylococcus aureus DETECTED MecA DETECTEDReference Range: Not Detected STREPTOCOCCUS (test pyqu=4192144) Not detected Not detected STREPTOCOCCUS AGALACTIAE (GROUP B) (test fcyu=9020959) Not detected Not detected STREPTOCOCCUS PNEUMONIAE (test ccce=2546422) Not detected Not detected STREPTOCOCCUS PYOGENES (GROUP A) (test gceq=7270288) Not detected Not detected ACINETOBACTER BAUMANNII (test cjyx=4641106) Not detected Not detected HAEMOPHILUS INFLUENZAE (test erfs=7808515) Not detected Not detected NEISSERIA MENINGITIDIS (test sxnx=4932673) Not detected Not detected ENTEROBACTERIACEAE (test bige=9291847) Not detected Not detected ENTEROBACTER CLOACOE COMPLEX (test uuvp=4580082) Not detected Not detected KLEBSIELLA OXYTOCA (test fuze=2042576) Not detected Not detected KLEBSIELLA PNEUMONIAE (test qxqx=4057) Not detected Not detected PROTEUS (test stlt=6570275) Not detected Not detected SERRATIA MARCESCENS (test sivp=3424910) Not detected Not detected ABBY ALBICANS (test oowu=3375158) Not detected Not detected ABBY GLABRATA (test ifbs=8037481) Not detected Not detected ABBY KRUSEI (test qrko=1981153) Not detected Not detected ABBY PARAPSILOSIS (test txqw=4546703) Not detected Not detected ABBY TROPICALIS (test uslu=2767733) Not detected Not detected ESCHERICHIA COLI (test ftdw=1162947) Not detected Not detected METHICILLIN-RESISTANCE GENE (test hexr=5260395) Detected Not detected VANCOMYCIN-RESISTANCE GENE (test inzg=2522602) Not detected CARBAPENEM-RESISTANCE GENE (test envd=7084018) Not detected ENTEROCOCCUS-BEAKER (test tjvb=7167556) Not detected Not detected PSEUDOMONAS AERUGINOSA-BEAKER (test soxv=9479225) Not detected Not detected Other bacteria and resistance markers not targeted by this PCR panel cannot be e xcluded; therefore clinical correlation and follow up of serology, culture resul ts, and other molecular studies is required. The results are not intended to be used as the sole means for clinical diagnosis or patient management decisions. T his sample was tested at the [facility] using the [employer] Blood Culture ID Panel. It is FDA cleared and has been verified and approved by the [facility] for clinical use. Thi s laboratory is CLIA-certified and [employer] (CAP)-accred ited to perform high complexity testing.BLOOD [id number] 10:45:00* Test Item Value Reference Range Comments CULTURE (BEAKER) (test sdun=9157) METHICILLIN RESISTANT STAPHYLOCOCCUS AUREUS From Aerobic And Anaerobic Bottles Methicillin resistant Staphylococcus aureus Clindamycin (test code=10) Erythromycin (test code=4) Linezolid (test code=40) Nitrofurantoin (test code=23) Oxacillin (test code=14) Rifampin (test code=43) Tetracycline (test code=2) Trimethoprim + Sulfamethoxazole (test code=47) Vancomycin (test code=13) GRAM STAIN RESULT (BEAKER) (test yyro=6906) From aerobic and anaerobic bottles: gram positive cocci in clusters HEMOGLOBIN [id number] 09:00:00* Test Item Value Reference Range Comments HEMOGLOBIN A1C (BEAKER) (test ljmx=255) 7.0 % 4.3-6.1 POCT-GLUCOSE [id number] 07:02:00* Test Item Value Reference Range Comments POC-GLUCOSE METER (BEAKER) (test efag=9173) 156 mg/dL 70-110 TESTED AT [facility] [address] [address] BLOOD GAS, [id number] 05:56:00* Test Item Value Reference Range Comments PH ARTERIAL (BEAKER) (test uehe=090) 7.44 7.35-7.45 PCO2 ARTERIAL (BEAKER) (test fnqe=590) 23 mmHg 35-45 PO2 ARTERIAL (BEAKER) (test qxip=262) 134 mmHg 80-90 O2 SATURATION ARTERIAL (BEAKER) (test myre=407) 98.8 % 96.0-97.0 HCO3 ARTERIAL (BEAKER) (test edoi=326) 16 mmol/L 21-29 BASE EXCESS ARTERIAL (BEAKER) (test btmu=517) -7.8 mmol/L -2.0-3.0 PATIENT TEMPERATURE (BEAKER) (test gqmq=4546) 37.0 C FIO2 (BEAKER) (test vitx=3117) 50.0 % BASIC METABOLIC [id number] 05:26:00* Test Item Value Reference Range Comments SODIUM (BEAKER) (test geep=496) 146 meq/L 136-145 POTASSIUM (BEAKER) (test sfiz=544) 4.1 meq/L 3.5-5.1 CHLORIDE (BEAKER) (test kldu=358) 124 meq/L 98-107 CO2 (BEAKER) (test rxte=713) 16 meq/L 22-29 BLOOD UREA NITROGEN (BEAKER) (test xjta=666) 17 mg/dL 7-21 CREATININE (BEAKER) (test nhoi=736) 0.75 mg/dL 0.57-1.25 GLUCOSE RANDOM (BEAKER) (test krmn=569) 115 mg/dL 70-105 CALCIUM (BEAKER) (test crrm=582) 9.2 mg/dL 8.4-10.2 EGFR (BEAKER) (test ktlk=5975) 79 mL/min/1.73 sq m ESTIMATED GFR IS NOT ACCURATE CREATININE CLEARANCE IN PREDICTING GLOMERULAR FILTRATION RATE. ESTIMATED GFR IS NOT APPLICABLE FOR DIALYSIS PATIENTS. CBC W/PLT COUNT & AUTO [id number] 05:14:00* Test Item Value Reference Range Comments WHITE BLOOD CELL COUNT (BEAKER) (test edyu=156) 16.6 K/ L 3.5-10.5 RED BLOOD CELL COUNT (BEAKER) (test hzgm=309) 2.30 M/ L 3.93-5.22 HEMOGLOBIN (BEAKER) (test uhgk=576) 6.1 GM/DL 11.2-15.7 HEMATOCRIT (BEAKER) (test jxyb=111) 18.9 % 34.1-44.9 MEAN CORPUSCULAR VOLUME (BEAKER) (test wqnk=229) 82.2 fL 79.4-94.8 MEAN CORPUSCULAR HEMOGLOBIN (BEAKER) (test gaep=337) 26.5 pg 25.6-32.2 MEAN CORPUSCULAR HEMOGLOBIN CONC (BEAKER) (test bjbc=204) 32.3 GM/DL 32.2-35.5 RED CELL DISTRIBUTION WIDTH (BEAKER) (test xcqf=710) 19.9 % 11.7-14.4 PLATELET COUNT (BEAKER) (test cpxp=276) 219 K/CU MM 150-450 MEAN PLATELET VOLUME (BEAKER) (test oavv=897) 11.3 fL 9.4-12.3 NUCLEATED RED BLOOD CELLS (BEAKER) (test lxog=915) 0 /100 WBC 0-0 NEUTROPHILS RELATIVE PERCENT (BEAKER) (test xmit=879) 89 % LYMPHOCYTES RELATIVE PERCENT (BEAKER) (test ypqe=682) 5 % MONOCYTES RELATIVE PERCENT (BEAKER) (test akuc=386) 2 % EOSINOPHILS RELATIVE PERCENT (BEAKER) (test cuoo=000) 0 % BASOPHILS RELATIVE PERCENT (BEAKER) (test xncd=222) 0 % NEUTROPHILS ABSOLUTE COUNT (BEAKER) (test spyj=685) 14.89 K/ L 1.56-6.13 LYMPHOCYTES ABSOLUTE COUNT (BEAKER) (test jwbb=896) 0.78 K/ L 1.18-3.74 MONOCYTES ABSOLUTE COUNT (BEAKER) (test dthg=887) 0.38 K/ L 0.24-0.36 EOSINOPHILS ABSOLUTE COUNT (BEAKER) (test iipt=019) 0.01 K/ L 0.04-0.36 BASOPHILS ABSOLUTE COUNT (BEAKER) (test dxgz=706) 0.01 K/ L 0.01-0.08 IMMATURE GRANULOCYTES-RELATIVE PERCENT (BEAKER) (test lhoq=9165) 3 % 0-1 RAD, CHEST, 1 VIEW, NON [id number] 05:04:00Reason for exam:->pt intubated follow upShould this be performed at the bedside?->YesFINAL REPORT RAD, CHEST, 1 VIEW, NON DEPT INDICATION: pt intubated follow up COMPARISON: Prior day's exam FINDINGS: Portable frontal view of the chest. IMPRESSION: Support Lines: Interval intubation with the endotracheal tube terminating 4.1 cm above the rashi. Otherwise unchanged support apparatus. Lungs and pleura: Unchanged airspace and pleural opacities. No pneumotho rax.Heart and mediastinum: Stable contours. Additional findings: None. Signed: Bia Garcia Verified Date/Time: 06/25/2018 05:04:31 Reading Loc ation: [facility] B1 C013T Transitional Reading Room -GLUCOSE [id number] 01:11:00* Test Item Value Reference Range Comments POC-GLUCOSE METER (BEAKER) (test dmcy=1037) 197 mg/dL 70-110 TESTED AT [facility] [address] [address] [id number] 00:04:00* Test Item Value Reference Range Comments MAGNESIUM (BEAKER) (test bwvf=892) 1.4 mg/dL 1.6-2.6 [id number] 00:04:00* Test Item Value Reference Range Comments PHOSPHORUS (BEAKER) (test uliz=444) 3.0 mg/dL 2.3-4.7 BASIC METABOLIC [id number] 23:43:00* Test Item Value Reference Range Comments SODIUM (BEAKER) (test abmg=599) 148 meq/L 136-145 POTASSIUM (BEAKER) (test sfvy=405) 3.7 meq/L 3.5-5.1 CHLORIDE (BEAKER) (test auki=135) 126 meq/L 98-107 CO2 (BEAKER) (test tbic=892) 16 meq/L 22-29 BLOOD UREA NITROGEN (BEAKER) (test njcr=526) 17 mg/dL 7-21 CREATININE (BEAKER) (test clzy=341) 0.76 mg/dL 0.57-1.25 GLUCOSE RANDOM (BEAKER) (test xhte=455) 133 mg/dL 70-105 CALCIUM (BEAKER) (test rmhy=119) 8.7 mg/dL 8.4-10.2 EGFR (BEAKER) (test ehng=9623) 77 mL/min/1.73 sq m ESTIMATED GFR IS NOT ACCURATE CREATININE CLEARANCE IN PREDICTING GLOMERULAR FILTRATION RATE. ESTIMATED GFR IS NOT APPLICABLE FOR DIALYSIS PATIENTS. CBC W/PLT COUNT & AUTO [id number] 17:37:00* Test Item Value Reference Range Comments WHITE BLOOD CELL COUNT (BEAKER) (test lsmq=393) 25.3 K/ L 3.5-10.5 RED BLOOD CELL COUNT (BEAKER) (test yzeo=562) 2.71 M/ L 3.93-5.22 HEMOGLOBIN (BEAKER) (test dguo=107) 7.2 GM/DL 11.2-15.7 HEMATOCRIT (BEAKER) (test ubao=561) 22.6 % 34.1-44.9 MEAN CORPUSCULAR VOLUME (BEAKER) (test tfpf=954) 83.4 fL 79.4-94.8 MEAN CORPUSCULAR HEMOGLOBIN (BEAKER) (test gims=182) 26.6 pg 25.6-32.2 MEAN CORPUSCULAR HEMOGLOBIN CONC (BEAKER) (test ueku=326) 31.9 GM/DL 32.2-35.5 RED CELL DISTRIBUTION WIDTH (BEAKER) (test bacu=406) 20.4 % 11.7-14.4 PLATELET COUNT (BEAKER) (test hngb=911) 280 K/CU MM 150-450 MEAN PLATELET VOLUME (BEAKER) (test cuwi=931) 11.8 fL 9.4-12.3 NUCLEATED RED BLOOD CELLS (BEAKER) (test slft=834) 0 /100 WBC 0-0 (CELLAVISION MANUAL DIFF)2018-06-24 17:37:00* Test Item Value Reference Range Comments NEUTROPHILS - REL (CELLAVISION)(BEAKER) (test umrg=3875) 92 % METAMYELOCYTES - REL (CELLAVISION)(BEAKER) (test ktky=5945) 2 % 0-0 BANDS - REL (CELLAVISION)(BEAKER) (test sgth=0688) 6 % 0-10 NEUTROPHILS - ABS (CELLAVISION)(BEAKER) (test qres=6249) 23.28 K/ul 1.56-6.13 METAMYELOCYTES - ABS (CELLAVISION)(BEAKER) (test hofa=6141) 0.51 K/uL 0.00-0.00 BANDS - ABS (CELLAVISION)(BEAKER) (test daub=5893) 1.52 K/uL 0.00-0.80 TOTAL COUNTED (BEAKER) (test qrpf=0222) 100 SMUDGE CELLS (BEAKER) (test ffns=8229) Present GIANT PLATELETS (BEAKER) (test mrtr=955) Present ANISOCYTOSIS (BEAKER) (test gqbz=282) 1+ few MACROCYTES (BEAKER) (test qvxs=227) 1+ few POIKILOCYTES (BEAKER) (test vqgn=382) 3+ many SPHEROCYTES (BEAKER) (test gfyv=129) 1+ few TEAR DROP CELLS (BEAKER) (test zast=696) 1+ few FARRAH CELLS (BEAKER) (test kzdr=211) 2+ moderate HELMET CELLS (CELLAVISION)(BEAKER) (test efkp=9112) 1+ few PLATELET CONCENTRATION (CELLAVISION)(BEAKER) (test eslz=3860) Adequate Received comment: User comments: Slide comments: [id number] 17:03:00* Test Item Value Reference Range Comments FERRITIN (BEAKER) (test qwfk=464) 558 ng/mL 5-275 BASIC METABOLIC [id number] 16:46:00* Test Item Value Reference Range Comments SODIUM (BEAKER) (test cjfb=916) 143 meq/L 136-145 POTASSIUM (BEAKER) (test vyot=005) 4.5 meq/L 3.5-5.1 CHLORIDE (BEAKER) (test fmcv=911) 126 meq/L 98-107 CO2 (BEAKER) (test aamb=634) 11 meq/L 22-29 BLOOD UREA NITROGEN (BEAKER) (test komv=291) 16 mg/dL 7-21 CREATININE (BEAKER) (test anht=337) 0.73 mg/dL 0.57-1.25 GLUCOSE RANDOM (BEAKER) (test gbgr=068) 175 mg/dL 70-105 CALCIUM (BEAKER) (test wyzh=327) 8.9 mg/dL 8.4-10.2 EGFR (BEAKER) (test zxab=6390) 81 mL/min/1.73 sq m ESTIMATED GFR IS NOT ACCURATE CREATININE CLEARANCE IN PREDICTING GLOMERULAR FILTRATION RATE. ESTIMATED GFR IS NOT APPLICABLE FOR DIALYSIS PATIENTS. IRON, TIBC, % SAT. (WITHOUT FERRITIN)2018-06-24 16:46:00* Test Item Value Reference Range Comments IRON (BEAKER) (test ubba=672) 7.0 ug/dL 40.0-160.0 TOTAL IRON BINDING CAPACITY (BEAKER) (test ztaf=915) 135 ug/dL 250-450 IRON % SATURATION (2) (BEAKER) (test trya=6719) 5 % 20-55 [id number] 16:44:00* Test Item Value Reference Range Comments PHOSPHORUS (BEAKER) (test pyub=105) 3.6 mg/dL 2.3-4.7 [id number] 16:44:00* Test Item Value Reference Range Comments MAGNESIUM (BEAKER) (test ipwq=992) 1.9 mg/dL 1.6-2.6 BLOOD GAS, [id number] 16:16:00* Test Item Value Reference Range Comments PH ARTERIAL (BEAKER) (test ukqq=220) 7.29 7.35-7.45 PCO2 ARTERIAL (BEAKER) (test aqkz=669) 25 mmHg 35-45 PO2 ARTERIAL (BEAKER) (test iteb=895) 198 mmHg 80-90 O2 SATURATION ARTERIAL (BEAKER) (test gjlh=121) 99.3 % 96.0-97.0 HCO3 ARTERIAL (BEAKER) (test tded=320) 12 mmol/L 21-29 BASE EXCESS ARTERIAL (BEAKER) (test gbcq=160) -13.8 mmol/L -2.0-3.0 PATIENT TEMPERATURE (BEAKER) (test ygbq=6513) 36.8 C FIO2 (BEAKER) (test rhil=9528) 50.0 % POCT-GLUCOSE [id number] 16:15:00* Test Item Value Reference Range Comments POC-GLUCOSE METER (BEAKER) (test iaey=0939) 198 mg/dL 70-110 TESTED AT [place] [id number] POCT-GLUCOSE [id number] 15:40:00* Test Item Value Reference Range Comments POC-GLUCOSE METER (BEAKER) (test dkce=6839) 375 mg/dL 70-110 Notified SINAN MOHR/TESTED AT [place] [id number] BASIC METABOLIC [id number] 13:36:00* Test Item Value Reference Range Comments SODIUM (BEAKER) (test ghyc=046) 143 meq/L 136-145 POTASSIUM (BEAKER) (test yvzi=796) 4.0 meq/L 3.5-5.1 CHLORIDE (BEAKER) (test eohz=521) 124 meq/L 98-107 CO2 (BEAKER) (test hfjr=094) 13 meq/L 22-29 BLOOD UREA NITROGEN (BEAKER) (test nqyl=880) 16 mg/dL 7-21 CREATININE (BEAKER) (test hxnh=029) 0.72 mg/dL 0.57-1.25 GLUCOSE RANDOM (BEAKER) (test glsu=006) 103 mg/dL 70-105 CALCIUM (BEAKER) (test whgq=886) 8.4 mg/dL 8.4-10.2 EGFR (BEAKER) (test rzbd=4958) 82 mL/min/1.73 sq m ESTIMATED GFR IS NOT ACCURATE CREATININE CLEARANCE IN PREDICTING GLOMERULAR FILTRATION RATE. ESTIMATED GFR IS NOT APPLICABLE FOR DIALYSIS PATIENTS. [id number] 13:01:00* Test Item Value Reference Range Comments PHOSPHORUS (BEAKER) (test dneo=489) 2.2 mg/dL 2.3-4.7 [id number] 13:01:00* Test Item Value Reference Range Comments MAGNESIUM (BEAKER) (test kyto=024) 2.1 mg/dL 1.6-2.6 POCT-GLUCOSE [id number] 12:22:00* Test Item Value Reference Range Comments POC-GLUCOSE METER (BEAKER) (test xksf=0028) 215 mg/dL 70-110 TESTED AT [address] [address] B-TYPE NATRIURETIC FACTOR (BNP)2018-06-24 12:12:00* Test Item Value Reference Range Comments B-TYPE NATRIURETIC PEPTIDE (BEAKER) (test pjlr=424) 695 pg/mL 0-100 HEMOGLOBIN AND [id number] 11:49:00* Test Item Value Reference Range Comments HEMOGLOBIN (BEAKER) (test hcac=114) 6.5 GM/DL 11.2-15.7 HEMATOCRIT (BEAKER) (test ufjc=794) 20.2 % 34.1-44.9 RAD, CHEST, 1 VIEW, NON [id number] 11:20:00Reason for exam:->wheezingShould this be performed at the bedside?->YesFINAL REPORT TECHNIQUE: Frontal view of the chest. INDICATION: 63-year-old woman with wheezing. COMPARISON: Chest radiograph 06/23/2018. FINDINGS: LINES/TUBES: Unchanged left internal jugular central venous catheter. LUNGS: Left greater than right bilateral interstitial opacities, increased since 06/23/2018. PLEURA: No pneumothorax or significant pleural effusion. HEART AND MEDIASTINUM: The cardiomediastinal silhouette is unchanged. SOFT TISSUES AND BONES: Unremarkable. IMPRESSION:Increased bilateral interstitial opacities. Signed: Diamond Connelly MDReport Verified Date/Time: 06/24/2018 11:20:00 Reading Location: [facility] Radiology Reading Room OMYCIN LEVEL, [id number] 10:36:00* Test Item Value Reference Range Comments VANCOMYCIN TROUGH (BEAKER) (test uveu=802) 20.9 ug/mL 10.0-20.0 POCT-GLUCOSE [id number] 06:44:00* Test Item Value Reference Range Comments POC-GLUCOSE METER (BEAKER) (test fagn=2223) 178 mg/dL 70-110 TESTED AT [facility] [address] [place] [address] HEMOGLOBIN AND [id number] 06:22:00* Test Item Value Reference Range Comments HEMOGLOBIN (BEAKER) (test nebo=041) 6.8 GM/DL 11.2-15.7 HEMATOCRIT (BEAKER) (test ndpb=499) 21.7 % 34.1-44.9 BASIC METABOLIC [id number] 05:56:00* Test Item Value Reference Range Comments SODIUM (BEAKER) (test amkz=718) 142 meq/L 136-145 POTASSIUM (BEAKER) (test vpbc=644) 4.4 meq/L 3.5-5.1 CHLORIDE (BEAKER) (test oyjt=153) 125 meq/L 98-107 CO2 (BEAKER) (test xwzc=925) 13 meq/L 22-29 BLOOD UREA NITROGEN (BEAKER) (test uowl=385) 18 mg/dL 7-21 CREATININE (BEAKER) (test vatx=698) 0.73 mg/dL 0.57-1.25 GLUCOSE RANDOM (BEAKER) (test pbdv=698) 140 mg/dL 70-105 CALCIUM (BEAKER) (test avhu=923) 8.4 mg/dL 8.4-10.2 EGFR (BEAKER) (test tnaw=7895) 81 mL/min/1.73 sq m ESTIMATED GFR IS NOT ACCURATE CREATININE CLEARANCE IN PREDICTING GLOMERULAR FILTRATION RATE. ESTIMATED GFR IS NOT APPLICABLE FOR DIALYSIS PATIENTS. [id number] 05:54:00* Test Item Value Reference Range Comments PHOSPHORUS (BEAKER) (test iygb=163) 2.3 mg/dL 2.3-4.7 [id number] 05:54:00* Test Item Value Reference Range Comments MAGNESIUM (BEAKER) (test tghc=356) 1.9 mg/dL 1.6-2.6 CBC W/PLT COUNT & AUTO [id number] 05:15:00* Test Item Value Reference Range Comments WHITE BLOOD CELL COUNT (BEAKER) (test ljjp=462) 21.2 K/ L 3.5-10.5 RED BLOOD CELL COUNT (BEAKER) (test srrq=498) 2.50 M/ L 3.93-5.22 HEMOGLOBIN (BEAKER) (test xhkr=781) 6.5 GM/DL 11.2-15.7 HEMATOCRIT (BEAKER) (test omlh=644) 20.8 % 34.1-44.9 MEAN CORPUSCULAR VOLUME (BEAKER) (test tmgi=090) 83.2 fL 79.4-94.8 MEAN CORPUSCULAR HEMOGLOBIN (BEAKER) (test enzs=260) 26.0 pg 25.6-32.2 MEAN CORPUSCULAR HEMOGLOBIN CONC (BEAKER) (test bagv=136) 31.3 GM/DL 32.2-35.5 RED CELL DISTRIBUTION WIDTH (BEAKER) (test vqiw=054) 20.0 % 11.7-14.4 PLATELET COUNT (BEAKER) (test kbqk=465) 266 K/CU MM 150-450 MEAN PLATELET VOLUME (BEAKER) (test hcow=387) 11.3 fL 9.4-12.3 NUCLEATED RED BLOOD CELLS (BEAKER) (test nkrs=872) 0 /100 WBC 0-0 NEUTROPHILS RELATIVE PERCENT (BEAKER) (test lkjc=194) 94 % LYMPHOCYTES RELATIVE PERCENT (BEAKER) (test aguh=308) 2 % MONOCYTES RELATIVE PERCENT (BEAKER) (test ibkf=803) 2 % EOSINOPHILS RELATIVE PERCENT (BEAKER) (test ebpi=658) 0 % BASOPHILS RELATIVE PERCENT (BEAKER) (test uqzy=624) 0 % NEUTROPHILS ABSOLUTE COUNT (BEAKER) (test mrko=339) 19.96 K/ L 1.56-6.13 LYMPHOCYTES ABSOLUTE COUNT (BEAKER) (test fvrx=210) 0.50 K/ L 1.18-3.74 MONOCYTES ABSOLUTE COUNT (BEAKER) (test ioyv=048) 0.43 K/ L 0.24-0.36 EOSINOPHILS ABSOLUTE COUNT (BEAKER) (test ynxi=554) 0.00 K/ L 0.04-0.36 BASOPHILS ABSOLUTE COUNT (BEAKER) (test wivx=052) 0.02 K/ L 0.01-0.08 IMMATURE GRANULOCYTES-RELATIVE PERCENT (BEAKER) (test crsn=5967) 1 % 0-1 BASIC METABOLIC [id number] 23:49:00* Test Item Value Reference Range Comments SODIUM (BEAKER) (test bowh=082) 143 meq/L 136-145 POTASSIUM (BEAKER) (test skra=061) 4.1 meq/L 3.5-5.1 CHLORIDE (BEAKER) (test oorn=560) 128 meq/L 98-107 CO2 (BEAKER) (test exhw=384) 12 meq/L 22-29 BLOOD UREA NITROGEN (BEAKER) (test nvwz=319) 17 mg/dL 7-21 CREATININE (BEAKER) (test rraj=894) 0.67 mg/dL 0.57-1.25 GLUCOSE RANDOM (BEAKER) (test xdbc=384) 143 mg/dL 70-105 CALCIUM (BEAKER) (test kene=642) 7.2 mg/dL 8.4-10.2 EGFR (BEAKER) (test pgqv=7823) 89 mL/min/1.73 sq m ESTIMATED GFR IS NOT ACCURATE CREATININE CLEARANCE IN PREDICTING GLOMERULAR FILTRATION RATE. ESTIMATED GFR IS NOT APPLICABLE FOR DIALYSIS PATIENTS. POCT-GLUCOSE [id number] 23:47:00* Test Item Value Reference Range Comments POC-GLUCOSE METER (BEAKER) (test osob=2044) 193 mg/dL 70-110 TESTED AT [facility] [address] [address] [id number] 23:45:00* Test Item Value Reference Range Comments PHOSPHORUS (BEAKER) (test beku=233) 2.3 mg/dL 2.3-4.7 [id number] 23:45:00* Test Item Value Reference Range Comments MAGNESIUM (BEAKER) (test ugvg=460) 1.5 mg/dL 1.6-2.6 RAD, CHEST, 1 VIEW, NON [id number] 22:16:00Reason for exam:->S/P central line placementFINAL REPORT Chest one view. Clinical history: S/P central line placement Comparison: Chest radiograph 06/12/2018. Technique: A single frontal view of the chest was obtained. Findings:There is a left IJ central venous catheter with tip in the SVC.The heart is normal in size. The aorta is tortuous. There are bilateral perihilar airspace and interstitial opacities which may represent mild pulmonary edema however pneumonia cannot be excluded. There is no pleural effusion or pneumothorax. There are degenerative changes of the visualized spine. Signed: Grayson Russ MDReport Verified Date/Time: 06/23/2018 22:16:23 Reading Location: [address] Reading Room FLUID CELL COUNT WITH [id number] 21:31:00* Test Item Value Reference Range Comments APPEARANCE FLUID (BEAKER) (test pzhn=861) Bloody Clear COLOR FLUID (BEAKER) (test lcer=538) Red Colorless, Straw RBC FLUID (BEAKER) (test wyla=628) /cu mm <=1 Specimen clotted, test cannot be performed ADJUSTED WBC FLUID (BEAKER) (test vdob=6486) /cu mm <=5 Specimen clotted, accurate cell count not possible. LINING CELLS (BEAKER) (test hjgx=8427) /cu mm <=1 NEUTROPHILS FLUID (BEAKER) (test oqqd=6255) 87 % This is a corrected result. Previous result was 0 % on 06/23/2018 at [address] [employer] LYMPHS FLUID (BEAKER) (test zpxl=515) 7 % This is a corrected result. Previous result was 0 % on 06/23/2018 at [address] [employer] MONO/MACROPHAGE FLUID (BEAKER) (test thlr=138) 6 % This is a corrected result. Previous result was 0 % on 06/23/2018 at [address] [employer] EOSINOPHILS FLUID (BEAKER) (test kjsc=391) 0 % BASO FLUID (BEAKER) (test zhhh=429) 0 % CONTAINER BODY FLUID (BEAKER) (test yzlt=0769) EDTA Tube Intracellular cocci seen on stained smear.BASIC METABOLIC [id number] 18:41:00* Test Item Value Reference Range Comments SODIUM (BEAKER) (test dpex=368) 141 meq/L 136-145 POTASSIUM (BEAKER) (test vpgz=768) 5.3 meq/L 3.5-5.1 CHLORIDE (BEAKER) (test bwcw=383) 125 meq/L 98-107 CO2 (BEAKER) (test fwif=199) 10 meq/L 22-29 BLOOD UREA NITROGEN (BEAKER) (test zgcx=756) 19 mg/dL 7-21 CREATININE (BEAKER) (test cezu=620) 0.76 mg/dL 0.57-1.25 GLUCOSE RANDOM (BEAKER) (test dpeo=451) 108 mg/dL 70-105 CALCIUM (BEAKER) (test oktb=706) 8.4 mg/dL 8.4-10.2 EGFR (BEAKER) (test xzqh=7378) 77 mL/min/1.73 sq m ESTIMATED GFR IS NOT ACCURATE CREATININE CLEARANCE IN PREDICTING GLOMERULAR FILTRATION RATE. ESTIMATED GFR IS NOT APPLICABLE FOR DIALYSIS PATIENTS. [id number] 18:40:00* Test Item Value Reference Range Comments MAGNESIUM (BEAKER) (test ammg=875) 2.1 mg/dL 1.6-2.6 Specimen moderately hemolyzed [id number] 18:40:00* Test Item Value Reference Range Comments PHOSPHORUS (BEAKER) (test enkp=800) 2.3 mg/dL 2.3-4.7 Specimen moderately hemolyzed C-REACTIVE [id number] 18:37:00* Test Item Value Reference Range Comments C-REACTIVE PROTEIN (BEAKER) (test gesq=847) > mg/dL 0.00-0.50 POCT-GLUCOSE [id number] 18:05:00* Test Item Value Reference Range Comments POC-GLUCOSE METER (BEAKER) (test lqzn=9741) 94 mg/dL 70-110 TESTED AT [facility] [address] [address] [id number] 17:52:00* Test Item Value Reference Range Comments PROTIME (BEAKER) (test yeeu=240) 17.0 seconds 11.7-14.7 INR (BEAKER) (test erjt=802) 1.4 <=5.9 PARTIAL THROMBOPLASTIN TIME (BIENVENIDO) (test twrz=149) 50.8 seconds 22.5-36.0 RECOMMENDED COUMADIN/WARFARIN INR THERAPY RANGESSTANDARD DOSE: 2.0 - 3.0 Inclu earl: PROPHYLAXIS for venous thrombosis, systemic embolization; TREATMENT for zahra ous thrombosis and/or pulmonary embolus.HIGH RISK: Target INR is 2.5-3.5 for pat ients with mechanical heart valves.MR, EXTREMITY, UPPER, JOINT, [id number] 16:47:00Evaluate for right elbow septic arthritis and associated chronic osteomyelitis. Please include mid-humerus to mid-forearmFINAL REPORT MRI OF THE RIGHT ELBOW WITHOUT AND WITH INTRAVENOUS CONTRAST HISTORY: Septic arthritis, osteomyelitis COMPARISON: Right elbow radiographs of 06/22/2018 TECHNIQUE: Multiplanar multisequence MRI of the right elbow was performed without and with intravenous contrast using the septic art hritis/osteomyelitis protocol. FINDINGS: There is a large complex elbow joint e ffusion. 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 There ar e some focal erosive changes in the dorsal aspect of the distal humeral remnant. Most of these show no surrounding marrow edema but there is mild marrow edema a round the largest of these is seen on sagittal (labeled coronal) image 15 and on axial precontrast images 20 through 22 and axial postcontrast images 22-23. Whi le these erosive changes and particularly the largest erosion in the dorsal aspe ct of the distal humeral remnant could represent osteomyelitis, given the extens tori joint abnormality in the elbow, one would expect acute osteomyelitis to julius fest with significantly greater bone marrow edema and active bony destruction. T here is chronic appearing osseous fusion of the proximal radial ulnar joint at t he level of the elbow. There is diffuse fatty atrophy of the muscles of the fore arm distal to this. No deep fascial fluid is seen in the forearm. Evaluation is somewhat limited by inhomogeneous fat saturation and motion artifact. There is m ore extensive subcutaneous edema in the imaged distal arm. There are areas of in tramuscular edema in the distal arm as well as areas of nonspecific deep fascial fluid. No subcutaneous or intramuscular abscess are visualized in the arm. Norm al medial and lateral ligament complexes of the elbow are not seen with certaint y. Examination was not targeted to the evaluation of internal derangement. There is subcutaneous edema throughout the imaged arm, elbow, and proximal forearm. IMPRESSION: 1. Chronic-appearing lateral dislocation of the elbow. Large complex joint effusion in the elbow. If there is a concern for septic arthritis, this c ould be percutaneously sampled. Nonspecific subcutaneous edema throughout the im aged portion of the upper extremity, without a definite subcutaneous abscess. No nspecific areas of intramuscular in the deep fascial edema/fluid in the imaged d istal arm. No intramuscular fluid collection is identified. 2. Mild erosive cuello ges in the dorsal aspect of the distal humerus, most if not all of which has a c hronic imaging appearance. There is mild marrow edema around the largest of thes e erosions, for which osteomyelitis cannot be excluded. However, given the exten sive joint abnormality, one would expect acute osteomyelitis to manifest with a greater degree of active bony destruction and bone marrow edema. Signed: Rahat Britton MDReport Verified Date/Time: 06/23/2018 16:47:56 Reading Location: [address] Reading Room C METABOLIC [id number] 13:26:00* Test Item Value Reference Range Comments SODIUM (BEAKER) (test tzzm=028) 140 meq/L 136-145 POTASSIUM (BEAKER) (test rxvz=505) 5.6 meq/L 3.5-5.1 CHLORIDE (BEAKER) (test rhwe=837) 124 meq/L 98-107 CO2 (BEAKER) (test ruqw=954) 10 meq/L 22-29 BLOOD UREA NITROGEN (BEAKER) (test kmwg=038) 20 mg/dL 7-21 CREATININE (BEAKER) (test efoj=378) 0.80 mg/dL 0.57-1.25 GLUCOSE RANDOM (BEAKER) (test fetw=953) 106 mg/dL 70-105 CALCIUM (BEAKER) (test naac=915) 8.5 mg/dL 8.4-10.2 EGFR (BEAKER) (test rmwe=7516) 73 mL/min/1.73 sq m ESTIMATED GFR IS NOT ACCURATE CREATININE CLEARANCE IN PREDICTING GLOMERULAR FILTRATION RATE. ESTIMATED GFR IS NOT APPLICABLE FOR DIALYSIS PATIENTS. [id number] 13:09:00* Test Item Value Reference Range Comments PHOSPHORUS (BEAKER) (test lvrw=635) 2.4 mg/dL 2.3-4.7 [id number] 13:09:00* Test Item Value Reference Range Comments MAGNESIUM (BEAKER) (test bmas=162) 1.9 mg/dL 1.6-2.6 HEMOGLOBIN AND [id number] 12:52:00* Test Item Value Reference Range Comments HEMOGLOBIN (BEAKER) (test skca=120) 7.5 GM/DL 11.2-15.7 HEMATOCRIT (BEAKER) (test dylk=086) 23.7 % 34.1-44.9 POCT-GLUCOSE [id number] 12:22:00* Test Item Value Reference Range Comments POC-GLUCOSE METER (BEAKER) (test uuez=6581) 128 mg/dL 70-110 TESTED AT [address] [address] BLOOD CULTURE IDENTIFICATION [id number] 11:34:00* Test Item Value Reference Range Comments LISTERIA MONOCYTOGENES (test gszo=0947464) Not detected Not detected STAPHYLOCOCCUS (test quab=3420761) Detected Not detected STAPHYLOCOCCUS AUREUS (test otrt=5203819) Detected Not detected First line therapy: VancomycinID consultation strongly encouraged. Staphylococcus aureus DETECTED MecA DETECTEDReference Range: Not Detected STREPTOCOCCUS (test kroq=6088958) Not detected Not detected STREPTOCOCCUS AGALACTIAE (GROUP B) (test ybrc=2527265) Not detected Not detected STREPTOCOCCUS PNEUMONIAE (test esol=0222377) Not detected Not detected STREPTOCOCCUS PYOGENES (GROUP A) (test faiq=5783405) Not detected Not detected ACINETOBACTER BAUMANNII (test eolq=2213548) Not detected Not detected HAEMOPHILUS INFLUENZAE (test vyfr=6711783) Not detected Not detected NEISSERIA MENINGITIDIS (test xknq=3287884) Not detected Not detected ENTEROBACTERIACEAE (test wlwv=4521047) Not detected Not detected ENTEROBACTER CLOACOE COMPLEX (test cluf=6901975) Not detected Not detected KLEBSIELLA OXYTOCA (test tmih=6465499) Not detected Not detected KLEBSIELLA PNEUMONIAE (test ucnt=7965) Not detected Not detected PROTEUS (test zwmq=9884508) Not detected Not detected SERRATIA MARCESCENS (test rvkv=6317643) Not detected Not detected ABBY ALBICANS (test oahx=0887328) Not detected Not detected ABBY GLABRATA (test qkdb=1958047) Not detected Not detected ABBY KRUSEI (test csjp=3264238) Not detected Not detected ABBY PARAPSILOSIS (test jwck=0643528) Not detected Not detected ABBY TROPICALIS (test jtfc=9846890) Not detected Not detected ESCHERICHIA COLI (test pkqi=1494737) Not detected Not detected METHICILLIN-RESISTANCE GENE (test fwhy=9202890) Detected Not detected VANCOMYCIN-RESISTANCE GENE (test dcno=3511148) Not detected CARBAPENEM-RESISTANCE GENE (test lbks=7307120) Not detected ENTEROCOCCUS-BEAKER (test togz=2017233) Not detected Not detected PSEUDOMONAS AERUGINOSA-BEAKER (test ulbc=4033409) Not detected Not detected Other bacteria and resistance markers not targeted by this PCR panel cannot be e xcluded; therefore clinical correlation and follow up of serology, culture resul ts, and other molecular studies is required. The results are not intended to be used as the sole means for clinical diagnosis or patient management decisions. T his sample was tested at the [facility] using the WochachaArray Blood Culture ID Panel. It is FDA cleared and has been verified and approved by the [facility] for clinical use. Thi s laboratory is CLIA-certified and [employer] ([employer])-accred ited to perform high complexity testing.TROPONIN [id number] 10:05:00* Test Item Value Reference Range Comments TROPONIN I (BIENVENIDO) (test xsfz=690) 0.02 ng/mL 0.00-0.03 Troponin I (TnI) levels must be interpreted in the context of the presenting sym ptoms and the clinical findings. Elevated TnI levels indicate myocardial damage, but are not specific for ischemic heart disease. Elevated TnI levels are seen in patients with other cardiac conditions (including myocarditis and congestive h eart failure), and slight TnI elevations occur in patients with other conditions , including sepsis, renal failure, acidosis, acute neurological disease, and per sistent tachyarrhythmia.POCT-GLUCOSE [id number] 08:12:00* Test Item Value Reference Range Comments POC-GLUCOSE METER (JAMIAInterventional Spine) (test xwzt=1642) 94 mg/dL 70-110 TESTED AT [facility] [address] [address] [id number] 06:55:00* Test Item Value Reference Range Comments PHOSPHORUS (BEAKER) (test nqif=681) 2.1 mg/dL 2.3-4.7 [id number] 06:55:00* Test Item Value Reference Range Comments MAGNESIUM (BEAKER) (test hjqm=174) 1.7 mg/dL 1.6-2.6 CBC W/PLT COUNT & AUTO [id number] 06:28:00* Test Item Value Reference Range Comments WHITE BLOOD CELL COUNT (BEAKER) (test yfnr=174) 18.6 K/ L 3.5-10.5 RED BLOOD CELL COUNT (BEAKER) (test rruv=353) 2.78 M/ L 3.93-5.22 HEMOGLOBIN (BEAKER) (test ccuz=857) 7.3 GM/DL 11.2-15.7 HEMATOCRIT (BEAKER) (test moyw=280) 22.8 % 34.1-44.9 MEAN CORPUSCULAR VOLUME (BEAKER) (test xqhy=542) 82.0 fL 79.4-94.8 MEAN CORPUSCULAR HEMOGLOBIN (BEAKER) (test kxlm=063) 26.3 pg 25.6-32.2 MEAN CORPUSCULAR HEMOGLOBIN CONC (BEAKER) (test mzqi=632) 32.0 GM/DL 32.2-35.5 RED CELL DISTRIBUTION WIDTH (BEAKER) (test bzfm=058) 19.2 % 11.7-14.4 PLATELET COUNT (BEAKER) (test scnt=832) 315 K/CU MM 150-450 MEAN PLATELET VOLUME (BEAKER) (test pcaa=022) 12.0 fL 9.4-12.3 NUCLEATED RED BLOOD CELLS (BEAKER) (test xsjy=815) 0 /100 WBC 0-0 NEUTROPHILS RELATIVE PERCENT (BEAKER) (test lxnl=360) 92 % LYMPHOCYTES RELATIVE PERCENT (BEAKER) (test onmu=109) 4 % MONOCYTES RELATIVE PERCENT (BEAKER) (test eeug=416) 4 % EOSINOPHILS RELATIVE PERCENT (BEAKER) (test xmej=380) 0 % BASOPHILS RELATIVE PERCENT (BEAKER) (test xdlm=195) 0 % NEUTROPHILS ABSOLUTE COUNT (BEAKER) (test nfxu=843) 17.05 K/ L 1.56-6.13 LYMPHOCYTES ABSOLUTE COUNT (BEAKER) (test wroc=561) 0.75 K/ L 1.18-3.74 MONOCYTES ABSOLUTE COUNT (BEAKER) (test xcdc=116) 0.67 K/ L 0.24-0.36 EOSINOPHILS ABSOLUTE COUNT (BEAKER) (test ropf=306) 0.00 K/ L 0.04-0.36 BASOPHILS ABSOLUTE COUNT (BEAKER) (test saor=649) 0.03 K/ L 0.01-0.08 IMMATURE GRANULOCYTES-RELATIVE PERCENT (BEAKER) (test ffrj=6806) 1 % 0-1 POCT-GLUCOSE [id number] 06:11:00* Test Item Value Reference Range Comments POC-GLUCOSE METER (BEAKER) (test rphf=7606) 101 mg/dL 70-110 TESTED AT [facility] [address] [address] BASIC METABOLIC [id number] 05:15:00* Test Item Value Reference Range Comments SODIUM (BEAKER) (test icks=130) 139 meq/L 136-145 POTASSIUM (BEAKER) (test nzki=970) 3.1 meq/L 3.5-5.1 CHLORIDE (BEAKER) (test jdbs=538) 120 meq/L 98-107 CO2 (BEAKER) (test qlnn=617) 11 meq/L 22-29 BLOOD UREA NITROGEN (BEAKER) (test dhns=261) 20 mg/dL 7-21 CREATININE (BEAKER) (test bbgu=780) 0.76 mg/dL 0.57-1.25 GLUCOSE RANDOM (BEAKER) (test fdsz=978) 71 mg/dL 70-105 CALCIUM (BEAKER) (test layp=269) 8.3 mg/dL 8.4-10.2 EGFR (BEAKER) (test lehb=8243) 77 mL/min/1.73 sq m ESTIMATED GFR IS NOT ACCURATE CREATININE CLEARANCE IN PREDICTING GLOMERULAR FILTRATION RATE. ESTIMATED GFR IS NOT APPLICABLE FOR DIALYSIS PATIENTS. BASIC METABOLIC [id number] 02:36:00* Test Item Value Reference Range Comments SODIUM (BEAKER) (test rphr=930) 138 meq/L 136-145 POTASSIUM (BEAKER) (test dqct=817) 2.7 meq/L 3.5-5.1 CHLORIDE (BEAKER) (test fgks=725) 118 meq/L 98-107 CO2 (BEAKER) (test mhaz=756) 11 meq/L 22-29 BLOOD UREA NITROGEN (BEAKER) (test haux=878) 21 mg/dL 7-21 CREATININE (BEAKER) (test jaui=384) 0.78 mg/dL 0.57-1.25 GLUCOSE RANDOM (BEAKER) (test ffav=195) 74 mg/dL 70-105 CALCIUM (BEAKER) (test vuxw=695) 8.0 mg/dL 8.4-10.2 EGFR (BEAKER) (test pqoz=9602) 75 mL/min/1.73 sq m ESTIMATED GFR IS NOT ACCURATE CREATININE CLEARANCE IN PREDICTING GLOMERULAR FILTRATION RATE. ESTIMATED GFR IS NOT APPLICABLE FOR DIALYSIS PATIENTS. TROPONIN [id number] 01:10:00* Test Item Value Reference Range Comments TROPONIN I (BEAKER) (test sirw=897) 0.04 ng/mL 0.00-0.03 Troponin I (TnI) levels must be interpreted in the context of the presenting sym ptoms and the clinical findings. Elevated TnI levels indicate myocardial damage, but are not specific for ischemic heart disease. Elevated TnI levels are seen in patients with other cardiac conditions (including myocarditis and congestive h eart failure), and slight TnI elevations occur in patients with other conditions , including sepsis, renal failure, acidosis, acute neurological disease, and per sistent tachyarrhythmia.BASIC METABOLIC [id number] 01:10:00* Test Item Value Reference Range Comments SODIUM (BEAKER) (test ioiw=000) 137 meq/L 136-145 POTASSIUM (BEAKER) (test mfwf=368) 2.7 meq/L 3.5-5.1 CHLORIDE (BEAKER) (test mfpq=090) 120 meq/L 98-107 CO2 (BEAKER) (test mxpq=610) 10 meq/L 22-29 BLOOD UREA NITROGEN (BEAKER) (test pdcr=922) 21 mg/dL 7-21 CREATININE (BEAKER) (test kzux=557) 0.78 mg/dL 0.57-1.25 GLUCOSE RANDOM (BEAKER) (test ofel=405) 69 mg/dL 70-105 CALCIUM (BEAKER) (test zdaz=695) 7.9 mg/dL 8.4-10.2 EGFR (BEAKER) (test qulw=0064) 75 mL/min/1.73 sq m ESTIMATED GFR IS NOT ACCURATE CREATININE CLEARANCE IN PREDICTING GLOMERULAR FILTRATION RATE. ESTIMATED GFR IS NOT APPLICABLE FOR DIALYSIS PATIENTS. TROPONIN [id number] 00:15:00* Test Item Value Reference Range Comments TROPONIN I (BEAKER) (test ynwq=334) 0.04 ng/mL 0.00-0.03 Troponin I (TnI) levels must be interpreted in the context of the presenting sym ptoms and the clinical findings. Elevated TnI levels indicate myocardial damage, but are not specific for ischemic heart disease. Elevated TnI levels are seen in patients with other cardiac conditions (including myocarditis and congestive h eart failure), and slight TnI elevations occur in patients with other conditions , including sepsis, renal failure, acidosis, acute neurological disease, and per sistent tachyarrhythmia.CREATININE, RANDOM [id number] 23:35:00* Test Item Value Reference Range Comments CREATININE URINE (BEAKER) (test ousk=195) 35.9 mg/dL Reference Range: No NormalsSODIUM, RANDOM [id number] 23:35:00* Test Item Value Reference Range Comments SODIUM URINE (BEAKER) (test wmez=595) 26 meq/L Reference Range: No NormalsPOCT-GLUCOSE [id number] 22:33:00* Test Item Value Reference Range Comments POC-GLUCOSE METER (BEAKER) (test juzn=7360) 73 mg/dL 70-110 TESTED AT [facility] [address] [address] POCT-LACTIC ACID, [id number] 22:27:00* Test Item Value Reference Range Comments POC-LACTIC ACID, VENOUS (BEAKER) (test rdvu=9483) 0.7 mmol/L 0.9-1.7 TESTED AT [facility] [address] [address] URINALYSIS W/ REFLEX URINE [id number] 20:57:00* Test Item Value Reference Range Comments COLOR (BEAKER) (test bdqk=890) Yellow CLARITY (BEAKER) (test mpaw=413) Clear SPECIFIC GRAVITY UA (BEAKER) (test teob=437) 1.024 1.001-1.035 PH UA (BEAKER) (test ieyk=954) 5.5 5.0-8.0 PROTEIN UA (BEAKER) (test aafh=840) 30 mg/dL Negative GLUCOSE UA (BEAKER) (test wlfx=839) Negative Negative KETONES UA (BEAKER) (test bcsu=738) Negative Negative BILIRUBIN UA (BEAKER) (test sfxx=616) Negative Negative BLOOD UA (BEAKER) (test leha=084) Negative Negative NITRITE UA (BEAKER) (test eqop=234) Negative Negative LEUKOCYTE ESTERASE UA (BEAKER) (test kwng=873) Negative Negative UROBILINOGEN UA (BEAKER) (test ifgl=694) 0.2 mg/dL 0.2-1.0 RBC UA (BEAKER) (test xffl=854) 1 /HPF WBC UA (BEAKER) (test unxq=940) 2 /HPF BACTERIA (BEAKER) (test pjzg=779) Rare SOURCE(BEAKER) (test xaao=2656) CT, CHEST WITH IV CONTRAST- PE TEST [id number] 18:09:00Reason for exam:-> FALLReason for exam:->SHORTNESS OF BREATHWhat is the patient's sedation requirement?->No SedationFINAL REPORT EXAM: CT of the chest, with contrast, PE protocol CLINICAL HISTORY: Shortness of breath. Chest pain, acute, PE suspected, intermediate probability, positive D-dimer. Fall. TECHNIQUE: Chest CT was performed with intravenous contrast utilizing a PE protocol. 2-D and 3-D reformatted images were obtained. This exam was performed according to our departmental dose optimization program which includes automated exposure control, adjustment of the mA and/or kV according to patient's size and/or use of iterative reconstructive technique. COMPARISON: None FINDINGS: LOWER NECK: Within normal limits.AIRWAYS AND LUNGS: Patent central tracheobronchial tree. Minimal dependent atelectasis in the left lower lobe. Minimal subsegmental atelectasis in the right lower lobe.PLEURA: No pleural effusion or pneumothorax.VESSELS: Atherosclerotic calcifications of the aorta and branches. No pulmonary embolism.HEART: Normal heart size. No pericardial effusion.VY AND MEDIASTINUM: Within normal limits.VISUALIZED UPPER ABDOMEN: Within normal limits.SOFT TISSUES: Within normal limits.BONES: Chronic fracture deformity of the right proximal humerus. Healed fractures of the left third through sixth anterior ribs. No acute fracture. Degenerative changes of the visualized spine IMPRESSION: No pulmonary embolism. Chronic fracture deformity of the right proximal humerus. Healed fractures of the left anterior third through sixth ribs. No acute fracture. Signed: Grayson Russ MDReport Verif ied Date/Time: 06/22/2018 18:09:28 Reading Location: [facility] [address] [place] [facility] Room 0 6:09 PM TSH/FREE T4 IF [id number] 17:43:00* Test Item Value Reference Range Comments THYROID STIMULATING HORMONE (BIENVENIDO) (test rzmw=457) 1.77 uIU/mL 0.35-4.94 B-TYPE NATRIURETIC FACTOR (BNP)2018-06-22 17:29:00* Test Item Value Reference Range Comments B-TYPE NATRIURETIC PEPTIDE (BIENVENIDO) (test zxpd=761) 614 pg/mL 0-100 RAD, ELBOW, 2 VIEWS, [id number] 17:22:00Reason for exam:->FALL Reason for exam:->SHORTNESS OF BREATH Should this be performed at the bedside?->YesFINAL REPORT RAD, ELBOW, 2 VIEWS, RIGHT CLINICAL INDICATION: Fall and shortness of breath. COMPARISON: None FINDINGS: Two views of the right elbow were obtained. There is generalized osteopenia. There is diffuse soft tissue swelling about the elbow. There is an elbow joint effusion. There is anteromedial dislocation of the distal humerus with respect to the radius and ul na. There is no acute fracture. There are severe degenerative changes of the elb ow joint with sclerosis, osteophytes, cystic change and flattening of the distal humerus. There are multiple calcific densities about the elbow which may repres ent intra-articular loose bodies and/or phleboliths. IMPRESSION:Elbow joint disl ocation. No acute fracture.Severe degenerative changes of the elbow joint. Elbo w joint effusion. Signed: Grayson Russ MDReport Verified Date/Time: 019 17:22:21 Reading Location: [address] Reading Room [facility] signed by: GRAYSON RUSS MD on 06/22/2018 05:22 PM PROCALCITONIN 2018-06-22 17:17:00* Test Item Value Reference Range Comments PROCALCITONIN (BIENVENIDO) (test rkup=5725) 2.01 ng/mL <0.05 SEPSIS RISK (ng/mL)Low: 0.05-0.50Intermediate: 0.51-2.00High: > =2.01RAD, CHEST, 1 VIEW, NON [id number] 17:14:00Reason for exam:->FALLReason for exam:->SHORTNESS OF BREATHShould this be performed at the bedside?->YesFINAL REPORT Chest one view. Clinical history: Fall. Shortness of breath. Comparison: None. Technique: A single frontal view of the chest was obtained. Findings: The cardiomediastinal contours are normal. There is no focal pulmonary consolidation, pleural effusion or pneumothorax. There is no p ulmonary edema. The bony thorax is demineralized but otherwise unremarkable. Imp ression: No focal pulmonary consolidation. Signed: Grayson Russ MDReport V erified Date/Time: 06/22/2018 17:14:18 Reading Location: [address] Reading Room 19 05:14 PM CBC W/PLT COUNT & AUTO [id number] 17:12:00* Test Item Value Reference Range Comments WHITE BLOOD CELL COUNT (BEAKER) (test wxam=978) 23.3 K/ L 3.5-10.5 RED BLOOD CELL COUNT (BEAKER) (test tklw=843) 3.72 M/ L 3.93-5.22 HEMOGLOBIN (BEAKER) (test audo=580) 9.8 GM/DL 11.2-15.7 HEMATOCRIT (BEAKER) (test oeyr=063) 31.9 % 34.1-44.9 MEAN CORPUSCULAR VOLUME (BEAKER) (test ipdt=130) 85.8 fL 79.4-94.8 MEAN CORPUSCULAR HEMOGLOBIN (BEAKER) (test hnly=459) 26.3 pg 25.6-32.2 MEAN CORPUSCULAR HEMOGLOBIN CONC (BEAKER) (test nnhw=888) 30.7 GM/DL 32.2-35.5 RED CELL DISTRIBUTION WIDTH (BEAKER) (test vqmy=554) 19.5 % 11.7-14.4 PLATELET COUNT (BEAKER) (test zvih=967) 417 K/CU MM 150-450 MEAN PLATELET VOLUME (BEAKER) (test idrr=687) 11.9 fL 9.4-12.3 NUCLEATED RED BLOOD CELLS (BEAKER) (test ghsf=308) 0 /100 WBC 0-0 (CELLAVISION MANUAL DIFF)2018-06-22 17:12:00* Test Item Value Reference Range Comments NEUTROPHILS - REL (CELLAVISION)(BEAKER) (test aebl=7091) 61 % LYMPHOCYTES - REL (CELLAVISION)(BEAKER) (test qkqp=4851) 2 % METAMYELOCYTES - REL (CELLAVISION)(BEAKER) (test zehj=3327) 6 % 0-0 BANDS - REL (CELLAVISION)(BEAKER) (test ozfk=7241) 31 % 0-10 NEUTROPHILS - ABS (CELLAVISION)(BEAKER) (test zqyi=3322) 14.21 K/ul 1.56-6.13 LYMPHOCYTES - ABS (CELLAVISION)(BEAKER) (test ljhb=7609) 0.47 K/ul 1.18-3.74 METAMYELOCYTES - ABS (CELLAVISION)(BEAKER) (test guez=3299) 1.40 K/uL 0.00-0.00 BANDS - ABS (CELLAVISION)(BEAKER) (test xapo=2797) 7.22 K/uL 0.00-0.80 TOTAL COUNTED (BEAKER) (test hduz=0694) 100 GIANT PLATELETS (BEAKER) (test dqwc=944) Present DOHLE BODIES (BEAKER) (test oyzj=102) Present TOXIC GRANULATION (BEAKER) (test lfid=574) Present POLYCHROMATOPHILLIC RBCS(BEAKER) (test eafb=932) 1+ few HYPOCHROMIA (BEAKER) (test vfdy=081) 1+ few ANISOCYTOSIS (BEAKER) (test pedl=950) 2+ moderate MICROCYTES (BEAKER) (test aoyj=535) 1+ few POIKILOCYTES (BEAKER) (test mfla=977) 2+ moderate ROULEAUX (BEAKER) (test jggo=433) 1+ few TEAR DROP CELLS (BEAKER) (test ufyx=705) 1+ few MORALES-JOLLY BODIES (BEAKER) (test eivi=033) 1+ few BASOPHILIC STIPPLING (BEAKER) (test uicy=400) Present ARTIFACT (CELLAVISION)(BEAKER) (test kptl=0556) Present PLATELET CONCENTRATION (CELLAVISION)(BEAKER) (test pfkc=8149) Adequate Received comment: User comments: Slide comments: OXYGEN SATURATION, MEASURED 2018-06-22 17:06:00* Test Item Value Reference Range Comments O2 SATURATION (MEASURED) (BEAKER) (test aglg=8959) 19.0 % If patient has internal jugular ( IJ) or subclavian central line or PICC line. D raw from distal port. Label as central venous oxygen.TROPONIN [id number] 16:53:00* Test Item Value Reference Range Comments TROPONIN I (BEAKER) (test cqvq=449) 0.03 ng/mL 0.00-0.03 Troponin I (TnI) levels must be interpreted in the context of the presenting sym ptoms and the clinical findings. Elevated TnI levels indicate myocardial damage, but are not specific for ischemic heart disease. Elevated TnI levels are seen in patients with other cardiac conditions (including myocarditis and congestive h eart failure), and slight TnI elevations occur in patients with other conditions , including sepsis, renal failure, acidosis, acute neurological disease, and per sistent tachyarrhythmia.[id number] 16:53:00* Test Item Value Reference Range Comments MAGNESIUM (BEAKER) (test kyth=022) 1.0 mg/dL 1.6-2.6 Specimen slightly hemolyzed COMPREHENSIVE METABOLIC [id number] 16:52:00* Test Item Value Reference Range Comments TOTAL PROTEIN (BEAKER) (test rnjd=267) 6.0 gm/dL 6.0-8.3 Specimen slightly hemolyzed ALBUMIN (BEAKER) (test ypfs=5087) 3.1 g/dL 3.5-5.0 Specimen slightly hemolyzed ALKALINE PHOSPHATASE (BEAKER) (test xska=672) 103 U/L 40-150 BILIRUBIN TOTAL (BEAKER) (test qiop=899) 0.2 mg/dL 0.2-1.2 Specimen slightly hemolyzed SODIUM (BEAKER) (test olsn=784) 139 meq/L 136-145 POTASSIUM (BEAKER) (test xxsm=077) 3.2 meq/L 3.5-5.1 Specimen slightly hemolyzed CHLORIDE (BEAKER) (test sdqp=898) 116 meq/L 98-107 CO2 (BEAKER) (test lgwk=364) 9 meq/L 22-29 BLOOD UREA NITROGEN (BEAKER) (test tbdf=783) 31 mg/dL 7-21 CREATININE (BEAKER) (test laic=676) 1.12 mg/dL 0.57-1.25 Specimen slightly hemolyzed GLUCOSE RANDOM (BEAKER) (test pqba=978) 141 mg/dL 70-105 CALCIUM (BEAKER) (test eqrv=483) 9.6 mg/dL 8.4-10.2 AST (SGOT) (BEAKER) (test ould=842) 21 U/L 5-34 Specimen slightly hemolyzed ALT (SGPT) (BEAKER) (test hmsl=752) 51 U/L 6-55 Specimen slightly hemolyzed EGFR (BEAKER) (test irtu=3131) 49 mL/min/1.73 sq m ESTIMATED GFR IS NOT ACCURATE CREATININE CLEARANCE IN PREDICTING GLOMERULAR FILTRATION RATE. ESTIMATED GFR IS NOT APPLICABLE FOR DIALYSIS PATIENTS. [id number] 16:47:00* Test Item Value Reference Range Comments PHOSPHORUS (BEAKER) (test tsqr=530) 1.6 mg/dL 2.3-4.7 Specimen slightly hemolyzed [id number] 16:46:00* Test Item Value Reference Range Comments D-DIMER QUANTITATIVE (BEAKER) (test pfod=357) 2.94 MG/L FEU <0.50 Intended Use: The D-Dimer Assay can be used to aid in the diagnosis of Deep Vein Thrombosis (DVT) and Pulmonary Embolism Disease (PED).In patients with low pre- test probability, various studies concerning STA Liatest D-dimer test have repor joey that with a cutoff value of 0.50 MG/L FEU, the Negative Predictive Value (RECEIVER V) regarding the exclusion of thrombosis is within 95-100% range.PT/APTT 2018-06-22 16:45:00* Test Item Value Reference Range Comments PROTIME (BEAKER) (test vuhl=309) 15.7 seconds 11.7-14.7 INR (BEAKER) (test dwla=209) 1.2 <=5.9 PARTIAL THROMBOPLASTIN TIME (BEAKER) (test rhyx=747) 48.4 seconds 22.5-36.0 RECOMMENDED COUMADIN/WARFARIN INR THERAPY RANGESSTANDARD DOSE: 2.0 - 3.0 Inclu earl: PROPHYLAXIS for venous thrombosis, systemic embolization; TREATMENT for zahra ous thrombosis and/or pulmonary embolus.HIGH RISK: Target INR is 2.5-3.5 for pat ients with mechanical heart valves.POCT-LACTIC ACID, [id number] 16:25:00* Test Item Value Reference Range Comments POC-LACTIC ACID, VENOUS (BIENVENIDO) (test tmty=9792) 4.6 mmol/L 0.9-1.7 TESTED AT [facility] [address] [address] CR - XRAY TIB-FIB XR AP/LAT [id number] 11:18:15CLINICAL INDICATION: L97.229 Non-pressure chronic ulcer of left calf with unsp severityFINDINGS:COMPARISON: NoneBone alignment is normal. No acute fractures or destructive osseous lesions are seen. No regional soft tissue swelling observed.IMPRESSION:Unremarkable appearance of the left tibia and fibula.Mammo Digital Mammography Screening 2018-03-07 11:17:21CLINICAL INDICATION: This is a routine annual screening mammogram. The patient has no complaints.MODALITY: Siemens Inspiration Full Field Digital MammographyTECHNIQUE: Digital acquisition of the breasts is performed on the ACR accredited Full Field Digital Mammography Unit. Computer Assisted Detection (CAD) is then accomplished using [employer]. Imaging of the bilateral breasts is performed.FINDINGS:COMPARISON STUDY: NoneThere are scattered fibroglandular tissues in both breasts.There are no suspicious masses, calcifications or architectural distortion in either breast.IMPRESSION:No mammographic evidence of malignancy. RECOMMENDATION: Routine annual screening mammogram in 1 year is recommended.Category: BIRADS 1 - Negative. For internal use only N:12CT ABDOMEN AND PELVIS [id number] 13:17:24CLINICAL INDICATION: R10.84 Generalized abdominal painL88 Pyoderma gangrenosumMODALITY: [employer] [address] (Iterative dose reduction technique is used).TECHNIQUE: Helical imaging of the abdomen and pelvis is performed. Oral contrast is administered. 91 mls optiray are administered IV. Imaging performed prior to and after administration of contrast.Computed Tomography Dose Index: 21.2 mGy. IMPRESSION:1. Small cystic lesion in the pancreatic tail with mild per ipancreatic inflammatory changes. Differential includes pancreatitis with pseudo cyst versus cystic pancreatic neoplasm. Recommend correlation with the patient s symptoms and lipase levels. Short interval follow-up CT or MRI with and without contrast is recommended.2. Sigmoid diverticulosis without evidence of divertic ulitis.3. Mild bronchial mucus plugging in the lung bases.FINDINGS:COMPARISON: NoneMild bronchial mucus plugging is noted in the lung bases. No suspicious pu lmonary nodules in the visualized lung bases. No pleural effusions.The liver is normal in size and contour with no focal attenuation defect suspicious for repla cement lesion or abnormal contrast enhancement. Hepatic veins, portal venous sys tem and biliary tree are normal. The gallbladder is normal in appearance.Stomach and duodenum are unremarkable. The spleen is normal in size and contour. Within the distal tail of the pancreas, there is an ill-defined, 1.5 x 1.1 x 0.9 cm low density lesion which exhibits fluid attenuation and no definite solid enhancem ent. There are is mild peripancreatic fat stranding and trace fluid extending in to the left paracolic gutter. There is no pancreatic duct dilatation.Adrenal gla nds and kidneys are normal. There are no renal calculi, hydronephrosis or masses noted.Neither retrocrural nor retroperitoneal adenopathy is present. Moderate a therosclerotic calcifications are noted in the abdominal aorta and iliac branche s without aneurysm.Sigmoid diverticulosis is noted without evidence of diverticu litis. The bowel is otherwise unremarkable. Normal appendix. Omentum and mesente ry are unremarkable.Abdominal wall is intact.No ascites visualized.No lytic or b lastic osseous lesions are observed. Advanced multilevel spondylosis is noted in the lumbar spine.The urinary bladder is unremarkable. The uterus is atrophic. No suspicious adnexal masses. No free fluid is present in the pelvis.No pelvic or inguinal lymphadenopathy is evident.PQRS 436: G9637 (For official use only.) [id number] 10:42:00* Test Item Value Reference Range Comments POC-CREATININE (Orthogem) (test znuu=5762) 0.6 mg/dL 0.6-1.3 TESTED AT [address] [address] POC-EGFR (Orthogem) (test barv=2172) 102 mL/min/1.73M2 ANAEROBIC [id number] 16:10:00* Test Item Value Reference Range Comments CULTURE (Orthogem) (test ryaz=9645) No anaerobes isolated SURGICALLY OBTAINED CULTURE + GRAM [id number] 11:31:00* Test Item Value Reference Range Comments CULTURE (Orthogem) (test tcbz=3846) COAGULASE NEGATIVE STAPHYLOCOCCUS <1+ Coagulase negative Staphylococcus Clindamycin (test code=10) Erythromycin (test code=4) Levofloxacin (test code=22) Linezolid (test code=40) Oxacillin (test code=14) Rifampin (test code=43) Tetracycline (test code=2) Trimethoprim + Sulfamethoxazole (test code=47) Vancomycin (test code=13) GRAM STAIN RESULT (Orthogem) (test cotb=5838) <1+ WBCs GRAM STAIN RESULT (Orthogem) (test nypz=436117) No organisms seen
[2019-02-27 09:31] LABS: INR 0.95; PROTHROMBIN TIME 13.2 seconds (11.9-14.5)
[2019-02-27 09:32] LABS: PARTIAL THROMBOPLASTIN TIME 27.7 seconds (23.8-35.5)
--- NOTE | 2019-02-27 10:59 | NUR ---
WOUND CARE TREATMENT: PATIENT RESTING IN PACU WITH NURSE AT BEDSIDE; APPLIED NWPT VAC TO LEFT LOWER LEG WOUND S/P STSG TODAY IN OR PER DR. HOLDEN. XEROFORM USED PER PROTOCOL OVER THE GRAFT PRIOR TO VAC PLACEMENT; PATIENT TOLERATED PROCEDURE WELL. WOUND VAC IS INTACT, SUCTION CONTINUOUS AT 125mmHg. KERLIX AND LIGHT PAPO APPLIED. PATIENT HAS A FOLLOW UP APPOINTMENT ON SUNDAY, Feb AT [facility]PAT[facility]. [facility] FORMS SIGNED AND COPIES OF ADDITIONAL VAC INSTRUCTIONS GIVEN TO PATIENT AND FAMILY. FAMILY VERBALIZED UNDERSTANDING OF VAC CARE INSTRUCTIONS.
[2019-02-27 11:30] VITALS: BP 135/76
--- NOTE | 2019-02-28 14:31 | Operative Report ---
DATE OF PROCEDURE: 02/27/2019 SURGEON: Darrell Tatum MD PREOPERATIVE DIAGNOSIS: Wound, left leg, pyoderma gangrenosum, 30 cm2. POSTOPERATIVE DIAGNOSIS: Wound, left leg, pyoderma gangrenosum, 30 cm2. PROCEDURES: 1. Excisional preparation of wound, left leg, 30 cm2. 2. Split-thickness skin grafting, 30 cm2. ANESTHESIA: General. HISTORY: The patient is a 63-year-old female with pyoderma gangrenosum wound on the anterior aspect of the left leg. Risks, benefits, and alternatives of treatment discussed with the patient. She is prepared to undergo the procedure as outlined. PROCEDURE IN DETAIL: The patient was marked preoperatively in the holding area. She was brought to the operating theater. After the induction of adequate general anesthesia, she was prepped and draped in a supine position and a time-out was performed. The procedure was begun by sharply excising the edges of the wound for approximately 1 cm. At this point, the wound was curetted from all the colonized granulation tissue that has accumulated. At this point, the wound was then pulse lavaged with several liters of antibiotic-containing solution. The wound has now been returned to its acute state and measurements show that the defect was 30 cm2. The split-thickness skin graft was then harvested from the left anterior and lateral thigh using a dermatome. The thickness was approximately 12 thousandth of an inch. The graft was then meshed in a 1-1/2 to 1 fashion, placed onto the wound bed and secured using surgical clips. Mupirocin ointment, Xeroform gauze, and then a VAC dressing are applied over the skin graft site. It was set for 125 mm of continuous negative pressure and the seal was noted to be satisfactory. The donor site was dressed with Xeroform gauze and sterile bulky dressings. The estimated blood loss of procedure was approximately 25 mL. She tolerated the procedure well and was brought to recovery room in satisfactory condition and discharged with a postoperative instruction sheet as well as a followup appointment. MD GARRETT Pike/SALAZARL /[id number]
== END | disposition home or self-care (01) ==
LOC: OR 07:56
PROVIDERS: ATTEND Plastic Surgery
DX: L88 Pyoderma gangrenosum (principal); M86.621 Other chronic osteomyelitis, right humerus; E11.9 Type 2 diabetes mellitus without complications; I48.91 Unspecified atrial fibrillation; H00.019 Hordeolum externum unspecified eye, unspecified eyelid; I10 Essential (primary) hypertension; Z88.8 Allergy status to other drugs, medicaments and biological substances; Z01.810 Encounter for preprocedural cardiovascular examination; Z01.812 Encounter for preprocedural laboratory examination; Z79.01 Long term (current) use of anticoagulants; Z79.84 Long term (current) use of oral hypoglycemic drugs; Z87.891 Personal history of nicotine dependence
CPT/HCPCS: 15002; 15100; 36415 ×2; 80048; 82948; 85025; 85610; 85730; 93005; J0690; J1100; J2001; J2250; J2405; J2704; J3010; J7070

== ENCOUNTER → 2019-03-03 | Outpatient (RCR) | payer MEDICARE, OTHER ==
[~2019-03-03] MED LIST changes: +BACITRACIN 50,000 UNIT VIAL ONE; -CEFAZOLIN SOD 1 GM/NS 50ML 50 ML IV ONE; +COLLAGENASE OINTMENT 30 GM TUBE ONE; -DEXAMETHASONE SOD PHOS INJ 4 MG/ML VIAL ONE; -DEXTROSE 5% 250ML 250 ML IV ONE; -FENTANYL CITRATE/PF 100MCG/2 ML INJ ONE; -LIDOCAINE HCL 2% LOCAL INJ 5 ML SDV VIAL INJ ONE; +LIDOCAINE/PRILOCAINE 2.5-2.5% KIT ONE; -MIDAZOLAM HCL 2 MG/2 ML VIAL ONE; +MINERAL OIL STERILE 10ML VIAL ONE; +MUPIROCIN 2% OINT 22 GM TUBE ONE; -ONDANSETRON HCL INJ 2MG/ML 2ML 2 MG/ML VIAL ONE; -PROPOFOL IV EMULSION 10 MG/ML 20 ML VIAL ONE; -SEVOFLURANE INHAL SOLN 250 ML PEN BTL ONE
== END ==
LOC: WCC 02-05 14:06
PROVIDERS: ATTEND Family Medicine
DX: E11.8 Type 2 diabetes mellitus with unspecified complications (principal); S81.802A Unspecified open wound, left lower leg, initial encounter; I87.2 Venous insufficiency (chronic) (peripheral); L88 Pyoderma gangrenosum; G99.0 Autonomic neuropathy in diseases classified elsewhere; I10 Essential (primary) hypertension; D89.89 Other specified disorders involving the immune mechanism, not elsewhere classified; I48.91 Unspecified atrial fibrillation; M13.80 Other specified arthritis, unspecified site; W45.8XXA Other foreign body or object entering through skin, initial encounter
CPT/HCPCS: 36415; 82948

== ENCOUNTER → 2019-03-17 | Outpatient (CLI) | payer MEDICARE ==
[~2019-03-17] MED LIST changes: -BACITRACIN 50,000 UNIT VIAL ONE; -COLLAGENASE OINTMENT 30 GM TUBE ONE; -LIDOCAINE/PRILOCAINE 2.5-2.5% KIT ONE; -MINERAL OIL STERILE 10ML VIAL ONE; -MUPIROCIN 2% OINT 22 GM TUBE ONE
--- NOTE | 2019-03-17 12:17 | Diagnostic Imaging Report ---
Chest, 2 views, 03/17/2019. History: Preop, hyperbaric chamber. Comparison: None available. Findings: The cardiomediastinal silhouette and pulmonary vasculature are within normal limits. The lungs are clear without evidence of consolidation or pleural effusion. Advanced degenerative changes are present throughout the thoracic spine. There are no acute osseous or soft tissue abnormalities. Impression: No acute cardiopulmonary abnormality. Signed by: Stefano Roger on 03/17/2019 12:13 PM
== END ==
LOC: RAD 11:29
PROVIDERS: ATTEND Plastic Surgery
DX: Z01.810 Encounter for preprocedural cardiovascular examination (principal); Z01.811 Encounter for preprocedural respiratory examination
CPT/HCPCS: 71046; 93306

== ENCOUNTER → 2019-04-03 | Outpatient (RCR) | payer MEDICARE ==
[~2019-04-03] MED LIST changes: +COLLAGENASE OINTMENT 30 GM TUBE ONE; +LIDOCAINE/PRILOCAINE 2.5-2.5% KIT ONE; +MINERAL OIL/PETROLAT/GLYCERI 6OZ BTL ONE; +MUPIROCIN 2% OINT 22 GM TUBE ONE
== END ==
LOC: WCC 03-10 14:23
PROVIDERS: ATTEND Family Medicine
DX: T81.89XA Other complications of procedures, not elsewhere classified, initial encounter (principal); Y83.8 Other surgical procedures as the cause of abnormal reaction of the patient, or of later complication, without mention of misadventure at the time of the procedure; E11.8 Type 2 diabetes mellitus with unspecified complications; S81.802A Unspecified open wound, left lower leg, initial encounter; I87.2 Venous insufficiency (chronic) (peripheral); L88 Pyoderma gangrenosum; I10 Essential (primary) hypertension; D89.89 Other specified disorders involving the immune mechanism, not elsewhere classified; G99.0 Autonomic neuropathy in diseases classified elsewhere; I48.91 Unspecified atrial fibrillation; M13.80 Other specified arthritis, unspecified site; W45.8XXA Other foreign body or object entering through skin, initial encounter
CPT/HCPCS: 11042 ×2; 11045; 36415 ×3; 82948 ×3; 99212; 99213 ×4; G0277 ×2

== ENCOUNTER 2019-04-30 10:08 | Outpatient (RCR) | payer MEDICARE ==
[~2019-04-30 10:08] MED LIST changes: +LIDOCAINE VISC 2% SOLN 15 ML UDC ONE; -MINERAL OIL/PETROLAT/GLYCERI 6OZ BTL ONE
[2019-04-30] MEDS ORDERED: MUPIROCIN 2% OINT 22 GM TUBE ONE (17:13)
[2019-04-30] MEDS ORDERED: COLLAGENASE OINTMENT 30 GM TUBE ONE (17:13)
[2019-04-30] MEDS ORDERED: LIDOCAINE/PRILOCAINE 2.5-2.5% KIT ONE (17:13)
== END 2019-05-03 ==
LOC: WCC 10:08
PROVIDERS: ATTEND Family Medicine
DX: T81.89XA Other complications of procedures, not elsewhere classified, initial encounter (principal); E11.8 Type 2 diabetes mellitus with unspecified complications; Y83.8 Other surgical procedures as the cause of abnormal reaction of the patient, or of later complication, without mention of misadventure at the time of the procedure; S81.802A Unspecified open wound, left lower leg, initial encounter; S91.301A Unspecified open wound, right foot, initial encounter; I87.2 Venous insufficiency (chronic) (peripheral); L84 Corns and callosities; L88 Pyoderma gangrenosum; I10 Essential (primary) hypertension; W45.8XXA Other foreign body or object entering through skin, initial encounter; M13.80 Other specified arthritis, unspecified site; I48.91 Unspecified atrial fibrillation; G99.0 Autonomic neuropathy in diseases classified elsewhere; D89.89 Other specified disorders involving the immune mechanism, not elsewhere classified; Z01.810 Encounter for preprocedural cardiovascular examination
CPT/HCPCS: 11042 ×3; 11045 ×3; 36415 ×10; 82948 ×12; 97602 ×10; 99211; 99212; G0277 ×14

== ENCOUNTER 2019-08-01 12:26 | Outpatient (RCR) | payer MEDICARE ==
[~2019-08-01 12:26] MED LIST changes: -LIDOCAINE VISC 2% SOLN 15 ML UDC ONE
== END 2019-08-02 ==
LOC: WCC 12:26
PROVIDERS: ATTEND Family Medicine
DX: T81.89XA Other complications of procedures, not elsewhere classified, initial encounter (principal); T86.821 Skin graft (allograft) (autograft) failure; Y83.8 Other surgical procedures as the cause of abnormal reaction of the patient, or of later complication, without mention of misadventure at the time of the procedure; E11.8 Type 2 diabetes mellitus with unspecified complications; S81.802A Unspecified open wound, left lower leg, initial encounter; I87.2 Venous insufficiency (chronic) (peripheral); L84 Corns and callosities; M77.31 Calcaneal spur, right foot; L88 Pyoderma gangrenosum; I10 Essential (primary) hypertension; Z94.5 Skin transplant status; D89.89 Other specified disorders involving the immune mechanism, not elsewhere classified; G99.0 Autonomic neuropathy in diseases classified elsewhere; I48.91 Unspecified atrial fibrillation; W45.8XXA Other foreign body or object entering through skin, initial encounter; Z01.810 Encounter for preprocedural cardiovascular examination; M13.80 Other specified arthritis, unspecified site
CPT/HCPCS: 36415; 82948

== ENCOUNTER 2019-09-01 12:03 | Outpatient (RCR) | payer MEDICARE ==
[2019-09-01] MEDS ORDERED: COLLAGENASE OINTMENT 30 GM TUBE ONE (18:08)
[2019-09-01] MEDS ORDERED: MUPIROCIN 2% OINT 22 GM TUBE ONE (18:08)
== END 2019-09-02 ==
LOC: WCC 12:03
PROVIDERS: ATTEND Family Medicine
DX: T81.89XA Other complications of procedures, not elsewhere classified, initial encounter (principal); T86.821 Skin graft (allograft) (autograft) failure; Y83.8 Other surgical procedures as the cause of abnormal reaction of the patient, or of later complication, without mention of misadventure at the time of the procedure; E11.8 Type 2 diabetes mellitus with unspecified complications; Z94.5 Skin transplant status; S81.802A Unspecified open wound, left lower leg, initial encounter; L88 Pyoderma gangrenosum; I87.2 Venous insufficiency (chronic) (peripheral); L84 Corns and callosities; M77.31 Calcaneal spur, right foot; I10 Essential (primary) hypertension; D89.89 Other specified disorders involving the immune mechanism, not elsewhere classified; G99.0 Autonomic neuropathy in diseases classified elsewhere; I48.91 Unspecified atrial fibrillation; W45.8XXA Other foreign body or object entering through skin, initial encounter; M13.80 Other specified arthritis, unspecified site; Z01.810 Encounter for preprocedural cardiovascular examination
CPT/HCPCS: 36415; 82948

== ENCOUNTER 2019-10-01 12:13 | Outpatient (RCR) | payer MEDICARE ==
[2019-10-01] MEDS ORDERED: LIDOCAINE/PRILOCAINE 2.5-2.5% KIT ONE (13:45)
== END 2019-10-02 ==
LOC: WCC 12:13
PROVIDERS: ATTEND Family Medicine
DX: T81.89XA Other complications of procedures, not elsewhere classified, initial encounter (principal); T86.821 Skin graft (allograft) (autograft) failure; Y83.8 Other surgical procedures as the cause of abnormal reaction of the patient, or of later complication, without mention of misadventure at the time of the procedure; E11.8 Type 2 diabetes mellitus with unspecified complications; S81.802A Unspecified open wound, left lower leg, initial encounter; L84 Corns and callosities; I87.2 Venous insufficiency (chronic) (peripheral); M77.31 Calcaneal spur, right foot; L88 Pyoderma gangrenosum; I10 Essential (primary) hypertension; D89.89 Other specified disorders involving the immune mechanism, not elsewhere classified; G99.0 Autonomic neuropathy in diseases classified elsewhere; I48.91 Unspecified atrial fibrillation; M13.80 Other specified arthritis, unspecified site; W45.8XXA Other foreign body or object entering through skin, initial encounter; Z01.810 Encounter for preprocedural cardiovascular examination; Z94.5 Skin transplant status
CPT/HCPCS: 36415; 82948

== ENCOUNTER 2019-10-29 10:56 | Outpatient (RCR) | payer MEDICARE ==
[~2019-10-29 10:56] MED LIST changes: -COLLAGENASE OINTMENT 30 GM TUBE ONE; -MUPIROCIN 2% OINT 22 GM TUBE ONE
[2019-10-29] MEDS ORDERED: MUPIROCIN 2% OINT 22 GM TUBE ONE (13:41)
[2019-10-29] MEDS ORDERED: COLLAGENASE OINTMENT 30 GM TUBE ONE (13:41)
[2019-10-29] MEDS ORDERED: LIDOCAINE/PRILOCAINE 2.5-2.5% KIT ONE (13:41)
== END 2019-11-02 ==
LOC: WCC 10:56
PROVIDERS: ATTEND Family Medicine
DX: T81.89XA Other complications of procedures, not elsewhere classified, initial encounter (principal); T86.821 Skin graft (allograft) (autograft) failure; Y83.8 Other surgical procedures as the cause of abnormal reaction of the patient, or of later complication, without mention of misadventure at the time of the procedure; E11.8 Type 2 diabetes mellitus with unspecified complications; S81.802A Unspecified open wound, left lower leg, initial encounter; I87.2 Venous insufficiency (chronic) (peripheral); L88 Pyoderma gangrenosum; L84 Corns and callosities; M77.31 Calcaneal spur, right foot; I10 Essential (primary) hypertension; D89.89 Other specified disorders involving the immune mechanism, not elsewhere classified; G99.0 Autonomic neuropathy in diseases classified elsewhere; I48.91 Unspecified atrial fibrillation; M13.80 Other specified arthritis, unspecified site; Z94.5 Skin transplant status; W45.8XXA Other foreign body or object entering through skin, initial encounter; Z01.810 Encounter for preprocedural cardiovascular examination
CPT/HCPCS: 36415; 82948

== ENCOUNTER 2019-11-12 10:36 | Outpatient (RCR) | payer MEDICARE ==
[~2019-11-12 10:36] MED LIST changes: +COLLAGENASE OINTMENT 30 GM TUBE ONE; +MUPIROCIN 2% OINT 22 GM TUBE ONE
[2019-11-12] MEDS ORDERED: MUPIROCIN 2% OINT 22 GM TUBE ONE (14:42)
[2019-11-12] MEDS ORDERED: COLLAGENASE OINTMENT 30 GM TUBE ONE (14:42)
[2019-11-12] MEDS ORDERED: LIDOCAINE/PRILOCAINE 2.5-2.5% KIT ONE (14:42)
== END 2019-12-02 ==
LOC: WCC 10:36
PROVIDERS: ATTEND Family Medicine
DX: T86.821 Skin graft (allograft) (autograft) failure (principal); T81.89XA Other complications of procedures, not elsewhere classified, initial encounter; E11.8 Type 2 diabetes mellitus with unspecified complications; S81.802A Unspecified open wound, left lower leg, initial encounter; I87.2 Venous insufficiency (chronic) (peripheral); L88 Pyoderma gangrenosum; S90.822A Blister (nonthermal), left foot, initial encounter; L84 Corns and callosities; M77.31 Calcaneal spur, right foot; I10 Essential (primary) hypertension; D89.89 Other specified disorders involving the immune mechanism, not elsewhere classified; G99.0 Autonomic neuropathy in diseases classified elsewhere; I48.91 Unspecified atrial fibrillation; M13.80 Other specified arthritis, unspecified site; Z94.5 Skin transplant status; Z01.810 Encounter for preprocedural cardiovascular examination
CPT/HCPCS: 36415; 82948